=== PATIENT | male | born 1990 | race Caucasian/White ===

== ENCOUNTER → 2020-01-29 20:32 | Outpatient (REF) | payer MEDICARE, MEDICAID, SELFPAY | LOC: HO.SL 20:32 | PROVIDERS: Visit Provider Psychiatry & Neurology Neurology | DX: G47.33 Obstructive sleep apnea (adult) (pediatric) (principal) | CPT/HCPCS: 95811 ==

== ENCOUNTER → 2020-02-19 15:36 | Outpatient (BNVA) | payer MEDICARE, MEDICAID, SELFPAY | PROVIDERS: PCP Nurse Practitioner Family; Referring Provider Nurse Practitioner Family; Visit Provider Urology | DX: Z76.89 Persons encountering health services in other specified circumstances (principal) | CPT/HCPCS: 99212 ==

== ENCOUNTER 2020-03-25 17:49 | Outpatient (REF) | payer MEDICARE, MEDICAID, SELFPAY ==
--- NOTE | 2020-03-25 18:15 | MR_ITS ---
EXAMINATION: MRI OF THE BRAIN WITHOUT CONTRAST CLINICAL INFORMATION: Spasticity, parkinsonism, progressive supranuclear palsy. COMPARISON: There are no prior studies available for comparison at time of dictation.. TECHNIQUE: MRI of the brain was obtained using routine sequences without contrast. FINDINGS: No diffusion abnormalities are identified to suggest an acute or subacute infarct. No mass effect or midline shift is seen. There is mild commensurate prominence the ventricles and sulci. There are extensive linear areas of increased T2 and FLAIR signal in the bilateral centra semiovale. These areas have central low FLAIR signal hyperintense T2 signal. No extra-axial fluid collections are seen. The brainstem and cerebellum are normal. No pathologic magnetic susceptibility artifact is identified on the gradient refocused acquisition. The craniovertebral junction and marrow signal appear normal. 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 The major intracranial flow-voids at the level of the [place] are preserved. The dural venous sinus flow-voids are maintained. The mastoid air cells are well-aerated. There is a retention cyst in the inferior right maxillary sinus. MR/MR head/brain wo con IMPRESSION: 1. There are no acute bleeds or infarcts. No masses are demonstrated. 2. There are extensive areas of increased T2 and FLAIR signal parallel to the bodies of the lateral ventricles bilaterally and into the bilateral centra semiovale, which are nonspecific. They may be consistent with sequelae of a metabolic disorder, leukoencephalopathy which is age-indeterminate, sequelae of ischemia or other process. Correlate with patient history for possible or metabolic cause.
== END 2020-03-25 17:50 | disposition home or self-care (01) ==
LOC: HO.MRI 17:49
PROVIDERS: Visit Provider Psychiatry & Neurology Neurology
DX: Z13.89 Encounter for screening for other disorder (principal)
CPT/HCPCS: 70551; 99212

== ENCOUNTER 2020-03-26 19:07 | Inpatient (IN) | payer MEDICARE, MEDICAID, SELFPAY ==
[2020-03-26 20:53] VITALS: BP 109/67; PULSE 154; RESP 24; TEMP 37; BMI 23.6
--- NOTE | 2020-03-26 21:10 | PC.NURSE ---
PCT AND RN TRIED TO STRAIGHT CATH PATIENT IN TRIAGE. UNSUCCESSFUL, CATHETER COULD BE FELT COILING. NO BLEEDING OR TRAUMA.
--- NOTE | 2020-03-26 22:08 | ED.MALEGU ---
HPI - Male Genitourinary General Chief complaint: Urogenital-Male Stated complaint: difficulty urinating Time Seen by Provider: 03/26/20 22:08 Source: patient and family Mode of arrival: ambulatory Limitations: no limitations and other History of Present Illness HPI Narrative: Patient history of TBI increased anxiety with neurogenic bladder catheterized sometimes unable to catheterize for last 8 hours no urination, patient very anxious bladder scan done in the ER showed no urine in the bladder patient never had any problem similar to like this in the past patient denied any fever no chills no discomfort when urinate no back pain no nausea no vomiting no use of any anticholinergic medication Onset (ago): hour(s) (8) Related Data Home Medications Medication Instructions Recorded Confirmed acetaminophen 500 mg tablet 500 mg PO Q6H PRN 02/19/20 02/26/20 citalopram 40 mg tablet 40 mg PO DAILY 02/19/20 02/26/20 clonazepam 0.5 mg tablet 0.5 mg PO BID PRN 02/19/20 02/26/20 ibuprofen 800 mg tablet 800 mg PO Q8H PRN 02/19/20 02/26/20 lamotrigine 150 mg tablet 150 mg PO DAILY 02/19/20 02/26/20 lamotrigine 25 mg tablet mg PO Q OTHER DAY PRN 02/19/20 02/26/20 sildenafil 100 mg tablet 100 mg PO DAILY PRN 02/19/20 02/26/20 ziprasidone HCl 40 mg capsule 40 mg PO BID 02/19/20 02/26/20 ziprasidone HCl 60 mg capsule 60 mg PO BID 02/19/20 02/26/20 Previous Rx's Medication Instructions Recorded lisinopril 10 mg tablet 10 mg PO DAILY #30 tab 12/31/19 lactulose 10 gram/15 mL oral 15 ml PO DAILY #450 cap 01/24/20 solution omeprazole 20 mg capsule,delayed 40 mg PO DAILY #60 cap 02/24/20 release baclofen 20 mg tablet 20 mg PO DAILY 30 Days #30 tab 03/06/20 ascorbic acid (vitamin C) 1,000 mg 1 g PO DAILY 90 Days #90 tab 03/25/20 tablet mirabegron 50 mg tablet,extended 50 mg PO DAILY 90 Days #90 tab 03/25/20 release 24 hr amlodipine 2.5 mg tablet 2.5 mg PO DAILY #30 tab 03/26/20 Allergies Allergy/AdvReac Type Severity Reaction Status Date / Time No Known Allergies Allergy Verified 03/26/20 20:52 [No Known Allergies*] Review of Systems Review of Systems: Constitutional : No Weight loss, No Fever, No Chills ENT/Mouth : No sore throat, No Rhinorrhea Eyes: No Eye Pain, No Swelling Cardiovascular : No Chest Pain, no palpitations Respiratory : No Cough, No Sputum, no shortness of breath Gastrointestinal : no Nausea, No Vomiting, No Diarrhea, No abdominal Pain, no black stools Genitourinary : No Dysuria, No Urinary Frequency Musculoskeletal : No joint pain, No Myalgias, No Joint Swelling Skin : No Skin Lesions, No rash Neuro : No Weakness, No Numbness, No Dizziness, No Headache Psych : No Anxiety/Panic, No Depression Heme/Lymph: No Bruising, No Lymphadenopathy Endocrine : No Polyuria, No Polydipsia All other systems reviewed and are negative [facility] Past Medical History Medical History Spasticity Social History Social History Advance Directives: No Advance Directives Information Provided: Yes Physical Exam Vital Signs: Vital Signs: Last Vital Signs Temp 98.6 F 03/26/20 20:53 Pulse 154 H 03/26/20 20:53 Resp 24 H 03/26/20 20:53 BP 109/67 03/26/20 20:53 Body Mass Index 23.6 Appearance: Alert. Oriented X3. No acute distress very anxious. Moving around restless Eyes: Pupils equal, round and reactive to light. ENT: Pharynx normal. Neck: Normal inspection. Neck supple. CVS: Tachycardia Pulses normal. Respiratory: No respiratory distress. Breath sounds normal. Abdomen: Soft and nontender. Bowel sounds are present, no mass palpable, no CVA tenderness, no bladder fullness Skin: Skin warm and dry. Normal skin color. Normal skin turgor. Extremities: No lower extremity edema. Neuro: Oriented X 3. No motor deficit. No sensory deficit. Course Course Course Narrative: Straight cath was tried using pediatric feeding tube no urine came out bladder scan was also showing 0 urine patient has anxiety and bladder spasm will give him p.o. fluids recheck him after some time Reevaluation(s) Reevaluation #1: Patient has a leukocytosis etiology not very clear urine sample is not available no bandemia waiting for the lactic acid level blood cultures ordered will give a dose of Rocephin likely UTI versus leukemoid reaction. Will get the CT scan to rule out any bladder outlet obstruction Time: 00:42 MDM - Male Genitourinary MDM Narrative Medical decision making narrative: Patient with neurogenic bladder with anuria for last 8 hours bladder scan is empty CT scan also did not show much urine in the bladder patient received 1 L of IV fluid and drank 20 oz of water in the ER. Very anxious no fever etiology is not very clear will give him empirically Rocephin for possible UTI awaiting for the urine sample patient is by labs septic with elevated lactic acid level elevated WBC count and tachycardia. Likely source of infection is urine. Will admit patient for IV hydration IV antibiotics. Patient received more than 30 cc/kg of IV fluid I suspected severe sepsis at 01:45 once I have the chemistry and lactic acid back which showed ARON with lactic acidosis. Focused exam for sepsis was done at 01:55. Will admit patient to hospitalist service Differential Diagnosis Differential diagnosis: Likely urinary tract infection, urethritis, prostatitis and acute retention of urine Medical Records Attestation: I reviewed the patient's medical records. Lab Data Attestation: I reviewed the patient's lab results. Result diagrams: 03/26/20 23:29 03/27/20 01:06 Labs: Lab Results 03/26/20 03/26/20 03/27/20 Range/Units 23:29 23:29 01:06 WBC 44.3 H* (4.8-10.8) X10*3/uL RBC 5.81 H (4.60-5.80) X10*6/uL Hgb 15.9 (14.0-18.0) g/dl Hct 47.1 (42-52) % MCV 81.1 (80-98) fL MCH 27.4 (27.0-33.0) pg MCHC 33.8 (31.0-36.0) g/dl RDW 13.7 (11.0-16.0) % Plt Count 476 H (160-400) X10*3/uL MPV 10.0 (9.4-12.4) fL Immature Gran % (Auto) 1.8 H (0.0-0.4) % Neut % (Auto) 84.7 H (45-73) % Lymph % (Auto) 4.1 L (20-40) % Christian % (Auto) 9.1 (2-11) % Eos % (Auto) 0.0 (0-4) % Baso % (Auto) 0.3 (0-2) % Lymph # (Auto) 1.8 (1.2-4.9) X10*3/uL Christian # (Auto) 4.0 H (0.1-1.2) X10*3/uL Eos # (Auto) 0.0 (0.0-0.4) X10*3/uL Baso # (Auto) 0.1 (0.0-0.2) X10*3/uL Abs Immat Gran (auto) 0.79 H (0.00-0.03) X10*3/uL Absolute Neuts (auto) 37.6 H (2.0-8.3) X10*3/uL Absolute Nucleated RBC 0.000 (0.0-0.012) X10*3/uL Nucleated RBC % (auto) 0.0 (0.0-0.2) /100WBC Smear Tech's Comments VERIFIED Sodium Cancelled Potassium Cancelled Chloride Cancelled Carbon Dioxide Cancelled Anion Gap Cancelled BUN Cancelled Creatinine Cancelled Estim Creat Clear Calc Cancelled Estimated GFR Cancelled Random Glucose Cancelled Lactic Acid 5.2 H* (0.5-2.0) mmol/L Calcium Cancelled 03/27/20 Range/Units 01:06 WBC (4.8-10.8) X10*3/uL RBC (4.60-5.80) X10*6/uL Hgb (14.0-18.0) g/dl Hct (42-52) % MCV (80-98) fL MCH (27.0-33.0) pg MCHC (31.0-36.0) g/dl RDW (11.0-16.0) % Plt Count (160-400) X10*3/uL MPV (9.4-12.4) fL Immature Gran % (Auto) (0.0-0.4) % Neut % (Auto) (45-73) % Lymph % (Auto) (20-40) % Christian % (Auto) (2-11) % Eos % (Auto) (0-4) % Baso % (Auto) (0-2) % Lymph # (Auto) (1.2-4.9) X10*3/uL Christian # (Auto) (0.1-1.2) X10*3/uL Eos # (Auto) (0.0-0.4) X10*3/uL Baso # (Auto) (0.0-0.2) X10*3/uL Abs Immat Gran (auto) (0.00-0.03) X10*3/uL Absolute Neuts (auto) (2.0-8.3) X10*3/uL Absolute Nucleated RBC (0.0-0.012) X10*3/uL Nucleated RBC % (auto) (0.0-0.2) /100WBC Smear Tech's Comments Sodium 136 Potassium 5.0 Chloride 92 L Carbon Dioxide 20 L Anion Gap 29 H BUN 30 H Creatinine 2.29 H Estim Creat Clear Calc 48.2 Estimated GFR 33 Random Glucose 104 Lactic Acid (0.5-2.0) mmol/L Calcium 9.[address] scan - pelvis: Attestation: I personally reviewed and interpreted this imaging study as follows: Radiologist's impression: CT/CT abdomen pelvis wo con IMPRESSION: No acute finding in the abdomen or pelvis. Left upper pole renal cyst with otherwise normal appearance of the kidneys. Decompressed bladder. Left adrenal adenoma. Critical Care Time Critical Care Time Critical Care Time: Yes Total Critical Care Time: 40 Attestation: Patient care and management Discharge Plan Discharge Clinical Impression: Acute retention of urine Urinary tract infection Qualifiers: Urinary tract infection type: acute cystitis Hematuria presence: without hematuria Qualified Code(s): N30.00 - Acute cystitis without hematuria Sepsis Qualifiers: Sepsis type: sepsis due to unspecified organism Sepsis acute organ dysfunction status: with acute organ dysfunction Severe sepsis acute organ dysfunction type: acute renal failure Acute renal failure type: unspecified Severe sepsis shock status: without septic shock Qualified Code(s): A41.9 - Sepsis, unspecified organism Patient Disposition: Admitted As Inpatient
--- NOTE | 2020-03-26 22:26 | PC.NURSE ---
PT TO ROOM WITH C/O UNABLE TO URINATE . PT ARRIVES ALERT AND VERY ANXIOUS. PT IS DIAPHORETIC AND CONSTANTLY PUSHING ON LOWER ABD AREA. PT DRINKING WATER. PT SELF CATHS AT HOME. PT ARRIVES WITH GIRLFRIEND AT BEDSIDE WITH PT. BLADDER SCAN NEG. AWARE AND IN ROOM FOR EVAL.
[2020-03-26] MEDS: LORazepam 2 MG/ML VIAL IM (22:37)
--- NOTE | 2020-03-26 22:39 | PC.NURSE ---
PT MEDICATED FOR ANXIETY.
--- NOTE | 2020-03-26 23:19 | PC.NURSE ---
Bladder scan 40 ML. Pt visibly uncomfortable, unable to sit still, diaphoretic. MD aware.
--- NOTE | 2020-03-26 23:21 | PC.NURSE ---
MD at bedside, plan for IV, labs and CT of abdomen.
--- NOTE | 2020-03-26 23:30 | PC.NURSE ---
IV established, labs drawn. Plan for Ativan and CT. Continue to monitor.
[2020-03-26 23:35] LABS: Basophils Absolute Auto 0.1 X10*3/uL (0.0-0.2); Basophils Percent Auto 0.3 % (0-2); Hematocrit 47.1 % (42-52); Hemoglobin 15.9 g/dl (14.0-18.0); Imm Gran Abs Auto 0.79 X10*3/uL (0.00-0.03); Imm Gran Pct Auto 1.8 % (0.0-0.4); Lymphocytes Absolute Auto 1.8 X10*3/uL (1.2-4.9); Lymphocytes Percent Auto 4.1 % (20-40); MANUAL DIFF FLAG SCAN; Mean Corpuscular HGB Conc 33.8 g/dl (31.0-36.0); Mean Corpuscular Hemoglobin 27.4 pg (27.0-33.0); Mean Corpuscular Volume 81.1 fL (80-98); Monocytes Percent Auto 9.1 % (2-11); Neutrophils Absolute Auto 37.6 X10*3/uL (2.0-8.3); Neutrophils Percent Auto 84.7 % (45-73); Platelet Count 476 X10*3/uL (160-400); Red Blood Count 5.81 X10*6/uL (4.60-5.80); Red Cell Distribution Width 13.7 % (11.0-16.0); SCAN SMEAR FLAG 1
[2020-03-26] MEDS: LORazepam 2 MG/ML VIAL 1 MG IVPUSH (23:35)
[2020-03-26] MEDS: Phenazopyridine HCL 200 MG TABLET PO (23:36)
[2020-03-26] MEDS: 0.9 % Sodium Chloride 1,000 ML 999 ML IVCONT (23:37)
[2020-03-26 23:43] LABS: White Blood Count 44.3 X10*3/uL (4.8-10.8)
[2020-03-26 23:54] LABS: SLIDE REVIEW VERIFIED
[2020-03-27] VITALS (12 sets, daily range): BP systolic 102–134; BP diastolic 56–80; PULSE 68–101; RESP 16–26; TEMP 36.3–37; O2SAT 95–98
--- NOTE | 2020-03-27 00:01 | CT_ITS ---
EXAMINATION: CT ABDOMEN AND PELVIS WITHOUT CONTRAST CLINICAL INFORMATION: Lateral obstruction COMPARISON: Radiograph 10/17/2019 TECHNIQUE: Multidetector volumetric imaging was performed from the superior aspect of the liver through the pubic symphysis. Sagittal and coronal reformatted images were obtained on the technologist's workstation. Multiple acquisitions performed due to patient motion, not following commands. This CT examination was performed using dose optimization techniques as appropriate, variously including the following: *Automated exposure control *Adjustment of mA and/or kV according to patient size (this includes techniques or standardized protocols for targeted exams where dose is matched to indication/reason for exam; i.e. extremities or head) *Use of iterative reconstruction technique DLP: 969 mGy-cm FINDINGS: LUNG BASES: The visualized lung bases are unremarkable. LIVER, GALLBLADDER, AND BILIARY TREE: The liver is normal in size, shape, and attenuation. No focal hepatic lesion or biliary ductal dilatation is present. Stone noted in the gallbladder lumen measuring PANCREAS: Unremarkable. SPLEEN: Unremarkable. ADRENAL GLANDS: The right adrenal gland is unremarkable. 2.3 cm left adrenal gland nodule which is consistent with a lipid rich adenoma. KIDNEYS AND URETERS: The kidneys are normal in size, shape, and attenuation. No hydronephrosis, hydroureter, or calculi seen. No perinephric stranding. Left upper pole 1.7 cm cyst noted. BLADDER: Decompressed with no gross abnormality. GASTROINTESTINAL TRACT: The stomach is unremarkable. Small bowel normal in caliber. No bowel obstruction. No colonic wall thickening or inflammatory change. Partially visualized normal appendix. No free air. No free fluid. ABDOMINAL WALL: Small fat-containing left inguinal hernia. LYMPH NODES: Normal. VASCULAR: Unremarkable. PELVIC VISCERA: The prostate and seminal vesicles are unremarkable. OSSEOUS STRUCTURES: No acute or suspicious osseous abnormality. CT/CT abdomen pelvis wo con IMPRESSION: No acute finding in the abdomen or pelvis. Left upper pole renal cyst with otherwise normal appearance of the kidneys. Decompressed bladder. Left adrenal adenoma.
--- NOTE | 2020-03-27 00:12 | PC.NURSE ---
PT GIVEN 2ND DOSE OF ATIVAN WITHOUT RELIEF. PT IS CONSTANTLY PUSHING ON LOWER ABD AREA CONSTANTLY, PT STATES I THINK I CAN PUSH URINE OUT . +DIAPHORETIC. NS INFUSING WITHOUT DIFFICULTY. PT ALSO DRINKING WATER PO. PT AWAITING FOR CT.
[2020-03-27] MEDS: ondansetron HCL 4 MG/2 ML VIAL IVPUSH (00:20)
[2020-03-27] MEDS: Morphine Sulfate 4 MG/ML CARTRIDGE IVPUSH (00:21)
[2020-03-27] MEDS: Haloperidol Lactate 5 MG/ML VIAL 2 MG IM (01:07)
[2020-03-27] MEDS: 0.9 % Sodium Chloride 1,000 ML 999 ML IVCONT ×2 (01:21→02:40)
[2020-03-27] MEDS: cefTRIAXone sodium 1 GM in 0.9 % Sodium Chloride 50 ML IV ×2 (01:26→07:52)
[2020-03-27 01:43] LABS: Lactic Acid 5.2 mmol/L (0.5-2.0)
[2020-03-27 01:44] LABS: Anion Gap 29 (12-20); Blood Urea Nitrogen 30 mg/dL (9-16); Calcium 9.7 mg/dL (8.4-10.2); Carbon Dioxide 20 mmol/L (22-29); Chloride 92 mmol/L (96-108); Creatinine Clr Calc Pharmacy 48.2; Estimated Glomerular Filt Rate 33; Glucose Random 104 mg/dL (60-115); Sodium 136 mmol/L (135-145)
--- NOTE | 2020-03-27 02:00 | PC.NURSE ---
POPE 16F INSERTED W/O DIFFICULTY, MICAH COLORED URINE OBTAINED IN POPE BAG. SAMPLE SENT TO LAB. PT REMAINS CONSTANTLY PUSHING ON BLADDER D/T FEELING LIKE I HAVE TO URINATE PT TOLD SEVERAL TIMES TO STOP TOUCHING THAT AREA.
[2020-03-27] MEDS: ALPRAZolam 0.5 MG TABLET 2 MG PO (02:07)
[2020-03-27 03:21] LABS: Reflex Lactate? Lactic Acid Added
[2020-03-27 03:45] LABS: Glucose Urine UA NEG (NEG); Leukocyte Esterase Urine NEG (NEG); Nitrite Urine POS (NEG); PH 5.5 (5.0-8.0); Specific Gravity - Urine 1.015 (1.005-1.025); Urine Blood 3+ (NEG); Urine Ketones NEG (NEG); Urine Protein 2+ MG/DL (NEG-TRACE)
[2020-03-27 03:46] LABS: Appearance Urine HAZY; Color Urine ORANGE
[2020-03-27 03:53] LABS: Amorphous Sediment Urine 2+ /LPF; Bacteria Urine 1+ /LPF; Mucus Urine 2+ /LPF; Squamous Epithelial Cell Urine 2+ /LPF
[2020-03-27 03:56] LABS: COVID-19 Test Negative (Negative)
[2020-03-27 04:14] LABS: Amphetamine Screen Urine POSITIVE (Not Detect); Barbiturates, Urine Not Detected (Not Detect); Benzodiazepines Screen Urine Not Detected (Not Detect); Cannabinoid Screen Urine POSITIVE (Not Detect); Cocaine Screen Urine Not Detected (Not Detect); Opiate Screen Urine POSITIVE (Not Detect); Phencyclidine Screen Urine Not Detected (Not Detect)
[2020-03-27 04:20] LABS: ~Lactic Acid-LAB USE ONLY 1.9 mmol/L (0.5-2.0)
--- NOTE | 2020-03-27 04:29 | PC.NURSE ---
HOSPITALIST IN ROOM FOR EVAL.
--- NOTE | 2020-03-27 05:30 | P.HPHOSP_ITS ---
History of Present Illness Date of Service: 03/27/20 Chief Complaint: Urinary retention This is a 29-year-old with past medical history of TBI, hypertension, spasticity, ANNMARIE, overactive bladder who presents to the hospital complaining of urinary retention. Patient reports the symptoms started the day prior to adm ission, has no fever or chills, has suprapubic pain, no dysuria, but has urgency. He self catheterizes sometimes and reports no nausea vomiting, no diarrhea but has constipation, he has no lower extremity edema. On arrival to the ED patient has a temp of 97.7?, heart rate of 154, respiratory rate of 24, blood pressure 109/67, satting 98% on room air. Labs are significant for WBC count of 44, hemoglobin of 15.9, sodium of 136, potassium 5.0, BUN of 30, creatinine of 2.29, baseline around 0.79, lactic acid of 5.2 , UA positive for nitrites, as well as urine WBC Abdominal CT shows no acute finding in the abdomen or pelvis, left upper pole renal cyst with otherwise normal appearance of the kidneys Past medical history: Hypertension, spasticity, ANNMARIE, overactive bladder, history of TBI Past surgical history: Denies Family history: Denies Social history: Comes from home, lives with his girlfriend, smokes 1 pack per day, denies any alcohol or illicit drug use Review of Systems Review of Systems: Yes all other systems are reviewed and are negative [facility] Medical History (Updated 03/27/20 @ 05:51 by Tello Maldonado MD) Obstructive sleep apnea Overactive bladder Spasticity Social History Advance Directives: No Advance Directives Information Provided: Yes Meds Allergies Allergy/AdvReac Type Severity Reaction Status Date / Time No Known Allergies Allergy Verified 03/26/20 20:52 [No Known Allergies*] Home Medications Medication Instructions Recorded Confirmed Type citalopram 40 mg tablet 40 mg PO DAILY 02/19/20 03/27/20 History clonazepam 0.5 mg tablet 0.5 mg PO BID PRN 02/19/20 03/27/20 History lamotrigine 150 mg tablet 150 mg PO DAILY 02/19/20 03/27/20 History sildenafil 100 mg tablet 100 mg PO DAILY PRN 02/19/20 03/27/20 History ziprasidone HCl 40 mg capsule 40 mg PO BID 02/19/20 03/27/20 History ziprasidone HCl 60 mg capsule 60 mg PO BID 02/19/20 03/27/20 History Physical Exam Vital Signs and Narrative: Vital Signs: Last Vital Signs Temp 98.6 F 03/26/20 20:53 Pulse 96 03/27/20 04:00 Resp 16 03/27/20 04:00 BP 102/65 03/27/20 02:00 Pulse Ox 97 03/27/20 04:00 Body Mass Index 23.6 Const: Other: Diaphoretic, anxious, appears in distress General: cooperative Eyes: General: appearance normal, both eyes and all related structures Resp: Effort & Inspection: normal respiratory effort and able to speak in complete sentences Cardio: Rate: regular rate Rhythm: regular rhythm GI: Palpation (GI): Soft to palpation Auscultation: normal bowel sounds Skin: General skin exam: no rashes or lesions noted Neuro: Cognition (Neuro): normal cognition Extrem: General: Yes normal to inspection and Yes no pedal edema Results Labs CBC and Chem 7: 03/26/20 23:29 03/27/20 01:06 Labs: Laboratory Results - last 24 hr 03/26/20 03/26/20 03/27/20 23:29 23:29 01:06 MCV 81.1 MCH 27.4 MCHC 33.8 RDW 13.7 Plt Count 476 H MPV 10.0 Immature Gran % (Auto) 1.8 H Neut % (Auto) 84.7 H Lymph % (Auto) 4.1 L [place] % (Auto) 9.1 Eos % (Auto) 0.0 Baso % (Auto) 0.3 Lymph # (Auto) 1.8 [place]rell # (Auto) 4.0 H Eos # (Auto) 0.0 Baso # (Auto) 0.1 Abs Immat Gran (auto) 0.79 H Absolute Neuts (auto) 37.6 H Absolute Nucleated RBC 0.000 Nucleated RBC % (auto) 0.0 Smear Tech's Comments VERIFIED Anion Gap Cancelled Estim Creat Clear Calc Cancelled Estimated GFR Cancelled Random Glucose Cancelled Lactic Acid 5.2 H* Lactic Acid Fup @ 2Hr Calcium Cancelled Urine Color Urine Appearance Urine pH Ur Specific [place] Urine Protein Urine Glucose (UA) Urine Ketones Urine Blood Urine Nitrite Ur Leukocyte Esterase Urine RBC Urine WBC Ur Squamous Epith Cells Amorphous Sediment Urine Bacteria Granular Casts Urine Mucus Urine Opiates Screen Ur Barbiturates Screen Ur Phencyclidine Scrn Ur Amphetamines Screen U Benzodiazepines Scrn Urine Cocaine Screen U Marijuana (THC) Screen COVID-19 (GRADY) COVID-19 Responsa Com 03/27/20 03/27/20 03/27/20 01:06 03:33 03:33 MCV MCH MCHC RDW Plt Count MPV Immature Gran % (Auto) Neut % (Auto) Lymph % (Auto) [place] % (Auto) Eos % (Auto) Baso % (Auto) Lymph # (Auto) [place] # (Auto) Eos # (Auto) Baso # (Auto) Abs Immat Gran (auto) Absolute Neuts (auto) Absolute Nucleated RBC Nucleated RBC % (auto) Smear Tech's Comments Anion Gap 29 H Estim Creat Clear Calc 48.2 Estimated GFR 33 Random Glucose 104 Lactic Acid Lactic Acid Fup @ 2Hr Calcium 9.7 Urine Color ORANGE Urine Appearance HAZY Urine pH 5.5 Ur Specific [place] 1.015 Urine Protein 2+ H Urine Glucose (UA) NEG Urine Ketones NEG Urine Blood 3+ H Urine Nitrite POS H Ur Leukocyte Esterase NEG Urine RBC 1-4 Urine WBC 5-9 H Ur Squamous Epith Cells 2+ Amorphous Sediment 2+ Urine Bacteria 1+ Granular Casts 10-14 Urine Mucus 2+ Urine Opiates Screen POSITIVE H Ur Barbiturates Screen Not Detected Ur Phencyclidine Scrn Not Detected Ur Amphetamines Screen POSITIVE H U Benzodiazepines Scrn Not Detected Urine Cocaine Screen Not Detected U Marijuana (THC) Screen POSITIVE H COVID-19 (GRADY) COVID-19 Responsa Com 03/27/20 03/27/20 03:34 03:34 MCV MCH MCHC RDW Plt Count MPV Immature Gran % (Auto) Neut % (Auto) Lymph % (Auto) [place] % (Auto) Eos % (Auto) Baso % (Auto) Lymph # (Auto) [place] # (Auto) Eos # (Auto) Baso # (Auto) Abs Immat Gran (auto) Absolute Neuts (auto) Absolute Nucleated RBC Nucleated RBC % (auto) Smear Tech's Comments Anion Gap Estim Creat Clear Calc Estimated GFR Random Glucose Lactic Acid Lactic Acid Fup @ 2Hr 1.9 Calcium Urine Color Urine Appearance Urine pH Ur Specific [place] Urine Protein Urine Glucose (UA) Urine Ketones Urine Blood Urine Nitrite Ur Leukocyte Esterase Urine RBC Urine WBC Ur Squamous Epith Cells Amorphous Sediment Urine Bacteria Granular Casts Urine Mucus Urine Opiates Screen Ur Barbiturates Screen Ur Phencyclidine Scrn Ur Amphetamines Screen U Benzodiazepines Scrn Urine Cocaine Screen U Marijuana (THC) Screen COVID-19 (GRADY) Negative COVID-19 Clin Com See Note Imaging Radiologist's Impressions: Impressions Abdomen/Pelvis CT 03/27/20 00:01 IMPRESSION: No acute finding in the abdomen or pelvis. Left upper pole renal cyst with otherwise normal appearance of the kidneys. Decompressed bladder. Left adrenal adenoma. Assessment and Plan (1) Urinary tract infection: Qualifiers: Hematuria presence: without hematuria Urinary tract infection type: acute cystitis Qualified Code(s): N30.00 - Acute cystitis without hematuria Status: Acute (2) Sepsis: Qualifiers: Acute renal failure type: unspecified Sepsis acute organ dysfunction status: with acute organ dysfunction Sepsis type: sepsis due to unspecified organism Severe sepsis acute organ dysfunction type: acute renal failure Severe sepsis shock status: without septic shock Qualified Code(s): A41.9 - Sepsis, unspecified organism; R65.20 - Severe sepsis without septic shock; N17.9 - Acute kidney failure, unspecified Status: Acute (3) Neurogenic urinary bladder disorder: Status: Acute (4) Lactic acidosis: Status: Acute (5) Leukocytosis: Status: Acute (6) ARON (acute kidney injury): Status: Acute This is a 29-year-old who presents to the hospital with urinary retention found to be in sepsis secondary to UTI # sepsis - most likely secondary to UTI - negative abdominal CT - has leukocytosis, tachycardia, tachypnea, Plan: - insert him on ceftriaxone - follow cultures - IV fluids # UTI - no evidence of pyelonephritis - most likely due to his history of self catheterization - ceftriaxone as above - follow cultures # ARON - secondary to sepsis as well as UTI - start IV fluids - follow BMP # leukocytosis - secondary to above - follow CBC # lactic acidosis - secondary to infection/sepsis - improved with IV fluids DVT prophylaxis: Heparin subQ
--- NOTE | 2020-03-27 07:27 | PC.NURSE ---
report taken form Inessa DUKES. pt sitting on end of bed upon assessment. pt constantly touching area of mahan insertion. instructed patient to try not to touch area often. pt stated ok . continues to touch area. breakfast provided. pt offers no complaints. waiting for bed assignment.
[2020-03-27] MEDS: 0.9 % Sodium Chloride 1,000 ML 100 ML IVCONT ×2 (07:51→17:00)
[2020-03-27] MEDS: Heparin Sodium,Porcine 5,000 UNIT/ML VIAL 5000 UNIT SUBCUT ×2 (07:53→19:18)
[2020-03-27] MEDS: 0.9 % Sodium Chloride Flush 3 ML SYRINGE IVFLUSH (07:59)
[2020-03-27] MEDS: polyethylene glycoL 3350 17 GM POWD.PACK PO (11:57)
[2020-03-27 12:14] LABS: Basophils Percent Auto 0.1 % (0-2); Eosinophils Percent Auto 0.1 % (0-4); Hematocrit 36.8 % (42-52); Hemoglobin 13.1 g/dl (14.0-18.0); Imm Gran Abs Auto 0.25 X10*3/uL (0.00-0.03); Imm Gran Pct Auto 0.9 % (0.0-0.4); Lymphocytes Absolute Auto 2.5 X10*3/uL (1.2-4.9); Lymphocytes Percent Auto 9.1 % (20-40); MANUAL DIFF FLAG SCAN; Mean Corpuscular HGB Conc 35.6 g/dl (31.0-36.0); Mean Corpuscular Hemoglobin 28.5 pg (27.0-33.0); Monocytes Absolute Auto 1.9 X10*3/uL (0.1-1.2); Monocytes Percent Auto 7.1 % (2-11); Neutrophils Absolute Auto 22.7 X10*3/uL (2.0-8.3); Neutrophils Percent Auto 82.7 % (45-73); Platelet Count 286 X10*3/uL (160-400); Red Cell Distribution Width 13.8 % (11.0-16.0); SCAN SMEAR FLAG 1; White Blood Count 27.5 X10*3/uL (4.8-10.8)
[2020-03-27 12:38] LABS: SLIDE REVIEW VERIFIED
[2020-03-27 12:48] LABS: Anion Gap 18 (12-20); Blood Urea Nitrogen 32 mg/dL (9-16); Carbon Dioxide 21 mmol/L (22-29); Chloride 98 mmol/L (96-108); Creatinine Clr Calc Pharmacy 87.7; Estimated Glomerular Filt Rate > 60; Glucose Random 87 mg/dL (60-115); Potassium 4.6 mmol/l (3.3-5.1); Sodium 132 mmol/L (135-145)
[2020-03-27 13:07] LABS: Calcium 8.2 mg/dL (8.4-10.2)
--- NOTE | 2020-03-27 13:36 | MHC.CM.PN ---
Met with patient in regards to d/c planning. Patient lives with his girlfiend and father, ambulates independently and had no services prior to coming to the hospital. Patient denies the need for services at d/c. PCP verified as Edmond Murillo. Patient's sister has a copy of his HCP. He will attempt to obtain a copy. IMM explained and signed. Patient's family will transport him home when medically stable. Continue to monitor for d/c needs.
[2020-03-27] MEDS: lamoTRIgine 25 MG TABLET 150 MG PO (14:24)
[2020-03-27] MEDS: clonazePAM 0.5 MG TABLET PO ×2 (15:26→22:19)
[2020-03-27] MEDS: Acetaminophen 325 MG TABLET 650 MG PO (19:17)
[2020-03-27] MEDS: Ziprasidone 40 MG CAPSULE PO (20:58)
[2020-03-27] MEDS: Baclofen 20 MG TABLET PO (22:19)
[2020-03-27] MEDS: Nicotine Polacrilex 2 MG GUM BUCCAL (22:19)
[2020-03-28] VITALS (7 sets, daily range): BP systolic 121–147; BP diastolic 53–83; PULSE 58–98; RESP 16–18; TEMP 36.4–36.9; O2SAT 96–98
[2020-03-28] MEDS: 0.9 % Sodium Chloride 1,000 ML 100 ML IVCONT ×3 (04:07→22:06)
[2020-03-28] MEDS: Acetaminophen 325 MG TABLET 650 MG PO ×3 (04:10→19:22)
[2020-03-28] MEDS: Omeprazole 20 MG CAPSULE.DR 40 MG PO (05:27)
[2020-03-28 05:29] LABS: MANUAL DIFF FLAG NO
[2020-03-28 05:31] LABS: Basophils Percent Auto 0.1 % (0-2); Eosinophils Percent Auto 0.2 % (0-4); Hematocrit 38.7 % (42-52); Imm Gran Abs Auto 0.07 X10*3/uL (0.00-0.03); Imm Gran Pct Auto 0.4 % (0.0-0.4); Lymphocytes Absolute Auto 2.2 X10*3/uL (1.2-4.9); Lymphocytes Percent Auto 13.3 % (20-40); Mean Corpuscular HGB Conc 33.6 g/dl (31.0-36.0); Mean Corpuscular Hemoglobin 27.6 pg (27.0-33.0); Mean Corpuscular Volume 82.2 fL (80-98); Mean Platelet Volume 10.5 fL (9.4-12.4); Monocytes Percent Auto 5.9 % (2-11); Neutrophils Percent Auto 80.1 % (45-73); Platelet Count 232 X10*3/uL (160-400); Red Blood Count 4.71 X10*6/uL (4.60-5.80); Red Cell Distribution Width 13.9 % (11.0-16.0); White Blood Count 16.2 X10*3/uL (4.8-10.8)
[2020-03-28 07:54] LABS: Anion Gap 16 (12-20); Blood Urea Nitrogen 19 mg/dL (9-16); Calcium 8.8 mg/dL (8.4-10.2); Carbon Dioxide 25 mmol/L (22-29); Chloride 104 mmol/L (96-108); Creatinine Clr Calc Pharmacy 139.8; Estimated Glomerular Filt Rate > 60; Glucose Random 98 mg/dL (60-115); Potassium 4.7 mmol/l (3.3-5.1); Sodium 140 mmol/L (135-145)
[2020-03-28] MEDS: cefTRIAXone sodium 1 GM in 0.9 % Sodium Chloride 50 ML IV (08:49)
[2020-03-28] MEDS: lamoTRIgine 25 MG TABLET 150 MG PO (08:50)
[2020-03-28] MEDS: Escitalopram Oxalate 20 MG TABLET PO (08:50)
[2020-03-28] MEDS: Mirabegron 50 MG TAB.ER.24H PO (08:50)
[2020-03-28] MEDS: Ascorbic Acid 500 MG TABLET 1000 MG PO (08:52)
[2020-03-28] MEDS: Ziprasidone 40 MG CAPSULE PO ×2 (08:53→21:13)
[2020-03-28] MEDS: Baclofen 20 MG TABLET PO ×3 (08:53→21:15)
[2020-03-28] MEDS: Heparin Sodium,Porcine 5,000 UNIT/ML VIAL 5000 UNIT SUBCUT ×2 (08:53→19:23)
[2020-03-28] MEDS: Nicotine Polacrilex 2 MG GUM BUCCAL ×5 (08:53→21:26)
[2020-03-28] MEDS: Lactulose 20 GM/30 ML SOLUTION 10 GM PO (08:53)
[2020-03-28] MEDS: 0.9 % Sodium Chloride Flush 3 ML SYRINGE IVFLUSH ×2 (08:54→16:14)
[2020-03-28] MEDS: Carbidopa/Levodopa 25/250 TABLET 1 TAB PO ×3 (09:08→21:14)
[2020-03-28] MEDS: clonazePAM 0.5 MG TABLET PO ×3 (09:08→21:14)
--- NOTE | 2020-03-28 09:18 | P.CDIC_ITS ---
CDI Concurrent Query Service Date: 03/28/20 Documentation Clarification: Please clarify if you are treating a proba ble/suspected/likely or confirmed: Clarity and consistency of documentation within the medical record: Sepsis due to UTI Severe sepsis due to UTI with acute organ failure (kidney) Please specify if known or other Provider Response: Sepsis PLEASE DO NOT DELETE/MODIFY EXISTING CONTENT Additional information is needed in order to code to the highest accuracy and appropriate Severity of Illness (SOI). Please clarify the information noted below in your progress notes and discharge summary. Risk Factors/Clinical Indicators/Treatments H&P: Assessment/plan: Sepsis, unspecified, severe sepsis w/o shock, w organ failure, ARON # Sepsis Sepsis most likely secondary to UTI # ARON most likely due to Sepsis LA 5.2 wbc 44.3 rr 22 hr 154 Ceftriaxone CDS: Funmilayo Holland CCS, CDIS Contact Number: [phone] Please Review the information above and exercise your independent professional judgment in responding to the query. If you concur, pleas document in the PROGRESS NOTES and DISCHARGE SUMMARY. If you do not agree with the query, please document in the query above. THIS QUERY IS PART OF THE PERMANENT MEDICAL RECORD
--- NOTE | 2020-03-28 11:25 | MHC.CM.PN ---
Per ROUNDS discussion, Patient continues on IV Ceftriaxone and cultures are pending.Home, no services is the goal for dc and cm will continue to follow for dc planning and possible need to adjust the dc plan.
[2020-03-28] MEDS: oxyCODONE HCl Immed Release 5 MG TABLET PO ×2 (14:56→21:14)
--- NOTE | 2020-03-28 15:54 | HO.PM.IMPN ---
Subjective Subjective Date of Service: 03/28/20 Interval History: patient seen and examined at bedside, patient reported generalized pain Review of Systems Constitutional : No Weight loss, No Fever, No Chills ENT/Mouth : No sore throat, No Rhinorrhea Eyes: No Eye Pain, No Swelling Cardiovascular : No Chest Pain, no palpitations Respiratory : No Cough, No Sputum, no shortness of breath Gastrointestinal : no Nausea, No Vomiting, No Diarrhea, No abdominal Pain, no black stools Genitourinary : No Dysuria, No Urinary Frequency Musculoskeletal : No joint pain, No Myalgias, No Joint Swelling Skin : No Skin Lesions, No rash Neuro : No Weakness, No Numbness, No Dizziness, No Headache Psych : No Anxiety/Panic, No Depression Heme/Lymph: No Bruising, No Lymphadenopathy Endocrine : No Polyuria, No Polydipsia All other systems reviewed and are negative Cardiovascular Cardiovascular: Denies chest pain and Reports dyspnea Respiratory Respiratory: Reports dyspnea Gastrointestinal Gastrointestinal: Denies abdominal pain Physical Exam Vital Signs: Vital Signs: Last Vital Signs Temp 98.4 F 03/28/20 15:23 Pulse 98 03/28/20 15:23 Resp 18 03/28/20 15:23 BP 121/53 L 03/28/20 15:23 Pulse Ox 96 03/28/20 15:23 Body Mass Index 23.6 Const: General: cooperative Eyes: General: appearance normal, both eyes and all related structures Resp: Effort & Inspection: normal respiratory effort and able to speak in complete sentences Cardio: Rate: regular rate Rhythm: regular rhythm GI: Palpation (GI): Soft to palpation Auscultation: normal bowel sounds Skin: General skin exam: no rashes or lesions noted Neuro: Cognition (Neuro): normal cognition Extrem: General: Yes normal to inspection and Yes no pedal edema Objective Data Current Medications Generic Name Dose Route Start Last Admin Trade Name Freq PRN Reason Stop Dose Admin Acetaminophen 650 mg 03/27/20 07:38 03/28/20 08:50 Acetaminophen 325 Mg Tablet PO 650 mg Q6H PRN Administration Pain, Mild (Pain Scale 1-3) Ascorbic Acid 1,000 mg 03/28/20 09:00 03/28/20 08:52 Ascorbic Acid 500 Mg Tablet PO 1,000 mg DAILY ALEX Administration Baclofen 20 mg 03/28/20 09:00 03/28/20 08:54 Baclofen 20 Mg Tablet PO Not Given DAILY ALEX Baclofen 20 mg 03/27/20 22:00 03/28/20 14:24 Baclofen 20 Mg Tablet PO 20 mg TID ALEX Administration Carbidopa/Levodopa 1 tab 03/27/20 22:00 03/28/20 14:24 Carbidopa/Levodopa 25/250 Tablet PO 1 tab TID ALEX Administration Clonazepam 0.5 mg 03/28/20 14:31 03/28/20 14:56 Clonazepam 0.5 Mg Tablet PO 0.5 mg TID PRN Administration Anxiety Docusate Sodium 100 mg 03/27/20 07:38 Docusate Sodium 100 Mg Capsule PO DAILY PRN Constipation Escitalopram Oxalate 20 mg 03/28/20 09:00 03/28/20 08:50 Escitalopram Oxalate 20 Mg Tablet PO 20 mg DAILY ALEX Administration Heparin Sodium (Porcine) 5,000 unit 03/27/20 07:38 03/28/20 08:53 Heparin Sodium,Porcine 5,000 Unit/Ml Vial SUBCUT 5,000 unit Q12H ALEX Administration Sodium Chloride 1,000 mls @ 100 mls/hr 03/27/20 07:38 03/28/20 13:47 Ns IVCONT 100 mls/hr .Q10H ALEX Administration Ceftriaxone Sodium 1 gm/ 50 mls @ 100 mls/hr 03/27/20 07:38 03/28/20 11:28 Sodium Chloride IV Infused Q24H ALEX Infusion Lactulose 10 gm 03/28/20 09:00 03/28/20 08:53 Lactulose 20 Gm/30 Ml Solution PO 10 gm DAILY ALEX Administration Lamotrigine 150 mg 03/27/20 14:00 03/28/20 08:50 Lamotrigine 25 Mg Tablet PO 150 mg DAILY ALEX Administration Mirabegron 50 mg 03/28/20 09:00 03/28/20 08:50 Mirabegron 50 Mg Tab.Er.24h PO 50 mg DAILY ALEX Administration Nicotine Polacrilex 2 mg 03/27/20 21:58 03/28/20 13:29 Nicotine Polacrilex 2 Mg Gum BUCCAL 2 mg Q2H PRN Administration Nicotine Cravings Omeprazole 40 mg 03/28/20 06:30 03/28/20 05:27 Omeprazole 20 Mg Capsule.Dr PO 40 mg DAILY@0630 ALEX Administration Ondansetron HCl 4 mg 03/27/20 07:38 Ondansetron Hcl 4 Mg/2 Ml Vial IVPUSH Q8H PRN Nausea and Vomiting Oxycodone HCl 5 mg 03/28/20 14:33 03/28/20 14:56 Oxycodone Hcl Immed Release 5 Mg Tablet PO 5 mg Q6H PRN Administration Pain, Moderate (Pain Scale 4-6 Polyethylene Glycol 17 gm 03/27/20 09:00 03/28/20 08:55 Polyethylene Glycol 3350 17 Gm Powd.Pack PO Not Given DAILY ALEX Sodium Chloride 3 ml 03/27/20 08:00 03/28/20 08:54 0.9 % Sodium Chloride Flush 3 Ml Syringe IVFLUSH 3 ml QSHIFT ALEX Administration Ziprasidone 40 mg 03/27/20 21:00 03/28/20 08:53 Ziprasidone 40 Mg Capsule PO 40 mg BID ALEX Administration Labs CBC & Chem 7: 03/28/20 05:09 03/28/20 07:15 Microbiology Microbiology Results: Microbiology 03/27/20 00:00 Urine clean catch - Clean Catch Midstream Urine Culture - Final No growth. 03/27/20 01:06 Blood - Venous Blood Culture - Preliminary No growth after 24 hours. 03/27/20 01:07 Blood - Venous Blood Culture - Preliminary No growth after 24 hours. Assessment and Plan (1) Urinary tract infection: Status: Acute (2) Sepsis: Status: Acute (3) Neurogenic urinary bladder disorder: Status: Acute (4) Lactic acidosis: Status: Acute (5) Leukocytosis: Status: Acute (6) ARON (acute kidney injury): Status: Acute Assessment and Plan: This is a 29-year-old who presents to the hospital with urinary retention found to be in sepsis secondary to UTI Sepsis most likely secondary to UTI negative abdominal CT continue ceftriaxone follow cultures IV fluids UTI No evidence of pyelonephritis continue ceftriaxone as above follow cultures ARON resolving Creatinine trending down continue IV fluids follow BMP Leukocytosis trending down secondary to above follow CBC l DVT prophylaxis: Heparin subQ
[2020-03-29 04:00] VITALS: BP 140/97; PULSE 63; RESP 18; TEMP 36.8; O2SAT 100
[2020-03-29] MEDS: clonazePAM 0.5 MG TABLET PO ×2 (04:40→12:06)
[2020-03-29] MEDS: Omeprazole 20 MG CAPSULE.DR 40 MG PO (06:06)
[2020-03-29] MEDS: oxyCODONE HCl Immed Release 5 MG TABLET PO (06:58)
[2020-03-29] MEDS: cefTRIAXone sodium 1 GM in 0.9 % Sodium Chloride 50 ML IV (07:46)
[2020-03-29] MEDS: polyethylene glycoL 3350 17 GM POWD.PACK PO (07:48)
[2020-03-29] MEDS: Baclofen 20 MG TABLET PO (07:49)
[2020-03-29] MEDS: Lactulose 20 GM/30 ML SOLUTION 10 GM PO (07:50)
[2020-03-29] MEDS: Mirabegron 50 MG TAB.ER.24H PO (07:50)
[2020-03-29] MEDS: Escitalopram Oxalate 20 MG TABLET PO (07:50)
[2020-03-29] MEDS: Ziprasidone 40 MG CAPSULE PO (07:50)
[2020-03-29] MEDS: Ascorbic Acid 500 MG TABLET 1000 MG PO (07:50)
[2020-03-29] MEDS: lamoTRIgine 25 MG TABLET 150 MG PO (07:50)
[2020-03-29] MEDS: Carbidopa/Levodopa 25/250 TABLET 1 TAB PO (07:50)
[2020-03-29] MEDS: Heparin Sodium,Porcine 5,000 UNIT/ML VIAL 5000 UNIT SUBCUT (07:51)
[2020-03-29] MEDS: 0.9 % Sodium Chloride 1,000 ML 100 ML IVCONT (07:57)
[2020-03-29 08:00] VITALS: BP 156/91; PULSE 70; RESP 20; TEMP 35.7; O2SAT 98
[2020-03-29 08:53] LABS: MANUAL DIFF FLAG NO
[2020-03-29 08:57] LABS: Basophils Percent Auto 0.1 % (0-2); Eosinophils Percent Auto 0.2 % (0-4); Hematocrit 38.3 % (42-52); Hemoglobin 12.6 g/dl (14.0-18.0); Imm Gran Abs Auto 0.08 X10*3/uL (0.00-0.03); Imm Gran Pct Auto 0.6 % (0.0-0.4); Lymphocytes Absolute Auto 2.2 X10*3/uL (1.2-4.9); Lymphocytes Percent Auto 17.1 % (20-40); Mean Corpuscular HGB Conc 32.9 g/dl (31.0-36.0); Mean Corpuscular Hemoglobin 27.4 pg (27.0-33.0); Mean Corpuscular Volume 83.3 fL (80-98); Mean Platelet Volume 9.9 fL (9.4-12.4); Monocytes Absolute Auto 0.7 X10*3/uL (0.1-1.2); Monocytes Percent Auto 5.7 % (2-11); Neutrophils Absolute Auto 9.6 X10*3/uL (2.0-8.3); Neutrophils Percent Auto 76.3 % (45-73); Platelet Count 250 X10*3/uL (160-400); Red Cell Distribution Width 13.9 % (11.0-16.0); White Blood Count 12.6 X10*3/uL (4.8-10.8)
[2020-03-29] MEDS: ondansetron HCL 4 MG/2 ML VIAL IVPUSH (09:18)
[2020-03-29 09:40] LABS: Anion Gap 16 (12-20); Blood Urea Nitrogen 10 mg/dL (9-16); Calcium 8.7 mg/dL (8.4-10.2); Carbon Dioxide 22 mmol/L (22-29); Chloride 107 mmol/L (96-108); Creatinine Clr Calc Pharmacy 147.3; Estimated Glomerular Filt Rate > 60; Glucose Random 149 mg/dL (60-115); Potassium 3.6 mmol/l (3.3-5.1); Sodium 141 mmol/L (135-145)
[2020-03-29] MEDS: Nicotine Polacrilex 2 MG GUM BUCCAL (09:47)
--- NOTE | 2020-03-29 11:26 | PM.DS ---
DS: Providers Provider Date of Service: 04/05/20 Date of admission: 03/27/20 04:35 Primary care physician: Unknown Physician DS: Diagnosis Discharge Diagnosis (1) Urinary tract infection: Status: Resolved (2) Sepsis: Status: Resolved (3) Neurogenic urinary bladder disorder: Status: Acute (4) Lactic acidosis: Status: Resolved (5) Leukocytosis: Status: Resolved (6) ARON (acute kidney injury): Status: Resolved DS: Medications Discharge Medications Home Medications: Home Medications Medication Instructions Recorded Confirmed citalopram 40 mg tablet 40 mg PO DAILY 02/19/20 03/27/20 clonazepam 0.5 mg tablet 0.5 mg PO TID PRN 02/19/20 03/27/20 lamotrigine 150 mg tablet 150 mg PO DAILY 02/19/20 03/27/20 sildenafil 100 mg tablet 100 mg PO DAILY PRN 02/19/20 03/27/20 ziprasidone HCl 40 mg capsule 40 mg PO BID 02/19/20 03/27/20 Myrbetriq 50 mg PO DAILY 03/27/20 03/27/20 carbidopa-levodopa 1 tab PO TID 03/27/20 03/27/20 Previous Rx's Medication Instructions Recorded lisinopril 10 mg tablet 10 mg PO DAILY #30 tab 12/31/19 lactulose 10 gram/15 mL oral 15 ml PO DAILY #450 cap 01/24/20 solution omeprazole 20 mg capsule,delayed 40 mg PO DAILY #60 cap 02/24/20 release amlodipine 2.5 mg tablet 2.5 mg PO DAILY #30 tab 03/26/20 baclofen 20 mg tablet 20 mg PO DAILY #30 tab 03/28/20 cefuroxime axetil 500 mg PO BID 7 Days #14 tab 03/29/20 DS: Summary Hospital Course Hospital Course: HPI 29-year-old with past medical history of TBI, hypertension, spasticity, ANNMARIE, overactive bladder who presents to the hospital complaining of urinary retention. Patient reports the symptoms started the day prior to admission, has no fever or chills, has suprapubic pain, no dysuria, but has urgency. He self catheterizes sometimes and reports no nausea vomiting, no diarrhea but has constipation, he has no lower extremity edema. On arrival to the ED patient has a temp of 97.7?, heart rate of 154, respiratory rate of 24, blood pressure 109/67, satting 98% on room air. Labs are significant for WBC count of 44, hemoglobin of 15.9, sodium of 136, potassium 5.0, BUN of 30, creatinine of 2.29, baseline around 0.79, lactic acid of 5.2 , UA positive for nitrites, as well as urine WBC Abdominal CT shows no acute finding in the abdomen or pelvis, left upper pole renal cyst with otherwise normal appearance of the kidneys. Hospital course 29-year-old male with history of TBI , admitted with acute kidney injury and possible sepsis secondary to UTI, mahan catheter was placed, patient was started on IV antibiotic, blood cultures remain negative, Aron I was resolved , creatinine was back to normal, sepsis resolved, patient was stable discharged home on p.o. antibiotic and recommended to patient frequent catheterization at home, Time Spent with Patient Time attestation: Total time spent providing and/or coordinating discharge services: Discharge coordination time: Greater than 30 minutes Physical Exam Vital Signs: Vital Signs: Last Vital Signs Temp 96.2 F L 03/29/20 08:00 Pulse 70 03/29/20 08:00 Resp 20 03/29/20 08:00 BP 156/91 H 03/29/20 08:00 Pulse Ox 98 03/29/20 08:00 Body Mass Index 23.6 DS: Data Data Completed and Pending Labs on day of discharge: Laboratory Tests 03/26/20 03/26/20 03/27/20 23:29 23:29 01:06 WBC 44.3 H* RBC 5.81 H Hgb 15.9 Hct 47.1 MCV 81.1 MCH 27.4 MCHC 33.8 RDW 13.7 Plt Count 476 H MPV 10.0 Immature Gran % (Auto) 1.8 H Neut % (Auto) 84.7 H Lymph % (Auto) 4.1 L [place] % (Auto) 9.1 Eos % (Auto) 0.0 Baso % (Auto) 0.3 Lymph # (Auto) 1.8 [place] # (Auto) 4.0 H Eos # (Auto) 0.0 Baso # (Auto) 0.1 Abs Immat Gran (auto) 0.79 H Absolute Neuts (auto) 37.6 H Absolute Nucleated RBC 0.000 Nucleated RBC % (auto) 0.0 Smear Tech's Comments VERIFIED Smear Path Review SEE NOTE Sodium Cancelled Potassium Cancelled Chloride Cancelled Carbon Dioxide Cancelled Anion Gap Cancelled BUN Cancelled Creatinine Cancelled Estim Creat Clear Calc Cancelled Estimated GFR Cancelled Random Glucose Cancelled Lactic Acid 5.2 H* Lactic Acid Fup @ 2Hr Calcium Cancelled Urine Color Urine Appearance Urine pH Ur Specific [place] Urine Protein Urine Glucose (UA) Urine Ketones Urine Blood Urine Nitrite Ur Leukocyte Esterase Urine RBC Urine WBC Ur Squamous Epith Cells Amorphous Sediment Urine Bacteria Granular Casts Urine Mucus Urine Opiates Screen Ur Barbiturates Screen Ur Phencyclidine Scrn Ur Amphetamines Screen U Benzodiazepines Scrn Urine Cocaine Screen U Marijuana (THC) Screen COVID-19 (GRADY) COVID-Diplopia 03/27/20 03/27/20 03/27/20 01:06 03:33 03:33 WBC RBC Hgb Hct MCV MCH MCHC RDW Plt Count MPV Immature Gran % (Auto) Neut % (Auto) Lymph % (Auto) [place] % (Auto) Eos % (Auto) Baso % (Auto) Lymph # (Auto) [place] # (Auto) Eos # (Auto) Baso # (Auto) Abs Immat Gran (auto) Absolute Neuts (auto) Absolute Nucleated RBC Nucleated RBC % (auto) Smear Tech's Comments Smear Path Review Sodium 136 Potassium 5.0 Chloride 92 L Carbon Dioxide 20 L Anion Gap 29 H BUN 30 H Creatinine 2.29 H Estim Creat Clear Calc 48.2 Estimated GFR 33 Random Glucose 104 Lactic Acid Lactic Acid Fup @ 2Hr Calcium 9.7 Urine Color ORANGE Urine Appearance HAZY Urine pH 5.5 Ur Specific [place] 1.015 Urine Protein 2+ H Urine Glucose (UA) NEG Urine Ketones NEG Urine Blood 3+ H Urine Nitrite POS H Ur Leukocyte Esterase NEG Urine RBC 1-4 Urine WBC 5-9 H Ur Squamous Epith Cells 2+ Amorphous Sediment 2+ Urine Bacteria 1+ Granular Casts 10-14 Urine Mucus 2+ Urine Opiates Screen POSITIVE H Ur Barbiturates Screen Not Detected Ur Phencyclidine Scrn Not Detected Ur Amphetamines Screen POSITIVE H U Benzodiazepines Scrn Not Detected Urine Cocaine Screen Not Detected U Marijuana (THC) Screen POSITIVE H COVID-19 (GRADY) COVID-19 Virtual [employer] 03/27/20 03/27/20 03/27/20 03:34 03:34 11:59 WBC 27.5 H RBC 4.60 D Hgb 13.1 L Hct 36.8 L D MCV 80.0 MCH 28.5 MCHC 35.6 RDW 13.8 Plt Count 286 D MPV 10.0 Immature Gran % (Auto) 0.9 H Neut % (Auto) 82.7 H Lymph % (Auto) 9.1 L [place] % (Auto) 7.1 Eos % (Auto) 0.1 Baso % (Auto) 0.1 Lymph # (Auto) 2.5 [place] # (Auto) 1.9 H Eos # (Auto) 0.0 Baso # (Auto) 0.0 Abs Immat Gran (auto) 0.25 H Absolute Neuts (auto) 22.7 H Absolute Nucleated RBC 0.000 Nucleated RBC % (auto) 0.0 Smear Tech's Comments VERIFIED Smear Path Review Sodium Potassium Chloride Carbon Dioxide Anion Gap BUN Creatinine Estim Creat Clear Calc Estimated GFR Random Glucose Lactic Acid Lactic Acid Fup @ 2Hr 1.9 Calcium Urine Color Urine Appearance Urine pH Ur Specific [place] Urine Protein Urine Glucose (UA) Urine Ketones Urine Blood Urine Nitrite Ur Leukocyte Esterase Urine RBC Urine WBC Ur Squamous Epith Cells Amorphous Sediment Urine Bacteria Granular Casts Urine Mucus Urine Opiates Screen Ur Barbiturates Screen Ur Phencyclidine Scrn Ur Amphetamines Screen U Benzodiazepines Scrn Urine Cocaine Screen U Marijuana (THC) Screen COVID-19 (GRADY) Negative COVID-19 Clin Com See Note 03/27/20 03/28/20 03/28/20 11:59 05:09 05:09 WBC 16.2 H RBC 4.71 Hgb 13.0 L Hct 38.7 L MCV 82.2 MCH 27.6 MCHC 33.6 RDW 13.9 Plt Count 232 MPV 10.5 Immature Gran % (Auto) 0.4 Neut % (Auto) 80.1 H Lymph % (Auto) 13.3 L [place] % (Auto) 5.9 Eos % (Auto) 0.2 Baso % (Auto) 0.1 Lymph # (Auto) 2.2 [place] # (Auto) 1.0 Eos # (Auto) 0.0 Baso # (Auto) 0.0 Abs Immat Gran (auto) 0.07 H Absolute Neuts (auto) 13.0 H Absolute Nucleated RBC 0.000 Nucleated RBC % (auto) 0.0 Smear Tech's Comments Smear Path Review Sodium 132 L Cancelled Potassium 4.6 Cancelled Chloride 98 Cancelled Carbon Dioxide 21 L Cancelled Anion Gap 18 Cancelled BUN 32 H Cancelled Creatinine 1.26 Cancelled Estim Creat Clear Calc 87.7 Cancelled Estimated GFR > 60 Cancelled Random Glucose 87 Cancelled Lactic Acid Lactic Acid Fup @ 2Hr Calcium 8.2 L D Cancelled Urine Color Urine Appearance Urine pH Ur Specific [place] Urine Protein Urine Glucose (UA) Urine Ketones Urine Blood Urine Nitrite Ur Leukocyte Esterase Urine RBC Urine WBC Ur Squamous Epith Cells Amorphous Sediment Urine Bacteria Granular Casts Urine Mucus Urine Opiates Screen Ur Barbiturates Screen Ur Phencyclidine Scrn Ur Amphetamines Screen U Benzodiazepines Scrn Urine Cocaine Screen U Marijuana (THC) Screen COVID-19 (GRADY) COVID-19 [employer] Com 03/28/20 03/29/20 03/29/20 07:15 08:48 08:48 WBC 12.6 H RBC 4.60 Hgb 12.6 L Hct 38.3 L MCV 83.3 MCH 27.4 MCHC 32.9 RDW 13.9 Plt Count 250 MPV 9.9 Immature Gran % (Auto) 0.6 H Neut % (Auto) 76.3 H Lymph % (Auto) 17.1 L [place] % (Auto) 5.7 Eos % (Auto) 0.2 Baso % (Auto) 0.1 Lymph # (Auto) 2.2 [place] # (Auto) 0.7 Eos # (Auto) 0.0 Baso # (Auto) 0.0 Abs Immat Gran (auto) 0.08 H Absolute Neuts (auto) 9.6 H Absolute Nucleated RBC 0.000 Nucleated RBC % (auto) 0.0 Smear Tech's Comments Smear Path Review Sodium 140 141 Potassium 4.7 3.6 D Chloride 104 107 Carbon Dioxide 25 22 Anion Gap 16 16 BUN 19 H 10 Creatinine 0.79 0.75 Estim Creat Clear Calc 139.8 147.3 Estimated GFR > 60 > 60 Random Glucose 98 149 H D Lactic Acid Lactic Acid Fup @ 2Hr Calcium 8.8 D 8.7 Urine Color Urine Appearance Urine pH Ur Specific [place] Urine Protein Urine Glucose (UA) Urine Ketones Urine Blood Urine Nitrite Ur Leukocyte Esterase Urine RBC Urine WBC Ur Squamous Epith Cells Amorphous Sediment Urine Bacteria Granular Casts Urine Mucus Urine Opiates Screen Ur Barbiturates Screen Ur Phencyclidine Scrn Ur Amphetamines Screen U Benzodiazepines Scrn Urine Cocaine Screen U Marijuana (THC) Screen COVID-19 (GRADY) COVID-19 Clin Com Preliminary micro results at discharge 03/27/20 01:06 Blood Culture - Preliminary Blood - Venous No growth after 48 hours. 03/27/20 01:07 Blood Culture - Preliminary Blood - Venous No growth after 48 hours. Discharge Plan Discharge Anticipated Discharge Date/Time: 03/29/20 11:11 Patient Disposition: Home, Self-Care Referrals: Physician,Unknown [Primary Care Provider] - Discharge Medications: New cefuroxime axetil 500 mg tablet 500 mg PO BID 7 Days Qty: 14 RF: 0 Continued lisinopril 10 mg tablet 10 mg PO DAILY Qty: 30 RF: 3 lactulose 10 gram/15 mL solution 15 ml PO DAILY Qty: 450 RF: 2 omeprazole 20 mg capsule,delayed release(DR/EC) 40 mg PO DAILY Qty: 60 RF: 4 amlodipine 2.5 mg tablet 2.5 mg PO DAILY Qty: 30 RF: 2 baclofen 20 mg tablet 20 mg PO DAILY Qty: 30 RF: 0 carbidopa-levodopa 25-250 mg tablet 1 tab PO TID RF: 0 Myrbetriq 50 mg tablet extended release 24 hr 50 mg PO DAILY RF: 0 clonazepam 0.5 mg tablet 0.5 mg PO TID PRN (Reason: Anxiety) RF: 0 lamotrigine 150 mg tablet 150 mg PO DAILY RF: 0 citalopram 40 mg tablet 40 mg PO DAILY RF: 0 ziprasidone HCl 40 mg capsule 40 mg PO BID RF: 0 sildenafil 100 mg tablet 100 mg PO DAILY PRN (Reason: Erectile Dysfunction) RF: 0 Discharge Orders: Discharge Order (Routine); Ordered 03/29/20 Ordered By: To Garcia Diet: advance to usual diet Activity on Discharge: As tolerated Discharge Date/Time: 03/29/20 13:38 Visit Report Forms: Patient Portal Discharge page Care Plan Goals: see above Health Concerns: urinary retention Plan of Treatment: see above
--- NOTE | 2020-03-29 11:53 | MHC.CM.PN ---
PT TO DC HOME TODAY WITH NO SERVICES
== END 2020-03-29 13:38 | disposition home or self-care (01) | DRG 872 ==
LOC: HO.ED 03-27 01:55 → HO.IMC 03-27 18:53
PROVIDERS: Student in an Organized Health Care Education/Training Program; Admitting Provider Internal Medicine; Emergency Provider Internal Medicine; PCP Nurse Practitioner Family; Visit Provider Internal Medicine
DX: A41.9 Sepsis, unspecified organism (principal); N17.9 Acute kidney failure, unspecified; N39.0 Urinary tract infection, site not specified; E87.2 Acidosis; D72.829 Elevated white blood cell count, unspecified; Z87.820 Personal history of traumatic brain injury; N31.9 Neuromuscular dysfunction of bladder, unspecified; Z20.828 Contact with and (suspected) exposure to other viral communicable diseases; F17.210 Nicotine dependence, cigarettes, uncomplicated; Z71.6 Tobacco abuse counseling; Z79.899 Other long term (current) drug therapy
CPT/HCPCS: 36415; 70551; 74176; 80048; 80307; 81001; 83605; 85025; 85060; 87040; 87086; 87635; 96361; 96365; 96372; 96375; 99212; 99285; 99291; J0696; J2060; J2270; J2405

== ENCOUNTER 2020-04-06 20:56 | Emergency (ER) | payer MEDICARE, MEDICAID, SELFPAY ==
[2020-04-06 22:45] VITALS: BP 116/67; PULSE 91; RESP 16; TEMP 36.7; O2SAT 99; BMI 23.6
[2020-04-06 23:16] LABS: Glucose Urine UA NEG (NEG); Leukocyte Esterase Urine 1+ (NEG); Nitrite Urine NEG (NEG); PH 5.5 (5.0-8.0); Urine Blood 3+ (NEG); Urine Ketones NEG (NEG); Urine Protein NEG (NEG-TRACE)
[2020-04-06 23:19] LABS: Appearance Urine HAZY; Color Urine YELLOW
--- NOTE | 2020-04-06 23:23 | PC.NURSE ---
PT USED THE [facility]IN[facility]
[2020-04-06 23:30] LABS: Bacteria Urine TRACE /LPF; RBC Urine 30-49 /HPF (0)
[2020-04-06 23:31] LABS: Hyaline Casts Urine 0-2 /LPF; WBC Clumps Urine NOTED
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
--- NOTE | 2020-04-07 00:09 | PC.NURSE ---
PT BLADDER SCANNED 98CC IN BLADDER AFTER VOIDED ON OWN.
--- NOTE | 2020-04-07 00:46 | PC.NURSE ---
PT VOID 300 ML IN URINAL.
== END 2020-04-07 00:51 | disposition home or self-care (01) ==
PROVIDERS: Emergency Provider Student in an Organized Health Care Education/Training Program; PCP Nurse Practitioner Family
DX: N31.9 Neuromuscular dysfunction of bladder, unspecified (principal); R33.9 Retention of urine, unspecified; F17.200 Nicotine dependence, unspecified, uncomplicated; Z71.6 Tobacco abuse counseling; Z79.899 Other long term (current) drug therapy
CPT/HCPCS: 81001; 87086; 99283; 99284

== ENCOUNTER 2020-04-07 12:16 | Emergency (ER) | payer MEDICARE, MEDICAID, SELFPAY ==
[2020-04-07 12:31] VITALS: BP 138/77; PULSE 119; RESP 22; TEMP 36.5; O2SAT 97; BMI 23.0
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
[2020-04-07] MEDS: LORazepam 1 MG TABLET PO (13:19)
[2020-04-07] MEDS: Tamsulosin HCL 0.4 MG CAPSULE 0.8 MG PO (13:19)
[2020-04-07 13:59] LABS: Glucose Urine UA NEG (NEG); Leukocyte Esterase Urine NEG (NEG); Nitrite Urine NEG (NEG); PH 5.5 (5.0-8.0); Specific Gravity - Urine >= 1.030 (1.005-1.025); Urine Blood NEG (NEG); Urine Ketones 5 MG/DL (NEG); Urine Protein NEG (NEG-TRACE)
[2020-04-07 14:01] LABS: Appearance Urine CLEAR; Color Urine YELLOW
--- NOTE | 2020-04-07 14:13 | PC.NURSE ---
Pt up many, many times for nurses station asking for cath, bladder scanned x2 for max of 17ml. Explained why we will not provide cath until there is more urine, given water and encouraged po intake. Pt appears to be under the influence, enlarged pupils, increased sweating. Pt instructed to return back to stretcher, drink water, and will re-assess with bladder scanner.
[2020-04-07 14:35] LABS: Amphetamine Screen Urine Not Detected (Not Detect); Barbiturates, Urine Not Detected (Not Detect); Benzodiazepines Screen Urine POSITIVE (Not Detect); Cannabinoid Screen Urine POSITIVE (Not Detect); Cocaine Screen Urine Not Detected (Not Detect); Opiate Screen Urine POSITIVE (Not Detect); Phencyclidine Screen Urine Not Detected (Not Detect)
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
== END 2020-04-07 15:20 | disposition home or self-care (01) ==
PROVIDERS: Nurse Practitioner Family; Emergency Provider Emergency Medicine; PCP Nurse Practitioner Family
DX: N31.9 Neuromuscular dysfunction of bladder, unspecified (principal); N32.81 Overactive bladder; N32.89 Other specified disorders of bladder; Z79.899 Other long term (current) drug therapy
CPT/HCPCS: 80307; 81003; 99284

== ENCOUNTER → 2020-04-24 10:02 | Outpatient (BNVA) | payer MEDICARE, MEDICAID, OTHER, SELFPAY | PROVIDERS: Visit Provider Urology | DX: N31.9 Neuromuscular dysfunction of bladder, unspecified (principal); N39.0 Urinary tract infection, site not specified; G25.2 Other specified forms of tremor | CPT/HCPCS: 81002; 99212 ==

== ENCOUNTER → 2020-04-29 10:32 | Outpatient (BNVA) | payer MEDICARE, MEDICAID, OTHER, SELFPAY | PROVIDERS: PCP Nurse Practitioner Family; Visit Provider Psychiatry & Neurology Neurology | DX: Z13.89 Encounter for screening for other disorder (principal) | CPT/HCPCS: Q3014 ==

== ENCOUNTER 2020-05-19 06:14 | Day surgery (SDC) | payer MEDICARE, MEDICAID, SELFPAY ==
[2020-05-13 14:36] VITALS: BMI 23.7
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
[2020-05-19] VITALS (7 sets, daily range): BP systolic 89–117; BP diastolic 48–85; PULSE 57–76; RESP 14–20; TEMP 36.3–36.5; O2SAT 93–100
[2020-05-19] MEDS: Lactated Ringers 1,000 ML 50 ML IV (06:48)
--- NOTE | 2020-05-19 07:06 | PC.NURSE ---
pt lung sounds ins/exp wheezing noted.sats 91-93. resp are reg and none labored. denies any discomfort. informed anesthesia. Dr Herbert gave pt 2 puffs of albuterol inhaler. lungs now have slight wheezing noted sats 95-96 % currently.
--- NOTE | 2020-05-19 07:11 | MHC.SHP ---
Pre-Procedural Eval Section A The patient is an INPATIENT: No Changes since office visit: No Cold of Flu in the past 2 weeks, No New Medical Problems, No Changes in Medication and No Patient answered all questions The History & Physical has been completed within 30 days and I have reviewed it.: Yes Section B Chief Complaint: dysfunction of bladder Allergies: Allergies Allergy/AdvReac Type Severity Reaction Status Date / Time No Known Allergies Allergy Verified 05/19/20 06:19 [No Known Allergies*] Plan Diagnosis/Plan: Unchanged I have reviewed the history and physical and performed a pertinent physical examination on my patient. No changes have occurred unless specified. Cystoscopy, Botox injection
[2020-05-19] MEDS: levoFLOXacin 500 MG TABLET PO (07:21)
--- NOTE | 2020-05-19 07:54 | PM.OP ---
Brief Operative Note Date of Service: 05/19/20 Pre-op diagnosis: Hypertonic neurogenic bladder Post-op diagnosis: same Procedure: cystoscopy with Botox injection Surgeon: Rivera Mckeon MD Anesthesia: GLMA Estimated blood loss (mL): 0 Pathology: none sent Condition: stable Disposition: same day
--- NOTE | 2020-05-19 07:55 | P.OP_ITS ---
Operative Note Operative Note Date of Service: 05/19/20 Narrative: PreOperative Diagnosis: hypertonic neurogenic bladder Post Operative Diagnosis: hypertonic neurogenic bladder Procedure: cystoscopy with Botox injection Surgeon: Dr Rivera Mckeon Anesthesia: LMA Indications for procedure: ongoing neurogenic bladder with persistent urgency frequency. This is also in the setting of traumatic brain injury. Nonresponsive to overactive bladder medications. Failed multiple oral medications. Plan for trial of Botox. Risks and benefits been discussed Procedure: After informed consent was verified the patient was brought to the operating room and placed in a supine position. anesthesia was administered per protocol. patient was placed in modified Dorsal lithotomy position and prepped and draped in a sterile fashion. Safety pause time-out was performed. Antibiotics being given. Twenty-two [place] cystoscope inserted per urethra. No abnormality noted of anterior posterior urethra. Bladder was entered. No abnormality noted of bladder. Both ureteric orifices in normal position. . Doing Botox was injected a on posterior bladder wall. A standard 20 injection side 4 row by 5 injection locations with 0.5 cc at each location. This was for a total of 100 mg Botox in 10 cc injectable normal saline. He tolerated the procedure well was extubated in the operating room transferred in stable condition recovery area. Pathology: Drains:
[2020-05-19] MEDS: Phenazopyridine HCL 100 MG TABLET PO (08:36)
[2020-05-19] MEDS: Acetaminophen 325 MG TABLET 650 MG PO (08:36)
== END 2020-05-19 09:21 | disposition home or self-care (01) ==
PROVIDERS: PCP Nurse Practitioner Family; Visit Provider Urology
PROC: 0TJB8ZZ Inspection of Bladder, Via Natural or Artificial Opening Endoscopic (ICD-10-PCS; CPT 52000; principal; 2020-05-19 07:30)
DX: N31.8 Other neuromuscular dysfunction of bladder (principal); N40.1 Benign prostatic hyperplasia with lower urinary tract symptoms; R39.15 Urgency of urination; N32.81 Overactive bladder; G23.1 Progressive supranuclear ophthalmoplegia [Steele-Richardson-Olszewski]; G47.33 Obstructive sleep apnea (adult) (pediatric); G93.1 Anoxic brain damage, not elsewhere classified; G20 Parkinson's disease; F42.9 Obsessive-compulsive disorder, unspecified; Z99.89 Dependence on other enabling machines and devices; F17.210 Nicotine dependence, cigarettes, uncomplicated; F19.10 Other psychoactive substance abuse, uncomplicated
CPT/HCPCS: 52287; J1100; J2250; J2405; J3010

== ENCOUNTER → 2020-06-24 14:49 | Outpatient (BNVA) | payer MEDICARE, MEDICAID, SELFPAY | PROVIDERS: PCP Nurse Practitioner Family; Visit Provider Urology | DX: N52.9 Male erectile dysfunction, unspecified (principal); N31.9 Neuromuscular dysfunction of bladder, unspecified | CPT/HCPCS: 99212 ==

== ENCOUNTER → 2020-07-01 10:30 | Outpatient (BNVA) | payer MEDICARE, MEDICAID, SELFPAY | PROVIDERS: PCP Nurse Practitioner Family; Visit Provider Psychiatry & Neurology Neurology | DX: Z13.89 Encounter for screening for other disorder (principal) | CPT/HCPCS: Q3014 ==

== ENCOUNTER 2020-07-10 13:00 | Outpatient (RCR) | payer MEDICARE, MEDICAID, SELFPAY ==
--- NOTE | 2020-03-25 13:49 | MHC.PT.EP ---
[facility] [place] Office [place] [facility] [place] Office [address] [phone] F: [phone] F: [phone] F: [phone] F: [phone] Physical Therapy Plan of Care Date of Evaluation: 03/25/20 Date of Surgery: Diagnosis: spasticity, TBI Assessment: Pt has increased spasticity in his bilateral gastrocs with 4-6 beats of clonus noted bilaterally with resisted ankle DF. Increased tone noted in right leg. Pt takes oral baclofen and reports doing regular stretching for his legs. However upon demonstration it seems his stretches at home are quick with short hold times. He will benefit from education on proper stretches, functional movements, and possibly obtaining an AFO. Frequency and Duration: The patient will be seen 2x/week x 4 weeks Short Term Goals: Pt to show proper return demonstration of HEP to improve compliance and carryover. Intermediate Goals: 1. pt to be able to do all functional movements such as squatting, bending, and reaching overhead with good balance and motor control.. 2. 1. Pt to be able to walk with a heel to toe reciprocal gait pattern with adequate toe clearance. Treatment Plan: Modalities to reduce pain, spasms and effusion. Manual therapy to restore motion and function. Therapeutic exercise to improve strength and flexibility. Neuromuscular re-education for posture and balance. Therapeutic activities to return to functional activities of daily living. Electronically signed by: Esther Marsh PT DPT Please sign and return to therapist. Thank you for your referral.
== END 2020-08-22 09:00 | disposition home or self-care (01) ==
LOC: HO.PT 13:00
PROVIDERS: PCP Nurse Practitioner Family; Visit Provider Internal Medicine
DX: R25.2 Cramp and spasm (principal)
CPT/HCPCS: 97110; 97112; 97116; 97140; 97163; 97530

== ENCOUNTER → 2020-09-25 14:27 | Outpatient (BNVA) | payer MEDICARE, MEDICAID, SELFPAY | PROVIDERS: PCP Nurse Practitioner Family; Visit Provider Urology | DX: N52.9 Male erectile dysfunction, unspecified (principal); N31.9 Neuromuscular dysfunction of bladder, unspecified; N40.0 Benign prostatic hyperplasia without lower urinary tract symptoms; G47.33 Obstructive sleep apnea (adult) (pediatric); G20 Parkinson's disease | CPT/HCPCS: 99212 ==

== ENCOUNTER 2020-12-15 13:53 | Outpatient (REF) | payer MEDICARE, MEDICAID, SELFPAY ==
[2020-12-15 16:01] LABS: Appearance Urine CLEAR; Color Urine YELLOW; Glucose Urine UA NEG (NEG); Leukocyte Esterase Urine NEG (NEG); Nitrite Urine NEG (NEG); Specific Gravity - Urine >= 1.030 (1.005-1.025); Urine Blood NEG (NEG); Urine Ketones NEG (NEG); Urine Protein NEG (NEG-TRACE)
[2020-12-15 16:28] LABS: Alanine Aminotransferase < 6 U/L (0-40); Albumin Level 4.5 g/dL (3.5-5.0); Alkaline Phosphatase 92 U/L (39-117); Anion Gap 16 (12-20); Aspartate Amino Transferase 6 U/L (5-37); Bilirubin Total 0.4 mg/dL (0.0-1.0); Blood Urea Nitrogen 11 mg/dL (9-16); Calcium 9.6 mg/dL (8.4-10.2); Carbon Dioxide 29 mmol/L (22-29); Chloride 102 mmol/L (96-108); Cholesterol 146 mg/dL; Estimated Glomerular Filt Rate > 60; Glucose Fasting 93 mg/dL (60-99); HDL Cholesterol 40 mg/dL; LDL Cholesterol Calculated 87 mg/dl; Potassium 4.6 mmol/L (3.3-5.1); Sodium 142 mmol/L (135-145); Total Protein 7.2 g/dL (6.5-8.0); Triglycerides 96 mg/dL
[2020-12-15 16:47] LABS: TSH reflex Free T4 0.81 uIU/mL (0.32-4.0)
[2020-12-19 02:37] LABS: Testosterone, Total 147 ng/dL (250-1100)
== END 2020-12-15 13:54 | disposition home or self-care (01) ==
LOC: HO.LAB 13:53
PROVIDERS: PCP Nurse Practitioner Family; Visit Provider Urology
DX: N52.9 Male erectile dysfunction, unspecified (principal); F41.9 Anxiety disorder, unspecified
CPT/HCPCS: 36415; 80053; 80061; 81003; 84403; 84443

== ENCOUNTER → 2020-12-30 12:57 | Outpatient (REF) | payer MEDICARE, MEDICAID, SELFPAY | LOC: HO.SL 12:57 | PROVIDERS: PCP Nurse Practitioner Family; Visit Provider Psychiatry & Neurology Neurology | DX: G47.33 Obstructive sleep apnea (adult) (pediatric) (principal) | CPT/HCPCS: 99211 ==

== ENCOUNTER → 2021-01-06 09:49 | Outpatient (BNVA) | payer MEDICARE, MEDICAID, SELFPAY | PROVIDERS: PCP Nurse Practitioner Family; Referring Provider Nurse Practitioner Family; Visit Provider Psychiatry & Neurology Neurology | CPT/HCPCS: Q3014 ==

== ENCOUNTER → 2021-03-11 14:53 | Outpatient (BNVA) | payer MEDICARE, MEDICAID, SELFPAY | PROVIDERS: PCP Nurse Practitioner Family; Visit Provider Urology | DX: E29.1 Testicular hypofunction (principal); N52.9 Male erectile dysfunction, unspecified; N31.9 Neuromuscular dysfunction of bladder, unspecified | CPT/HCPCS: 99212 ==

== ENCOUNTER 2021-03-23 11:20 | Outpatient (REF) | payer MEDICARE, MEDICAID, SELFPAY ==
[2021-03-24 05:26] LABS: Sex Hormone Binding Globulin 34 nmol/L (10-50)
[2021-03-24 06:16] LABS: Follicle Stimulating Hormone 4.1 mIU/mL (1.6-8.0); Lutenizing Hormone 0.6 mIU/mL (1.5-9.3)
[2021-03-27 15:06] LABS: Testosterone, Free 18.5 pg/mL (35.0-155.0); Testosterone, Total 150 ng/dL (250-1100)
== END 2021-03-23 11:21 | disposition home or self-care (01) ==
LOC: HO.LAB 11:20
PROVIDERS: Visit Provider Urology
DX: E29.1 Testicular hypofunction (principal)
CPT/HCPCS: 36415; 83001; 83002; 84270; 84402; 84403

== ENCOUNTER → 2021-04-07 14:29 | Outpatient (BNVA) | payer MEDICARE, MEDICAID, SELFPAY | PROVIDERS: PCP Nurse Practitioner Family; Referring Provider Nurse Practitioner Family; Visit Provider Psychiatry & Neurology Neurology | DX: G47.33 Obstructive sleep apnea (adult) (pediatric) (principal); G47.31 Primary central sleep apnea | CPT/HCPCS: 99212 ==

== ENCOUNTER → 2021-04-22 12:39 | Outpatient (BNVA) | payer MEDICARE, MEDICAID, SELFPAY | PROVIDERS: PCP Nurse Practitioner Family; Visit Provider Urology | DX: Z13.89 Encounter for screening for other disorder (principal) | CPT/HCPCS: Q3014 ==

== ENCOUNTER → 2021-05-19 11:54 | Outpatient (BNVA) | payer MEDICARE, MEDICAID, SELFPAY | PROVIDERS: PCP Nurse Practitioner Family; Visit Provider Urology | DX: Z71.89 Other specified counseling (principal) | CPT/HCPCS: 99211 ==

== ENCOUNTER 2021-07-01 12:36 | Outpatient (REF) | payer MEDICARE, MEDICAID, SELFPAY ==
[2021-07-02 05:56] LABS: Lutenizing Hormone 0.2 mIU/mL (1.5-9.3)
[2021-07-06 17:31] LABS: Testosterone, Free 97.3 pg/mL (35.0-155.0); Testosterone, Total 695 ng/dL (250-1100)
== END 2021-07-01 12:37 | disposition home or self-care (01) ==
LOC: HO.10HDL 12:36
PROVIDERS: Visit Provider Urology
DX: E29.1 Testicular hypofunction (principal)
CPT/HCPCS: 36415; 83002; 84402; 84403

== ENCOUNTER → 2021-07-14 14:05 | Outpatient (BNVA) | payer MEDICARE, MEDICAID, SELFPAY | PROVIDERS: PCP Nurse Practitioner Family; Visit Provider Psychiatry & Neurology Neurology | DX: Z13.89 Encounter for screening for other disorder (principal) ==

== ENCOUNTER → 2021-07-15 13:20 | Outpatient (BNVA) | payer MEDICARE, MEDICAID, SELFPAY | PROVIDERS: PCP Nurse Practitioner Family; Visit Provider Urology | DX: E23.0 Hypopituitarism (principal); N52.9 Male erectile dysfunction, unspecified; N31.9 Neuromuscular dysfunction of bladder, unspecified; Z79.899 Other long term (current) drug therapy | CPT/HCPCS: 99212 ==

== ENCOUNTER → 2021-08-04 12:05 | Outpatient (BNVA) | payer MEDICARE, MEDICAID, SELFPAY | PROVIDERS: PCP Nurse Practitioner Family; Visit Provider Urology | DX: Z13.89 Encounter for screening for other disorder (principal) ==

== ENCOUNTER 2021-10-07 11:27 | Outpatient (REF) | payer MEDICARE, MEDICAID, SELFPAY ==
[2021-10-07 12:41] LABS: Hematocrit 35.9 % (42.0-52.0); Hemoglobin 11.9 g/dl (14.0-18.0); Mean Corpuscular HGB Conc 33.1 g/dl (31.0-36.0); Mean Corpuscular Hemoglobin 26.9 pg (27.0-33.0); Mean Platelet Volume 9.2 fL (9.4-12.4); Platelet Count 357 X10*3/uL (160-400); Red Blood Count 4.43 X10*6/uL (4.60-5.80); Red Cell Distribution Width 13.9 % (11.0-16.0); White Blood Count 9.5 X10*3/uL (4.8-10.8)
[2021-10-07 13:22] LABS: Erythrocyte Sedimentation Rate 37 MM/HR (0-15)
[2021-10-07 13:35] LABS: Alanine Aminotransferase 7 U/L (0-40); Albumin Level 4.3 g/dL (3.5-5.0); Alkaline Phosphatase 81 U/L (39-117); Anion Gap 15 (12-20); Aspartate Amino Transferase 13 U/L (5-37); Bilirubin Direct 0.2 mg/dL (0.0-0.5); Bilirubin Total 0.4 mg/dL (0.0-1.0); Blood Urea Nitrogen 10 mg/dL (9-16); Carbon Dioxide 28 mmol/L (22-29); Chloride 100 mmol/L (96-108); Estimated Glomerular Filt Rate > 60; Glucose Random 118 mg/dL (60-115); Potassium 3.9 mmol/L (3.3-5.1); Sodium 139 mmol/L (135-145); Vitamin D 25-OH Total 31.9 ng/mL (>30)
[2021-10-07 13:46] LABS: Rheumatoid Factor < 15.0 IU/mL (<15.0); Uric Acid 5.3 mg/dL (3.4-7.0)
[2021-10-07 14:43] LABS: Amphetamine Screen Urine POSITIVE (Not Detect); Barbiturates, Urine Not Detected (Not Detect); Benzodiazepines Screen Urine Not Detected (Not Detect); Cannabinoid Screen Urine Not Detected (Not Detect); Cocaine Screen Urine Not Detected (Not Detect); Fentanyl, urine POSITIVE (Not Detect); Opiate Screen Urine Not Detected (Not Detect); Phencyclidine Screen Urine Not Detected (Not Detect)
[2021-10-09 21:47] LABS: Lyme Abs Screen <0.90 index
[2021-10-12 15:02] LABS: Anti Nuclear Antibody Screen NEGATIVE (NEGATIVE)
== END 2021-10-07 11:28 | disposition home or self-care (01) ==
LOC: HO.LAB 11:27
PROVIDERS: PCP Physician Assistant; Visit Provider Psychiatry & Neurology Neurology
DX: M79.7 Fibromyalgia (principal); R26.9 Unspecified abnormalities of gait and mobility
CPT/HCPCS: 80048; 80076; 80307; 82306; 82550; 83735; 84550; 85027; 85652; 86038; 86039; 86431; 86617; 86618

== ENCOUNTER 2021-11-03 13:14 | Outpatient (REF) | payer MEDICARE, MEDICAID, SELFPAY ==
--- NOTE | ~2021-11-03 | XR_ITS ---
EXAMINATION: XR LUMBOSACRAL SPINE CLINICAL INFORMATION: Back pain after contusion COMPARISON: None TECHNIQUE: Three views of the lumbosacral spine. FINDINGS: There is no fracture or destructive process or alignment abnormality. Vertebral body heights are preserved. There are 6 lumbar type vertebral bodies. The SI joints appear symmetric. XR/XR lumbar spine 2-3V IMPRESSION: Unremarkable
== END 2021-11-03 13:15 | disposition home or self-care (01) ==
LOC: HO.HMGCX 13:14
PROVIDERS: Visit Provider Internal Medicine
DX: S20.229A Contusion of unspecified back wall of thorax, initial encounter (principal)
CPT/HCPCS: 72100

== ENCOUNTER → 2021-11-05 09:39 | Outpatient (BNVA) | payer MEDICARE, MEDICAID, SELFPAY | PROVIDERS: PCP Physician Assistant; Visit Provider Urology | DX: E29.1 Testicular hypofunction (principal); N52.9 Male erectile dysfunction, unspecified; N31.9 Neuromuscular dysfunction of bladder, unspecified | CPT/HCPCS: Q3014 ==

== ENCOUNTER → 2021-12-14 10:58 | Day surgery (SDC) | payer MEDICARE, MEDICAID, SELFPAY ==
[2021-12-09 11:09] VITALS: BMI 26.4
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
[2021-12-14 11:57] LABS: Amphetamine Screen Urine POSITIVE (Not Detect); Barbiturates, Urine Not Detected (Not Detect); Benzodiazepines Screen Urine Not Detected (Not Detect); Cannabinoid Screen Urine POSITIVE (Not Detect); Cocaine Screen Urine Not Detected (Not Detect); Fentanyl, urine POSITIVE (Not Detect); Opiate Screen Urine POSITIVE (Not Detect); Phencyclidine Screen Urine Not Detected (Not Detect)
--- NOTE | 2021-12-14 12:11 | PC.NURSE ---
Procedure cancelled per anesthesia d/t positive utox fentanyl. Patient informed of cancellation by Dr Mckeon.
== END ==
PROVIDERS: Nurse Practitioner; PCP Internal Medicine; Visit Provider Urology
DX: N32.81 Overactive bladder (principal); Z53.8 Procedure and treatment not carried out for other reasons; G20 Parkinson's disease; Z87.820 Personal history of traumatic brain injury
CPT/HCPCS: 80307

== ENCOUNTER → 2022-01-15 13:35 | Outpatient (BNVA) | payer MEDICARE, MEDICAID, SELFPAY | PROVIDERS: PCP Nurse Practitioner Family; Visit Provider Urology | DX: N31.9 Neuromuscular dysfunction of bladder, unspecified (principal); N39.0 Urinary tract infection, site not specified; N52.9 Male erectile dysfunction, unspecified; E23.0 Hypopituitarism | CPT/HCPCS: Q3014 ==

== ENCOUNTER 2022-01-16 20:30 | Inpatient (IN) | payer MEDICARE, MEDICAID, SELFPAY ==
[2022-01-16 20:45] VITALS: BP 116/81; PULSE 83; RESP 17; TEMP 37.2; O2SAT 98; BMI 20.9
--- NOTE | 2022-01-16 20:55 | ED.PSYCH ---
HPI - Psych General Chief Complaint: Psychiatric Symptoms Stated Complaint: crisis eval Time Seen by Provider: 01/16/22 20:54 Source: patient and old records reviewed Limitations: no limitations History of Present Illness HPI Narrative: 31 yo male with hx of anoxic brain injury, mood disorder, overactive bladder, GERD, HTN, chronic pain, foot drop, anxiety, HTN, UTIs presents with insomnia and manic behaviors - he is already a bed search from community per N. This event triggers around his girlfriend breaking up with him. MD complaint: anxiety and other (manic, not sleeping) Onset (ago): week(s) (3) Duration: getting worse History of same: Yes Relieving factors: none Exacerbating factors: other Context: significant life stressor Associated psychiatric symptoms: depression and racing thoughts Associated symptoms: insomnia Treatments prior to arrival: none Related Data Home Medications Medication Instructions Recorded Confirmed carbidopa 25 mg-levodopa 250 mg 0.5 tab PO TID 03/27/20 01/16/22 tablet dextroamphetamine-amphetamine ER 1 cap PO QAM 04/24/20 01/16/22 20 mg 24hr capsule,extend release ziprasidone HCl 40 mg capsule 80 mg PO BID 04/07/21 01/16/22 clonazepam 1 mg tablet 1 mg PO TID PRN Sleep 07/15/21 01/16/22 lisinopril 10 mg tablet 20 mg PO DAILY 07/15/21 01/16/22 doxepin 10 mg capsule 10 mg PO BEDTIME 11/05/21 01/16/22 tizanidine 4 mg tablet 4 mg PO TID 11/05/21 01/16/22 Previous Rx's Medication Instructions Recorded methenamine hippurate 1 gram tablet 1 g PO DAILY 90 days #90 tabs 01/05/21 chorionic gonadotropin, human See Rx Instructions IM .COMPLEX 60 07/16/21 10,000 unit intramuscular solution days #2 ea omeprazole 20 mg capsule,delayed 40 mg PO DAILY #180 caps 07/29/21 release amlodipine 2.5 mg tablet 2.5 mg PO DAILY #90 tabs 12/23/21 gabapentin 300 mg capsule 300 mg PO TID 30 days #90 caps 12/25/21 Allergies Allergy/AdvReac Type Severity Reaction Status Date / Time No Known Allergies Allergy Verified 11/05/21 09:40 [No Known Allergies*] Review of Systems Review of Systems: Constitutional : No Fever, No Chills ENT/Mouth : No Ear Pain, No Nasal Congestion, No sore throat Eyes: No Eye Pain, No Swelling, No Redness Cardiovascular : No Chest Pain, No SOB Respiratory : No Cough, No Sputum, No Dyspnea Gastrointestinal : No Nausea, No Vomiting, No Diarrhea, No Hematochezia, No Melena Genitourinary : No Dysuria, No Urinary Frequency, No Hematuria Musculoskeletal : No Myalgias Skin : No Skin Lesions, No rash Neuro : No Weakness, No Numbness, No Paresthesias, No Dizziness, No Headache Psych : positive Anxiety, positive Depression, no SI/HI, pos insomnia Heme/Lymph: No Lymphadenopathy Endocrine : No Polyuria, No Polydipsia All other systems reviewed and are negative [facility] Past Medical History Attestation statement: The following information was validated with the patient. Medical History Anoxia of brain Anxiety Ataxia Bipolar 1 disorder BPH (benign prostatic hyperplasia) Hx of traumatic brain injury OAB (overactive bladder) Obstructive sleep apnea OCD (obsessive compulsive disorder) Overactive bladder Parkinsonism PSP (progressive supranuclear palsy) Self-catheterizes urinary bladder Spasticity Surgical History History of esophagogastroduodenoscopy (EGD) Hx of cystoscopy Family History Family History Father Cancer Mother No problems noted. Social History Social History Housing: House Alcohol intake: never Patient Tobacco Use Status: Current everyday Tobacco user Cigarettes Per Day: 10 Years Smoked: 7 e-Cigarette/Vaping Use: Currently Using Second Hand Smoke Exposure: Yes Advance Directives: No service: No Current occupational status: disabled Physical Exam Vital Signs: Vital Signs: Last Vital Signs Temp 98.9 F 01/16/22 20:45 Pulse 83 01/16/22 20:45 Resp 17 01/16/22 20:45 BP 116/81 01/16/22 20:45 Pulse Ox 98 01/16/22 20:45 O2 Del Method 01/16/22 20:45 BMI result Body Mass Index 20.9 Appearance: Alert. Oriented X3. No acute distress. Eyes: Pupils equal, round and reactive to light. 4mm ENT: Pharynx normal. Neck: Normal inspection. Neck supple. CVS: Normal heart rate and rhythm. Pulses normal. Respiratory: No respiratory distress. Breath sounds normal. Abdomen: Soft and nontender. Skin: Skin warm and dry. Normal skin color. Normal skin turgor. Extremities: No lower extremity edema. No calf ttp L foot great toe old contusion to nail thickened no signs of infection - susepct it is going to fall off Neuro: Oriented X 3. No motor deficit. No sensory deficit. CN2-12 intact Course Course Course Narrative: Physician observation started at 947pm Patient placed in physician observation because the patient needed more time for BHN to assess the need for psych admission. At the time observation was started the patient's vitals were stable, patient is alert and oriented but slightly anxious, Neuro: nonfocal, CV RRR, Lungs clear MDM - Psych MDM Narrative Medical decision making narrative: 31 yo male with hx of anoxic brain injury, mood disorder, overactive bladder, GERD, HTN, chronic pain, foot drop, anxiety, HTN, UTIs presents with insomnia and concern for manic behaviors already a bed search - at this time will obtain labs and start back on medications. He denies overuse of his medications that would cause insomnia. Dispo per crisis input and placement. Lab Data Result diagrams: 01/16/22 21:35 01/16/22 21:35 Labs: Lab Results 01/16/22 01/16/22 01/16/22 Range/Units 21:14 21:14 21:14 WBC (4.8-10.8) X10*3/uL RBC (4.60-5.80) X10*6/uL Hgb (14.0-18.0) g/dl Hct (42.0-52.0) % MCV (80.0-98.0) fL MCH (27.0-33.0) pg MCHC (31.0-36.0) g/dl RDW (11.0-16.0) % Plt Count (160-400) X10*3/uL MPV (9.4-12.4) fL Immature Gran % (Auto) (0.0-0.4) % Neut % (Auto) (45-73) % Lymph % (Auto) (20-40) % [place] % (Auto) (2-11) % Eos % (Auto) (0-4) % Baso % (Auto) (0-2) % Lymph # (Auto) (1.2-4.9) X10*3/uL [place] # (Auto) (0.1-1.2) X10*3/uL Eos # (Auto) (0.0-0.4) X10*3/uL Baso # (Auto) (0.0-0.2) X10*3/uL Abs Immat Gran (auto) (0.00-0.03) X10*3/uL Absolute Neuts (auto) (2.0-8.3) x10*3/uL Absolute Nucleated RBC (0.0-0.012) X10*3/uL Nucleated RBC % (auto) (0.0-0.2) /100WBC Urine Color Yellow Urine Appearance Clear Urine pH 6.0 (5.0-9.0) Ur Specific [place] <= 1.005 (1.005-1.025) Urine Protein Negative (Neg-Trace) mg/dL Urine Glucose (UA) Negative (Negative) mg/dL Urine Ketones Negative (Negative) mg/dL Urine Blood Negative (Negative) Urine Nitrite Negative (Negative) Ur Leukocyte Esterase Negative (Negative) Urine Opiates Screen Not Detected (Not Detect) Urine Fentanyl Screen POSITIVE H (Not Detect) Ur Barbiturates Screen Not Detected (Not Detect) Ur Phencyclidine Scrn Not Detected (Not Detect) Ur Amphetamines Screen Not Detected (Not Detect) U Benzodiazepines Scrn Not Detected (Not Detect) Urine Cocaine Screen Not Detected (Not Detect) U Marijuana (THC) Screen POSITIVE H (Not Detect) COVID-19 (GRADY) Negative (Negative) COVID-19 Clin Com See Note 01/16/22 Range/Units 21:35 WBC 12.1 H (4.8-10.8) X10*3/uL RBC 5.48 D (4.60-5.80) X10*6/uL Hgb 15.0 D (14.0-18.0) g/dl Hct 44.9 D (42.0-52.0) % MCV 81.9 (80.0-98.0) fL MCH 27.4 (27.0-33.0) pg MCHC 33.4 (31.0-36.0) g/dl RDW 13.5 (11.0-16.0) % Plt Count 322 (160-400) X10*3/uL MPV 9.6 (9.4-12.4) fL Immature Gran % (Auto) 0.5 H (0.0-0.4) % Neut % (Auto) 62.2 (45-73) % Lymph % (Auto) 28.5 (20-40) % [place] % (Auto) 6.2 (2-11) % Eos % (Auto) 2.2 (0-4) % Baso % (Auto) 0.4 (0-2) % Lymph # (Auto) 3.5 (1.2-4.9) X10*3/uL [place] # (Auto) 0.8 (0.1-1.2) X10*3/uL Eos # (Auto) 0.3 (0.0-0.4) X10*3/uL Baso # (Auto) 0.1 (0.0-0.2) X10*3/uL Abs Immat Gran (auto) 0.06 H (0.00-0.03) X10*3/uL Absolute Neuts (auto) 7.5 (2.0-8.3) x10*3/uL Absolute Nucleated RBC 0.000 (0.0-0.012) X10*3/uL Nucleated RBC % (auto) 0.0 (0.0-0.2) /100WBC Urine Color Urine Appearance Urine pH (5.0-9.0) Ur Specific [place] (1.005-1.025) Urine Protein (Neg-Trace) mg/dL Urine Glucose (UA) (Negative) mg/dL Urine Ketones (Negative) mg/dL Urine Blood (Negative) Urine Nitrite (Negative) Ur Leukocyte Esterase (Negative) Urine Opiates Screen (Not Detect) Urine Fentanyl Screen (Not Detect) Ur Barbiturates Screen (Not Detect) Ur Phencyclidine Scrn (Not Detect) Ur Amphetamines Screen (Not Detect) U Benzodiazepines Scrn (Not Detect) Urine Cocaine Screen (Not Detect) U Marijuana (THC) Screen (Not Detect) COVID-19 ([facility]AD[facility]) (Negative) COVID-19 Clin Com Discharge Plan Discharge Clinical Impression: Mood disorder Insomnia Qualifiers: Insomnia type: adjustment Qualified Code(s): F51.02 - Adjustment insomnia Patient Disposition: Still a Patient Prescriptions: No Action methenamine hippurate 1 gram tablet 1 g PO DAILY 90 Days Qty: 90 3RF chorionic gonadotropin, human 10,000 unit recon soln See Rx Instructions IM .COMPLEX 60 Days Qty: 2 2RF Rx Instructions: - 0.5cc IM 2 x a week; dilute in 5 ml NS - injection should be 1000 units per injection omeprazole 20 mg capsule,delayed release(DR/EC) 40 mg PO DAILY Qty: 180 1RF amlodipine 2.5 mg tablet 2.5 mg PO DAILY Qty: 90 0RF gabapentin 300 mg capsule 300 mg PO TID 30 Days Qty: 90 1RF carbidopa-levodopa 25-250 mg tablet 0.5 tab PO TID ziprasidone HCl 40 mg capsule 80 mg PO BID Rx Instructions: 40 am and 60 pm dextroamphetamine-amphetamine 20 mg capsule,extended release 24hr 1 cap PO QAM clonazepam 1 mg tablet 1 mg PO TID PRN (Reason: Sleep) lisinopril 10 mg tablet 20 mg PO DAILY tizanidine 4 mg tablet 4 mg PO TID doxepin 10 mg capsule 10 mg PO BEDTIME
[2022-01-16 21:21] LABS: Appearance Urine Clear; Color Urine Yellow; Glucose Urine UA Negative (Negative); Leukocyte Esterase Urine Negative (Negative); Nitrite Urine Negative (Negative); Specific Gravity - Urine <= 1.005 (1.005-1.025); Urine Blood Negative (Negative); Urine Ketones Negative (Negative); Urine Protein Negative (Neg-Trace)
[2022-01-16 21:35] LABS: Amphetamine Screen Urine Not Detected (Not Detect); Barbiturates, Urine Not Detected (Not Detect); Benzodiazepines Screen Urine Not Detected (Not Detect); Cannabinoid Screen Urine POSITIVE (Not Detect); Cocaine Screen Urine Not Detected (Not Detect); Fentanyl, urine POSITIVE (Not Detect); Opiate Screen Urine Not Detected (Not Detect); Phencyclidine Screen Urine Not Detected (Not Detect)
--- OUTSIDE RECORDS SUMMARY | 2022-01-16 21:35 | XMS_ITS | Continuity of Care Document ---
:1990 Author Organization [facility] Address [address] [place] [address]- Care Team Providers Name Role Phone Not on Staff, PCP Primary Care Physician Unavailable Encounter [facility] Date(s): 12/29/21 - 12/30/[address] [address]- Encounter Diagnosis Behavior concern (Final) - 12/29/21 Discharge Disposition: A-D/C Home Attending Physician: Shanthi Brooke MD Admitting Physician: Shanthi Brooke MD Referring Physician: Not on Staff, Referring MD Allergies, Adverse Reactions, Alerts No Known Allergies Immunizations Given and Recorded Vaccine Date Status Refusal Reason pneumococcal 23-valent vaccine 07/16/16 Given pneumococcal 23-valent vaccine 01/28/13 Given tetanus/diphtheria/pertussis, acel(Tdap) 06/13/14 Given influenza virus vaccine, inactivated 01/28/13 Given Medications amLODIPine 2.5 mg oral tablet 1 tablet = 2.5 mg, By Mouth, Daily, Maintenance, 12/29/21 19:39:00 EDT, Tablet, Partial fill upon patient request if the prescription is for a schedule II opioid drug. Start Date: 12/29/21 Status: Orderedamphetamine-dextroamphetamine 20 mg oral capsule, extended release 1 capsule = 20 mg, By Mouth, Daily in AM, 0 Refills, Maintenance, 12/29/21 19:47:00 EDT, CR Capsule,Partial fill upon patient request if the prescription is for a schedule II opioid drug. Start Date: 12/29/21 Status: Orderedbaclofen 10 mg oral tablet 20 mg, Tablet, By Mouth, 12/30/21 15:00:00 EDT Start Date: 12/30/21 Stop Date: 12/30/21 Status: Completedbaclofen 20 mg oral tablet 20 mg, 1, tablet, By Mouth, 3 times a day, Maintenance, 12/29/21 19:41:00 EDT, Partial fill upon patient request if the prescription is for a schedule II opioid drug. Start Date: 12/29/21 Status: Orderedcarbidopa-levodopa 25 mg-250 mg oral tablet 1 tablet, By Mouth, 3 times a day, Maintenance, 12/29/21 19:42:00 EDT, Tablet, Partial fill upon patient request if the prescription is for a schedule II opioid drug. Start Date: 12/29/21 Status: Orderedchorionic gonadotropin (HCG) 21753 u injectable powder for injection = 10,000 units, Intramuscular, Once, Maintenance, 12/29/21 19:57:00 EDT, Powder, Partial fill upon patient request if the prescription is for a schedule II opioid drug. Start Date: 12/29/21 Status: OrderedclonazePAM 1 mg oral tablet 1 tablet = 1 mg, By Mouth, 3 times a day, Maintenance, 12/29/21 19:48:00 EDT, Tablet, Partial fill upon patient request if the prescription is for a schedule II opioid drug. Start Date: 12/29/21 Status: Orderedcyclobenzaprine 5 mg oral tablet 1 tablet = 5 mg, By Mouth, Daily at bedtime, PRN as needed Start Date: 12/29/21 Status: Ordereddoxepin 10 mg oral capsule 1 capsule = 10 mg, By Mouth, Daily at bedtime, PRN as needed, Maintenance, 12/29/21 19:44:00 EDT, Partial fill upon patient request if the prescription is for a schedule II opioid drug. Start Date: 12/29/21 Status: Orderedgabapentin 300 mg oral capsule 300 mg, 1, capsule, By Mouth, Daily Start Date: 12/29/21 Status: Orderedlactulose 10 gm/15 ml oral syrup 15 mL = 10 Gm, By Mouth, Daily, Maintenance, 12/29/21 19:45:00 EDT, Syrup, Partial fill upon patientrequest if the prescription is for a schedule II opioid drug. Start Date: 12/29/21 Status: Orderedlamotrigine 200 mg oral tablet 1 tablet = 200 mg, By Mouth, Daily, 0 Refills, Maintenance, 12/29/21 19:52:00 EDT, Partial fill uponpatient request if the prescription is for a schedule II opioid drug. Start Date: 12/29/21 Status: Orderedlisinopril 20 mg oral tablet 20 mg, 1, tablet, By Mouth, Daily, Maintenance, 12/29/21 19:43:00 EDT, Partial fill upon patient request if the prescription is for a schedule II opioid drug. Start Date: 12/29/21 Status: Orderedmethenamine hippurate 1 gm oral tablet 1 tablet = 1 Gm, By Mouth, Daily Start Date: 12/29/21 Status: OrderedMyrbetriq 50 mg oral tablet, extended release 1 tablet = 50 mg, By Mouth, Daily, do not crush or chew, Maintenance, 12/29/21 19:44:00 EDT, ER Tablet, Partial fill upon patient request if the prescription is for a schedule II opioid drug. Start Date: 12/29/21 Status: Orderedomeprazole 20 mg oral enteric coated capsule 1 capsule = 20 mg, By Mouth, 2 times a day, before a meal, Maintenance, 12/29/21 19:40:00 EDT, EC Capsule, Partial fill upon patient request if the prescription is for a schedule II opioid drug. Start Date: 12/29/21 Status: Orderedsildenafil 100 mg oral tablet 1 tablet = 100 mg, By Mouth, Daily, NEEDED FOR ERECTILE DYSFUNCTION Start Date: 12/29/21 Status: OrderedtiZANidine 4 mg oral tablet 4 mg, 1, tablet, By Mouth, Every 8 hours, Maintenance, 12/29/21 19:46:00 EDT, Partial fill upon patient request if the prescription is for a schedule II opioid drug. Start Date: 12/29/21 Status: Orderedziprasidone 40 mg oral capsule 1 capsule = 40 mg, By Mouth, Daily in AM Start Date: 12/29/21 Status: Orderedziprasidone 80 mg oral capsule 1 capsule = 80 mg, By Mouth, Daily at bedtime, Maintenance, 12/29/21 19:49:00 EDT, Partial fill uponpatient request if the prescription is for a schedule II opioid drug. Start Date: 12/29/21 Status: Ordered Vital Signs Most recent to oldest 1 2 3 [Reference Range]: Height 180 cm 180 cm 180 cm (12/30/21 8:34 PM) (12/30/21 5:35 AM) (12/29/21 12:01 PM) Weight 69.9 kg 69.9 kg 69.9 kg (12/30/21 8:34 PM) (12/30/21 8:33 AM) (12/30/21 5:35 AM) Oxygen Saturation [94-100 99 % 100 % 99 % %] (12/30/21 8:34 PM) (12/30/21 5:53 PM) (12/30/21 12:48 PM) Pulse Rate [55-90 bpm] 67 bpm 64 bpm 70 bpm (12/30/21 8:34 PM) (12/30/21 5:53 PM) (12/30/21 12:48 PM) Body Mass Index 21.57 kg/m2 21.57 kg/m2 [18.5-24.99 kg/m2] (12/30/21 5:35 AM) (12/29/21 11:53 AM) Blood Pressure 126/71 mm Hg 139/77 mm Hg 123/69 mm Hg [90-138/55-84 mm Hg] (12/30/21 8:34 PM) *H* ( 2 12:48 PM) (12/30/21 5:53 PM) Respiratory Rate [16-30 18 br/min 20 br/min 20 br/mi n br/min] (12/30/21 8:34 PM) (12/30/21 5:53 PM) (12/30/21 3:06 PM) Temperature [96.8-100.4 97.8 DegF 97.7 DegF 98.1 Deg F DegF] (12/30/21 8:34 PM) (12/30/21 5:53 PM) (12/30/21 12:48 PM) Mode of Delivery (Oxygen) Room air Room air Room a ir (12/30/21 8:34 PM) (12/30/21 5:53 PM) (12/30/21 12:48 PM) Blood pressure sites Arm, right Arm, right Arm, left (12/30/21 8:34 PM) (12/29/21 7:49 PM) (12/29/21 4:13 PM) Temperature Route Oral Oral Oral (12/30/21 8:34 PM) (12/30/21 5:53 PM) (12/30/21 12:48 PM) Dry Weight 69.9 kg 69.9 kg 69.9 kg (12/30/21 8:34 PM) (12/30/21 5:35 AM) (12/29/21 12:01 PM) Weight Obtained Via Standing scale (12/29/21 11:53 AM) Dry Weight Obtained Via Standing scale (12/29/21 11:53 AM) Social History Social History Type Response Smoking Status Current every day smoker; Ty pe: Cigarettes entered on: 07/27/16 Sex Patient Care team information PersonnelName: Not on Staff, PCP
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
[2022-01-16 21:38] LABS: COVID-19 Test Negative (Negative); IDNOW Serial# 55D5AD1C
[2022-01-16 21:43] LABS: MANUAL DIFF FLAG NO
[2022-01-16 21:45] LABS: Basophils Absolute Auto 0.1 X10*3/uL (0.0-0.2); Basophils Percent Auto 0.4 % (0-2); Eosinophils Absolute Auto 0.3 X10*3/uL (0.0-0.4); Eosinophils Percent Auto 2.2 % (0-4); Hematocrit 44.9 % (42.0-52.0); Imm Gran Abs Auto 0.06 X10*3/uL (0.00-0.03); Imm Gran Pct Auto 0.5 % (0.0-0.4); Lymphocytes Absolute Auto 3.5 X10*3/uL (1.2-4.9); Lymphocytes Percent Auto 28.5 % (20-40); Mean Corpuscular HGB Conc 33.4 g/dl (31.0-36.0); Mean Corpuscular Hemoglobin 27.4 pg (27.0-33.0); Mean Corpuscular Volume 81.9 fL (80.0-98.0); Mean Platelet Volume 9.6 fL (9.4-12.4); Monocytes Absolute Auto 0.8 X10*3/uL (0.1-1.2); Monocytes Percent Auto 6.2 % (2-11); Neutrophils Absolute Auto 7.5 x10*3/uL (2.0-8.3); Neutrophils Percent Auto 62.2 % (45-73); Platelet Count 322 X10*3/uL (160-400); Red Blood Count 5.48 X10*6/uL (4.60-5.80); Red Cell Distribution Width 13.5 % (11.0-16.0); White Blood Count 12.1 X10*3/uL (4.8-10.8)
[2022-01-16] MEDS: Gabapentin 300 MG CAPSULE PO (21:58)
[2022-01-16] MEDS: clonazePAM 1 MG TABLET PO (21:58)
[2022-01-16] MEDS: Nicotine 21 MG PATCH.TD24 TRANSDERMA (21:58)
[2022-01-16] MEDS: TiZANidine HCL 4 MG TABLET PO (21:58)
[2022-01-16 22:04] LABS: Ethanol 20 mg/dL
[2022-01-16 22:08] LABS: Alanine Aminotransferase 8 U/L (0-40); Albumin Level 4.8 g/dL (3.5-5.0); Alkaline Phosphatase 81 U/L (39-117); Anion Gap 18 (12-20); Aspartate Amino Transferase 16 U/L (5-37); Bilirubin Direct 0.2 mg/dL (0.0-0.5); Bilirubin Total 0.6 mg/dL (0.0-1.0); Blood Urea Nitrogen 9 mg/dL (9-16); Calcium 9.7 mg/dL (8.4-10.2); Carbon Dioxide 25 mmol/L (22-29); Chloride 104 mmol/L (96-108); Creatinine Clr Calc Pharmacy 142.4; Estimated Glomerular Filt Rate > 60; Glucose Random 83 mg/dL (60-115); Magnesium 2.1 mg/dL (1.6-2.6); Potassium 3.9 mmol/L (3.3-5.1); Sodium 143 mmol/L (135-145); Total Protein 7.4 g/dL (6.5-8.0)
[2022-01-16] MEDS: Doxepin HCl 10 MG CAPSULE PO (22:37)
[2022-01-16] MEDS: Carbidopa/Levodopa 25/250 TABLET 0.5 TAB PO (22:38)
[2022-01-16] MEDS: Ziprasidone 80 MG CAPSULE PO (22:38)
[2022-01-16 23:14] VITALS: BP 112/64; PULSE 78; RESP 17; TEMP 37.1; O2SAT 96
--- NOTE | 2022-01-17 06:45 | PC.NURSE ---
Patient slept through the night, no distress observed/reported, behavior non concerning, medication compliant, disposition per [facility] is voluntary inpatient bed search, VSS, will continue to monitor.
[2022-01-17] MEDS: Omeprazole 40 MG CAPSULE.DR PO (06:48)
[2022-01-17] MEDS: Nicotine Polacrilex 2 MG GUM BUCCAL ×5 (06:48→20:58)
--- NOTE | 2022-01-17 07:22 | PC.NURSE ---
patient appears to remain asleep at present respirations are even and unlabored patient appears in no distress.
[2022-01-17 08:57] VITALS: BP 117/62; PULSE 68; RESP 15; TEMP 36.9; O2SAT 97
[2022-01-17] MEDS: Ziprasidone 80 MG CAPSULE PO ×3 (08:58→19:48)
[2022-01-17] MEDS: Dextroamphetamine/Amphetamine XR 10 MG CAP.ER.24H 20 MG PO (08:58)
[2022-01-17] MEDS: Carbidopa/Levodopa 25/250 TABLET 0.5 TAB PO ×3 (08:58→19:43)
[2022-01-17] MEDS: Gabapentin 300 MG CAPSULE PO ×3 (08:58→19:48)
[2022-01-17] MEDS: TiZANidine HCL 4 MG TABLET PO ×3 (08:59→19:58)
[2022-01-17] MEDS: amLODIPine Besylate 2.5 MG TABLET PO (08:59)
[2022-01-17] MEDS: lisinopriL 20 MG TABLET PO (08:59)
[2022-01-17] MEDS: clonazePAM 1 MG TABLET PO ×2 (09:10→14:32)
--- NOTE | 2022-01-17 10:53 | PC.NURSE ---
patient has specific inquiries and seems apprehensive about meds as well. asked about baclofen, thinking he would dies without it. t/w informed him still on MUSCLE RELAXER,
[2022-01-17 16:24] VITALS: BP 110/76; PULSE 96; RESP 16; TEMP 36.4; O2SAT 99
[2022-01-17] MEDS: Mirabegron 50 MG TAB.ER.24H PO (17:39)
--- NOTE | 2022-01-17 17:41 | PC.NURSE ---
MED REC COMPLETED FOR PT, MOTHER PROVIDED BOTTLES OF QUVIVIRQ AND METHENAMINE FROM HOME. MEDS DELIVERED TO PHARMACY FOR DISPENSING.
[2022-01-17] MEDS: Acetaminophen 325 MG TABLET 650 MG PO (18:26)
[2022-01-17] MEDS: Doxepin HCl 10 MG CAPSULE PO (19:43)
[2022-01-18 05:12] VITALS: BP 110/61; PULSE 62; RESP 16; TEMP 36.6; O2SAT 98
[2022-01-18] MEDS: clonazePAM 1 MG TABLET PO ×3 (05:17→20:04)
[2022-01-18] MEDS: Omeprazole 40 MG CAPSULE.DR PO (05:18)
--- NOTE | 2022-01-18 05:19 | PC.NURSE ---
Patient slept through the night, no distress observed/reported, behavior non concerning, medication compliant, klonopin 1 mg administered at 0517 for anxiety, pending effect, disposition per [facility] is voluntary inpatient bed search, no update on bed search, VSS, will continue to monitor.
[2022-01-18] MEDS: Nicotine Polacrilex 2 MG GUM BUCCAL ×5 (07:09→16:37)
[2022-01-18] MEDS: TiZANidine HCL 4 MG TABLET PO ×3 (08:36→20:03)
[2022-01-18] MEDS: amLODIPine Besylate 2.5 MG TABLET PO (08:36)
[2022-01-18] MEDS: Gabapentin 300 MG CAPSULE PO ×3 (08:36→20:04)
[2022-01-18] MEDS: lisinopriL 20 MG TABLET PO (08:37)
[2022-01-18] MEDS: Carbidopa/Levodopa 25/250 TABLET 0.5 TAB PO ×3 (08:54→20:02)
[2022-01-18] MEDS: Dextroamphetamine/Amphetamine XR 10 MG CAP.ER.24H 20 MG PO (08:54)
[2022-01-18] MEDS: Mirabegron 50 MG TAB.ER.24H PO (08:54)
[2022-01-18] MEDS: Lactulose 20 GM/30 ML SOLUTION 10 GM PO (10:12)
--- NOTE | 2022-01-18 11:45 | PC.NURSE ---
patient medicated per order
--- NOTE | 2022-01-18 12:16 | PC.NURSE ---
pt states that he is unable to urinate and self-caths at home, this nurse contacted the provider who stated he can self cath as it is listed in his history, this nurse has sent a tech to grab self cath kits for the patient to self cath.
--- NOTE | 2022-01-18 12:27 | ECG_ITS ---
Test Reason : MED CLEARANCE Blood Pressure : / mmHG Vent. Rate : 089 BPM Atrial Rate : 089 BPM P-R Int : 126 ms QRS Dur : 082 ms QT Int : 334 ms P-R-T Axes : 071 028 051 degrees QTc Int : 406 ms Normal sinus rhythm Right atrial enlargement Borderline ECG When compared with ECG of 06-AUG-2013 14:10, Heart rate has increased Referred By: Kimberlee Cummins Electronically Signed By:DANY YATES MD
--- NOTE | 2022-01-18 12:30 | PC.NURSE ---
pt self cath for large amt of urine per pt.
[2022-01-18] MEDS: Acetaminophen 325 MG TABLET 650 MG PO (12:41)
[2022-01-18 13:16] VITALS: BP 122/65; PULSE 92; RESP 16; TEMP 37.3; O2SAT 98
--- NOTE | 2022-01-18 13:45 | PC.NURSE ---
bhn at bedside, pt aware of plan of care.
--- NOTE | 2022-01-18 15:18 | PC.NURSE ---
assumed care of pt at 1500, medicated pt per provider order, pt reporting 8/10 leg pain - chronic, pt reports that he was supposed to go to pain management this week.
--- NOTE | 2022-01-18 15:46 | PC.NURSE ---
Pt seen this day for individual OT tx. Pt presents with notable anxiety with manic type speech however agreeable and pleasant wile talking to this chief writer. He is receptive to sensory item as well as journal with focus on fostering heathy coping strategies and stress reduction.
[2022-01-18 17:09] VITALS: BP 122/75; PULSE 102; RESP 16; TEMP 36.5; O2SAT 99; BMI 20.9
[2022-01-18 18:00] VITALS: BP 118/68; PULSE 78; RESP 16; TEMP 36.6; O2SAT 98
[2022-01-18] MEDS: Doxepin HCl 10 MG CAPSULE PO (20:04)
[2022-01-18] MEDS: HaloperidoL 5 MG TABLET PO (20:04)
[2022-01-18] MEDS: Ziprasidone 80 MG CAPSULE PO (20:04)
[2022-01-18] MEDS: Nicotine Polacrilex Lozenge 2 MG LOZENGE BUCCAL (21:20)
--- NOTE | 2022-01-18 23:17 | PC.ADMIT ---
Pt is a 31 year old male admitted on CV for increased anxiety and increased radha. Pt is alert and oriented X4, Covid negative, Tox positive for THC and fentanyl. Pt reports he wants medication evaluation to stabilize his sleep, Pt reports increased insomnia which has been going on for 18days. Speech is regular with normal tone, rate and rhythm. Pt C/O that non of his medications work. Pt reports vomiting after meal making it difficult for him to keep food down. Pt reports loosing about 20lb within weeks for sleep deprivation dietary issues. Pt denies SI/HI at this time, reports increased radha and requested Haldol to help him sleep. Pt presents as dishevelled with flat affect. Pt is able to seek help. Admission orders obtained.
[2022-01-19] MEDS: Omeprazole 40 MG CAPSULE.DR PO (06:13)
[2022-01-19 08:00] VITALS: BP 124/66; PULSE 70; RESP 18; TEMP 36.6; O2SAT 98
[2022-01-19] MEDS: lisinopriL 20 MG TABLET PO (08:41)
[2022-01-19] MEDS: Ziprasidone 80 MG CAPSULE PO ×2 (08:41→20:14)
[2022-01-19] MEDS: TiZANidine HCL 4 MG TABLET PO ×3 (08:42→20:16)
[2022-01-19] MEDS: Nicotine Polacrilex Lozenge 2 MG LOZENGE BUCCAL ×5 (08:42→17:07)
[2022-01-19] MEDS: Carbidopa/Levodopa 25/250 TABLET 0.5 TAB PO ×3 (08:43→20:14)
[2022-01-19] MEDS: amLODIPine Besylate 2.5 MG TABLET PO (08:45)
[2022-01-19] MEDS: Gabapentin 300 MG CAPSULE PO ×3 (08:45→20:16)
[2022-01-19] MEDS: Mirabegron 50 MG TAB.ER.24H PO (08:46)
[2022-01-19] MEDS: clonazePAM 1 MG TABLET PO ×2 (09:05→17:07)
[2022-01-19] MEDS: Lactulose 20 GM/30 ML SOLUTION 10 GM PO (09:18)
[2022-01-19 09:32] LABS: Estimated Average Glucose 105 mg/dL; Hemoglobin A1c % 5.3 %
[2022-01-19 09:36] LABS: Cholesterol 134 mg/dL; HDL Cholesterol 42 mg/dL; LDL Cholesterol Calculated 79 mg/dl; Triglycerides 66 mg/dL
[2022-01-19 09:58] LABS: Free T4 (Free Thyroxine) 0.97 ng/dL (0.71-1.85); Thyroid Stimulating Hormone 1.87 uIU/mL (0.32-4.0)
[2022-01-19 10:40] LABS: Folate 6.5 ng/mL (> or = 4.0); Vitamin B12 291 pg/mL (200-900)
[2022-01-19] MEDS: Dextroamphetamine/Amphetamine XR 10 MG CAP.ER.24H 20 MG PO (12:31)
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
[2022-01-19 18:00] VITALS: BP 127/69; PULSE 101; RESP 16; TEMP 36.6; O2SAT 100
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
[2022-01-19] MEDS: Nicotine Polacrilex Lozenge 4 MG LOZENGE BUCCAL ×2 (18:47→20:14)
--- NOTE | 2022-01-19 18:59 | PC.NURSE ---
Pt submitted a Three-Day Notice on TuesdayJanuary 19 up on TuesdayJanuary 22.
[2022-01-19] MEDS: Divalproex Sodium ER 250 MG TAB.ER.24H PO (20:17)
[2022-01-19] MEDS: HaloperidoL 5 MG TABLET PO (20:17)
[2022-01-19] MEDS: chlorproMAZINE HCl 25 MG TABLET 50 MG PO (20:18)
[2022-01-19] MEDS: Magnesium Hydrox/Alum Hydrox 30 ML ORAL.SUSP PO (20:47)
[2022-01-20] MEDS: Omeprazole 40 MG CAPSULE.DR PO (05:34)
[2022-01-20] MEDS: Carbidopa/Levodopa 25/250 TABLET 0.5 TAB PO ×3 (08:46→20:34)
[2022-01-20] MEDS: Ziprasidone 80 MG CAPSULE PO ×2 (08:46→20:33)
[2022-01-20] MEDS: TiZANidine HCL 4 MG TABLET PO ×3 (08:47→20:39)
[2022-01-20] MEDS: Mirabegron 50 MG TAB.ER.24H PO (08:47)
[2022-01-20] MEDS: lisinopriL 20 MG TABLET PO (08:47)
[2022-01-20] MEDS: Lactulose 20 GM/30 ML SOLUTION 10 GM PO (08:48)
[2022-01-20] MEDS: amLODIPine Besylate 2.5 MG TABLET PO (08:48)
[2022-01-20] MEDS: Dextroamphetamine/Amphetamine XR 10 MG CAP.ER.24H 20 MG PO (08:48)
[2022-01-20] MEDS: Gabapentin 300 MG CAPSULE PO ×3 (08:48→20:39)
[2022-01-20] MEDS: clonazePAM 1 MG TABLET PO ×2 (08:49→12:15)
[2022-01-20] MEDS: Nicotine Polacrilex Lozenge 4 MG LOZENGE BUCCAL ×4 (09:10→21:33)
[2022-01-20 09:45] VITALS: BP 134/68; PULSE 69; RESP 15; TEMP 36.1; O2SAT 99
--- NOTE | 2022-01-20 11:16 | HO.PSYCHPN ---
Subjective Subjective Date of Service: 01/20/22 Reason For Visit: radha, insomnia, anoxic brain injury hx Subjective Notes: Conditional Voluntary Healthcare Proxy: No Guardianship: No Medical Problems Affecting Mental Status: No Interim History: Reports he slept for four hours on 250 mg Depakote, and Doxepin hold. Asks to increase dose. Will trial 500 mg tonight. Discussed risks with hx of bleeding with pt. He reports he is pleased with results ?insomnia related to hypomania-not feeling overmedicated, relaxed really . Can I leave? Discussion Medication Compliance: Yes Side effects from medications: No Attending Groups: Intermittent Review of Systems Acute medical concerns: No Ordered Chorionic gonadotropin from [place]. Medical Review of Systems: unchanged Mental Status Exam Mental Status Exam Patient Appearance: Appropriate Patient Orientation: Person, Place, Time and Situation Level of Consciousness: Alert Patient Behavior: Appropriate, Talkative, Cooperative and Good Eye Contact Mood Description: Anxious and Apprehensive Affect Description: Flat and Apprehensive Patient Cognition Impaired: No Ability to Follow Directions: Good Speech Pattern: Spontaneous Speech Memory Description: Episodic Impaired Hallucinations: None Thought Process: Intact and Goal Oriented Thought Content: positive for Intact and positive for Goal Oriented Depressive Symptoms: Increased Anxiety Judgement: Fair Diagnostics Vital Signs (24Hr): Vital Signs - 24 hr 01/19/22 18:00 01/20/22 09:45 Temperature 97.8 F 97.0 F Pulse Rate 101 H 69 Respiratory Rate 16 15 Blood Pressure 127/69 134/68 Pulse Oximetry 100 99 Oxygen Delivery Method Room Air Room Air BMI result Body Mass Index 20.9 Labs Results: 01/16/22 21:35 01/16/22 21:35 Labs: Laboratory Results - last 48 hr 01/19/22 01/19/22 01/19/22 08:12 08:12 08:12 Estimat Average Glucose 105 Hemoglobin A1c % 5.3 Magnesium 2.0 Triglycerides 66 Cholesterol 134 LDL Cholesterol, Calc 79 HDL Cholesterol 42 Vitamin B12 291 Folate 6.5 TSH 1.87 Free T4 0.97 Medications Medications Current Medications Acetaminophen (Acetaminophen 325 Mg Tablet) 650 mg PO Q6H PRN PRN Reason: Headache/Pain Mild Scale (1-3) Al Hydroxide/Mg Hydroxide (Magnesium Hydrox/Alum Hydrox 30 Ml Oral.Susp) 30 ml PO Q6H PRN PRN Reason: Heartburn/Nausea Last Admin: 01/19/22 20:47 Dose: 30 ml Amlodipine Besylate (Amlodipine Besylate 2.5 Mg Tablet) 2.5 mg PO DAILY [facility]; Protocol Last Admin: 01/20/22 08:48 Dose: 2.5 mg Amphetamine/Dextroamphetamine (Dextroamphetamine/Amphetamine Xr 10 Mg Cap.Er.24h) 20 mg PO DAILY [facility] Last Admin: 01/18/22 08:54 Dose: 20 mg Amphetamine/Dextroamphetamine (Dextroamphetamine/Amphetamine Xr 10 Mg Cap.Er.24h) 20 mg PO DAILY [facility] Last Admin: 01/20/22 08:48 Dose: 20 mg Carbidopa/Levodopa (Carbidopa/Levodopa 25/250 Tablet) 0.5 tab PO TID [facility] Last Admin: 01/20/22 08:46 Dose: 0.5 tab Clonazepam (Clonazepam 1 Mg Tablet) 1 mg PO TID PRN PRN Reason: Sleep Last Admin: 01/20/22 08:49 Dose: 1 mg Divalproex Sodium (Divalproex Sodium Er 250 Mg Tab.Er.24h) 250 mg PO BEDTIME [facility] Last Admin: 01/19/22 20:17 Dose: 250 mg Gabapentin (Gabapentin 300 Mg Capsule) 300 mg PO TID [facility] Last Admin: 01/20/22 08:48 Dose: 300 mg Haloperidol (Haloperidol 5 Mg Tablet) 5 mg PO BEDTIME PRN PRN Reason: Insomnia Last Admin: 01/19/22 20:17 Dose: 5 mg Hydroxyzine HCl (Hydroxyzine Hcl 25 Mg Tablet) 25 mg PO Q6H PRN PRN Reason: Anxiety Lactulose (Lactulose 20 Gm/30 Ml Solution) 10 gm PO DAILY [facility] Last Admin: 01/20/22 08:48 Dose: 10 gm Lisinopril (Lisinopril 20 Mg Tablet) 20 mg PO DAILY [facility]; Protocol Last Admin: 01/20/22 08:47 Dose: 20 mg Magnesium Hydroxide (Milk Of Magnesia 30 Ml Oral.Susp) 30 ml PO DAILY PRN PRN Reason: Constipation Mirabegron (Mirabegron 50 Mg Tab.Er.24h) 50 mg PO DAILY [facility] Last Admin: 01/20/22 08:47 Dose: 50 mg Nicotine Polacrilex (Nicotine Polacrilex Lozenge 4 Mg Lozenge) 4 mg BUCCAL Q2H PRN PRN Reason: Nicotine Cravings Last Admin: 01/20/22 09:10 Dose: 4 mg Patient Own Med ( Methenamine Hippurate 1 Gram Tablet) 1 gm PO DAILY [facility] Last Admin: 01/20/22 09:10 Dose: 1 gm Patient Own Med ( Daridorexant [ Quviviq] 25 Mg Tablet) 1 tab PO BEDTIME PRN PRN Reason: Sleep Last Admin: 01/19/22 22:30 Dose: 1 tab Omeprazole (Omeprazole 40 Mg Capsule.Dr) 40 mg PO DAILY@0630 [facility] Last Admin: 01/20/22 05:34 Dose: 40 mg Tizanidine HCl (Tizanidine Hcl 4 Mg Tablet) 4 mg PO TID [facility] Last Admin: 01/20/22 08:47 Dose: 4 mg Trazodone HCl (Trazodone Hcl 50 Mg Tablet) 50 mg PO BEDTIME PRN PRN Reason: Insomnia Ziprasidone (Ziprasidone 80 Mg Capsule) 80 mg PO BID [facility] Last Admin: 01/20/22 08:46 Dose: 80 mg Allergies Allergies Allergy/AdvReac Type Severity Reaction Status Date / Time No Known Allergies Allergy Verified 11/05/21 09:40 [No Known Allergies*] Assessment & Plan Assessment & Plan (1) Insomnia: Qualifiers: Insomnia type: adjustment Qualified Code(s): F51.02 - Adjustment insomnia Status: Acute Code(s): G47.00 - Insomnia, unspecified (2) Mood disorder: Status: Acute Code(s): F39 - Unspecified mood [affective] disorder (3) PTSD (post-traumatic stress disorder): Status: Acute Code(s): F43.10 - Post-traumatic stress disorder, unspecified (4) Polysubstance use disorder: Status: Acute Code(s): F19.90 - Other psychoactive substance use, unspecified, uncomplicated Plan 31 yo male, hx of PTSD, mood disorder, TBI, polysubstance use and recent severe insomnia with failed trials. Reports racing thoughts, sx of hypomania. Plan: DC Doxepin Depakote ER 250 mg HS Chlorpromazine 50 mg HS 01/20/22 Chlorpromazine not needed 01/19. DC Increase Depakote to 500 mg ER HS I spent minutes with the patient and/or on the patient floor today, greater than?50% of which was spent counseling/coordinating care. Patient educated on: medication risk/benefits and medical condition Informed Consent: understands and further education needed Reason for contiued inpatient stay Substantial Risk for: rapid decompensation
--- NOTE | 2022-01-20 13:41 | HO.ADDICT_ITS ---
History of Present Illness Date of Service: 01/20/2022 Chief Complaint: radha, insomnia, anoxic brain injury hx Reason for Consult: patient interested in MOUD HPI Narrative: Patient is a 31 year old male currently admitted to unit for insomnia and reported radha. History of TBI and neurogenic bladder. Consult requested as patient requesting to start medications for opioid use disorder. Patient seen with RSRN on M5. Patient reports he has been in recovery from opioids (and any other substances) for 5 years. He reports that he wants to get on a irene to make sure he doesn't overdose in the event that he does resume opioid use at some point He states that he has been on MOUD in the past, both methadone (over 100mg) and Buprenorphine, 8mg QD--it has been several years. Discussed UDS results (+fentanyl) patient confident this is a false positive. Does not appear to be experiencing any withdrawal sx, calm and engaged--quite knowledgeable regarding medical dx., medications, upcoming procedures, etc. Reviewed Naltrexone/vivitrol as an option for relapse prevention and patient open and agreeable to this. Discussed concerns/risk with taking naltrexone and opioids. Patient verbalized understanding. Past Psychiatric History: IP: [facility] [place] [facility] OP: MIESHA Salazar-ama, Mark Amor prescriber Trials: Several Review of Systems Constitutional: Reports as per HPI and Reports no additional constitutional complaints Diagnostics Vital Signs (24Hr): Vital Signs - 24 hr 01/19/22 18:00 01/20/22 09:45 Temperature 97.8 F 97.0 F Pulse Rate 101 H 69 Respiratory Rate 16 15 Blood Pressure 127/69 134/68 Pulse Oximetry 100 99 Oxygen Delivery Method Room Air Room Air BMI result Body Mass Index 20.9 Labs Results: 01/16/22 21:35 01/16/22 21:35 Labs: Laboratory Results - last 48 hr 01/19/22 01/19/22 01/19/22 08:12 08:12 08:12 Estimat Average Glucose 105 Hemoglobin A1c % 5.3 Magnesium 2.0 Triglycerides 66 Cholesterol 134 LDL Cholesterol, Calc 79 HDL Cholesterol 42 Vitamin B12 291 Folate 6.5 TSH 1.87 Free T4 0.97 Mental Status Exam Mental Status Exam Patient Appearance: Appropriate Patient Orientation: Person, Place, Time and Situation Level of Consciousness: Awake and Appropriate Patient Behavior: Appropriate Mood Description: Calm Affect Description: Calm Patient Cognition Impaired: No Speech Pattern: Clear Thought Process: Goal Oriented Judgement: Fair Medications Medications Current Medications Acetaminophen (Acetaminophen 325 Mg Tablet) 650 mg PO Q6H PRN PRN Reason: Headache/Pain Mild Scale (1-3) Al Hydroxide/Mg Hydroxide (Magnesium Hydrox/Alum Hydrox 30 Ml Oral.Susp) 30 ml PO Q6H PRN PRN Reason: Heartburn/Nausea Last Admin: 01/19/22 20:47 Dose: 30 ml Amlodipine Besylate (Amlodipine Besylate 2.5 Mg Tablet) 2.5 mg PO DAILY [facility]; Protocol Last Admin: 01/20/22 08:48 Dose: 2.5 mg Amphetamine/Dextroamphetamine (Dextroamphetamine/Amphetamine Xr 10 Mg Cap.Er.24h) 20 mg PO DAILY [facility] Last Admin: 01/18/22 08:54 Dose: 20 mg Amphetamine/Dextroamphetamine (Dextroamphetamine/Amphetamine Xr 10 Mg Cap.Er.24h) 20 mg PO DAILY [facility] Last Admin: 01/20/22 08:48 Dose: 20 mg Carbidopa/Levodopa (Carbidopa/Levodopa 25/250 Tablet) 0.5 tab PO TID [facility] Last Admin: 01/20/22 08:46 Dose: 0.5 tab Clonazepam (Clonazepam 1 Mg Tablet) 1 mg PO TID PRN PRN Reason: Sleep Last Admin: 01/20/22 12:15 Dose: 1 mg Divalproex Sodium (Divalproex Sodium Er 500 Mg Tab.Er.24h) 500 mg PO BEDTIME [facility] Gabapentin (Gabapentin 300 Mg Capsule) 300 mg PO TID [facility] Last Admin: 01/20/22 08:48 Dose: 300 mg Haloperidol (Haloperidol 5 Mg Tablet) 5 mg PO BEDTIME PRN PRN Reason: Insomnia Last Admin: 01/19/22 20:17 Dose: 5 mg Hydroxyzine HCl (Hydroxyzine Hcl 25 Mg Tablet) 25 mg PO Q6H PRN PRN Reason: Anxiety Lactulose (Lactulose 20 Gm/30 Ml Solution) 10 gm PO DAILY [facility] Last Admin: 01/20/22 08:48 Dose: 10 gm Lisinopril (Lisinopril 20 Mg Tablet) 20 mg PO DAILY [facility]; Protocol Last Admin: 01/20/22 08:47 Dose: 20 mg Magnesium Hydroxide (Milk Of Magnesia 30 Ml Oral.Susp) 30 ml PO DAILY PRN PRN Reason: Constipation Mirabegron (Mirabegron 50 Mg Tab.Er.24h) 50 mg PO DAILY [facility] Last Admin: 01/20/22 08:47 Dose: 50 mg Nicotine Polacrilex (Nicotine Polacrilex Lozenge 4 Mg Lozenge) 4 mg BUCCAL Q2H PRN PRN Reason: Nicotine Cravings Last Admin: 01/20/22 11:56 Dose: 4 mg Patient Own Med ( Methenamine Hippurate 1 Gram Tablet) 1 gm PO DAILY [facility] Last Admin: 01/20/22 09:10 Dose: 1 gm Patient Own Med ( Daridorexant [ Quviviq] 25 Mg Tablet) 1 tab PO BEDTIME PRN PRN Reason: Sleep Last Admin: 01/19/22 22:30 Dose: 1 tab Omeprazole (Omeprazole 40 Mg Capsule.Dr) 40 mg PO DAILY@0630 [facility] Last Admin: 01/20/22 05:34 Dose: 40 mg Tizanidine HCl (Tizanidine Hcl 4 Mg Tablet) 4 mg PO TID [facility] Last Admin: 01/20/22 08:47 Dose: 4 mg Trazodone HCl (Trazodone Hcl 50 Mg Tablet) 50 mg PO BEDTIME PRN PRN Reason: Insomnia Ziprasidone (Ziprasidone 80 Mg Capsule) 80 mg PO BID [facility] Last Admin: 01/20/22 08:46 Dose: 80 mg Allergies Allergies Allergy/AdvReac Type Severity Reaction Status Date / Time No Known Allergies Allergy Verified 11/05/21 09:40 [No Known Allergies*] Assessment & Plan Assessment & Plan (1) Insomnia: Qualifiers: Insomnia type: adjustment Qualified Code(s): F51.02 - Adjustment insomnia Status: Acute Code(s): G47.00 - Insomnia, unspecified Assessment and Plan: * Per patient self report --opioid use disorder in sustained remission * UDS ordered again with plan to send for confirmation of fentantyl (previous specimen no longer available in the lab) * can consider a naltrexone challenge, where patient takes 25mg PO naltrexone and monitor for any withdrawal sx. If none then can continue with 50mg QD and plan to receive Vivitrol outpatient * Vivitrol may be a suitable plan for patient as well since his housing is currently unstable and he is living between [place] and [place]. * will follow up with pt in AM and if open to naltrexone challenge can administer while inpatient. I spent __45____ minutes with the patient and/or on the patient floor today, greater than?50% of which was spent counseling/coordinating care. [facility] Past Medical History Medical History (Updated 01/19/22 @ 19:07 by Macarena Suarez APRN) Anoxia of brain Anxiety Ataxia Bipolar 1 disorder BPH (benign prostatic hyperplasia) Hx of traumatic brain injury OAB (overactive bladder) Obstructive sleep apnea OCD (obsessive compulsive disorder) Overactive bladder Parkinsonism Polysubstance use disorder PSP (progressive supranuclear palsy) PTSD (post-traumatic stress disorder) Self-catheterizes urinary bladder Spasticity Family History Family History Father Cancer Mother No problems noted. Surgical History Surgical History History of esophagogastroduodenoscopy (EGD) Hx of cystoscopy Social History Social History Household Members: None Housing: House Do you presently have visiting nurse or other home services: No Alcohol intake: never Patient Tobacco Use Status: Current everyday Tobacco user Tobacco use type: Cigarette Cigarette Packs Per Day: 1 Cigarettes Per Day: 20.0 Years Smoked: 15 Smoked in Last 30 Days: Yes e-Cigarette/Vaping Use: Currently Using Frequency of e-Cigarette/Vaping Use: daily Patient Interested in Nicotine Replacement: Yes Patient Given Instructions on How to Stop Smoking: Yes Date Education Initiated: 01/18/22 Second Hand Smoke Exposure: No Use of substances other than those prescribed or required for medical reasons: Yes Substance Use Type: Marijuana Substance Use Frequency: Daily Last Used Substance: Days (ago) Currently Displaying Signs/Symptoms of Drug Intoxication Withdrawal: No Any prior treatment program specific to substance use: No Have you been hit, kicked, punched, or otherwise hurt by someone within the past year? If so, by whom?: No Do you feel safe in your current relationship?: No Current Relationship Is there a partner from a previous relationship who is making you feel unsafe now?: No Are you made to feel afraid or neglected: No Spiritual Healthcare Practices: N/A Religion Healthcare Practices: N/A Cultural Healthcare Practices: N/A Advance Directives: No Advance Directives Information Provided: No (declined) Do you have thoughts of harming others: None Do you have a plan to hurt others: No Plan Recently lost weight without trying: Yes How much weight loss: 24-33 pounds Eating poorly because of decreased appetite: Yes Nutrition screen score: 6 Nutrition Risks: No Nutritional Risk Poor oral hygiene: No service: No Current occupational status: disabled Sexual orientation: Don't Know
[2022-01-20 18:00] VITALS: BP 112/55; PULSE 114; RESP 18; TEMP 36.4; O2SAT 98
[2022-01-20 18:39] LABS: Amphetamine Screen Urine POSITIVE (Not Detect); Barbiturates, Urine Not Detected (Not Detect); Benzodiazepines Screen Urine Not Detected (Not Detect); Cannabinoid Screen Urine POSITIVE (Not Detect); Cocaine Screen Urine Not Detected (Not Detect); Fentanyl, urine POSITIVE (Not Detect); Opiate Screen Urine Not Detected (Not Detect); Phencyclidine Screen Urine Not Detected (Not Detect)
[2022-01-20] MEDS: Divalproex Sodium ER 500 MG TAB.ER.24H PO (20:34)
[2022-01-20] MEDS: traZODone HCL 50 MG TABLET PO (20:34)
[2022-01-21] MEDS: Omeprazole 40 MG CAPSULE.DR PO (06:12)
[2022-01-21 07:00] VITALS: BMI 21.4
--- NOTE | 2022-01-21 07:04 | HO.PSYCHPN ---
Subjective Subjective Date of Service: 01/21/22 Reason For Visit: radha, insomnia, anoxic brain injury hx Subjective Notes: 3 Day Healthcare Proxy: No Guardianship: No Medical Problems Affecting Mental Status: No Interim History: Pt reports poor sleep last evening. Discussed allowing team/Depakote more time to work with him as he slept 4 hours with Depakote and we may need some time for a consistent level to establish to assist with sleep. Pt will not remain in pt. Plans discharge tomorrow. He asks to try Chlorpromazine tonight. Agrees to stay with Depakote if we work with hair loss potential. Discussed Selenium replacement in MVI which we will order. Asks that Rx be sent to [facility] [address] [place] Call to father Cooper [phone] to discuss-no response when called, no VM available. Medication Compliance: Yes Side effects from medications: No Attending Groups: Intermittent Review of Systems Acute medical concerns: No Medical Review of Systems: unchanged Mental Status Exam Mental Status Exam Patient Appearance: Appropriate Patient Orientation: Person, Place, Time and Situation Level of Consciousness: Alert Patient Behavior: Appropriate, Talkative, Cooperative and Good Eye Contact Mood Description: Anxious and Apprehensive Affect Description: Flat and Apprehensive Patient Cognition Impaired: No Ability to Follow Directions: Good Speech Pattern: Spontaneous Speech Memory Description: Episodic Impaired Hallucinations: None Thought Process: Intact and Goal Oriented Thought Content: positive for Intact and positive for Goal Oriented Depressive Symptoms: Increased Anxiety Judgement: Fair Diagnostics Vital Signs (24Hr): Vital Signs - 24 hr 01/20/22 09:45 01/20/22 18:00 Temperature 97.0 F 97.6 F Pulse Rate 69 114 H Respiratory Rate 15 18 Blood Pressure 134/68 112/55 L Pulse Oximetry 99 98 Oxygen Delivery Method Room Air Room Air BMI result Body Mass Index 20.9 Labs Results: 01/16/22 21:35 01/16/22 21:35 Labs: Laboratory Results - last 48 hr 01/19/22 01/19/22 01/19/22 08:12 08:12 08:12 Estimat Average Glucose 105 Hemoglobin A1c % 5.3 Magnesium 2.0 Triglycerides 66 Cholesterol 134 LDL Cholesterol, Calc 79 HDL Cholesterol 42 Vitamin B12 291 Folate 6.5 TSH 1.87 Free T4 0.97 Urine Opiates Screen Urine Fentanyl Screen Ur Barbiturates Screen Ur Phencyclidine Scrn Ur Amphetamines Screen U Benzodiazepines Scrn Urine Cocaine Screen U Marijuana (THC) Screen 01/20/22 18:05 Estimat Average Glucose Hemoglobin A1c % Magnesium Triglycerides Cholesterol LDL Cholesterol, Calc HDL Cholesterol Vitamin B12 Folate TSH Free T4 Urine Opiates Screen Not Detected Urine Fentanyl Screen POSITIVE H Ur Barbiturates Screen Not Detected Ur Phencyclidine Scrn Not Detected Ur Amphetamines Screen POSITIVE H U Benzodiazepines Scrn Not Detected Urine Cocaine Screen Not Detected U Marijuana (THC) Screen POSITIVE H Medications Medications Current Medications Acetaminophen (Acetaminophen 325 Mg Tablet) 650 mg PO Q6H PRN PRN Reason: Headache/Pain Mild Scale (1-3) Al Hydroxide/Mg Hydroxide (Magnesium Hydrox/Alum Hydrox 30 Ml Oral.Susp) 30 ml PO Q6H PRN PRN Reason: Heartburn/Nausea Last Admin: 01/19/22 20:47 Dose: 30 ml Amlodipine Besylate (Amlodipine Besylate 2.5 Mg Tablet) 2.5 mg PO DAILY [facility]; Protocol Last Admin: 01/20/22 08:48 Dose: 2.5 mg Amphetamine/Dextroamphetamine (Dextroamphetamine/Amphetamine Xr 10 Mg Cap.Er.24h) 20 mg PO DAILY [facility] Last Admin: 01/18/22 08:54 Dose: 20 mg Amphetamine/Dextroamphetamine (Dextroamphetamine/Amphetamine Xr 10 Mg Cap.Er.24h) 20 mg PO DAILY [facility] Last Admin: 01/20/22 08:48 Dose: 20 mg Carbidopa/Levodopa (Carbidopa/Levodopa 25/250 Tablet) 0.5 tab PO TID [facility] Last Admin: 01/20/22 20:34 Dose: 0.5 tab Clonazepam (Clonazepam 1 Mg Tablet) 1 mg PO TID PRN PRN Reason: Sleep Last Admin: 01/20/22 12:15 Dose: 1 mg Divalproex Sodium (Divalproex Sodium Er 500 Mg Tab.Er.24h) 500 mg PO BEDTIME [facility] Last Admin: 01/20/22 20:34 Dose: 500 mg Gabapentin (Gabapentin 300 Mg Capsule) 300 mg PO TID [facility] Last Admin: 01/20/22 20:39 Dose: 300 mg Haloperidol (Haloperidol 5 Mg Tablet) 5 mg PO BEDTIME PRN PRN Reason: Insomnia Last Admin: 01/19/22 20:17 Dose: 5 mg Hydroxyzine HCl (Hydroxyzine Hcl 25 Mg Tablet) 25 mg PO Q6H PRN PRN Reason: Anxiety Lactulose (Lactulose 20 Gm/30 Ml Solution) 10 gm PO DAILY [facility] Last Admin: 01/20/22 08:48 Dose: 10 gm Lisinopril (Lisinopril 20 Mg Tablet) 20 mg PO DAILY [facility]; Protocol Last Admin: 01/20/22 08:47 Dose: 20 mg Magnesium Hydroxide (Milk Of Magnesia 30 Ml Oral.Susp) 30 ml PO DAILY PRN PRN Reason: Constipation Mirabegron (Mirabegron 50 Mg Tab.Er.24h) 50 mg PO DAILY [facility] Last Admin: 01/20/22 08:47 Dose: 50 mg Nicotine Polacrilex (Nicotine Polacrilex Lozenge 4 Mg Lozenge) 4 mg BUCCAL Q2H PRN PRN Reason: Nicotine Cravings Last Admin: 01/20/22 21:33 Dose: 4 mg Patient Own Med ( Methenamine Hippurate 1 Gram Tablet) 1 gm PO DAILY [facility] Last Admin: 01/20/22 09:10 Dose: 1 gm Patient Own Med ( Daridorexant [ Quviviq] 25 Mg Tablet) 1 tab PO BEDTIME PRN PRN Reason: Sleep Last Admin: 01/20/22 20:47 Dose: 1 tab Omeprazole (Omeprazole 40 Mg Capsule.Dr) 40 mg PO DAILY@0630 [facility] Last Admin: 01/21/22 06:12 Dose: 40 mg Tizanidine HCl (Tizanidine Hcl 4 Mg Tablet) 4 mg PO TID [facility] Last Admin: 01/20/22 20:39 Dose: 4 mg Trazodone HCl (Trazodone Hcl 50 Mg Tablet) 50 mg PO BEDTIME PRN PRN Reason: Insomnia Last Admin: 01/20/22 20:34 Dose: 50 mg Ziprasidone (Ziprasidone 80 Mg Capsule) 80 mg PO BID [facility] Last Admin: 01/20/22 20:33 Dose: 80 mg Allergies Allergies Allergy/AdvReac Type Severity Reaction Status Date / Time No Known Allergies Allergy Verified 11/05/21 09:40 [No Known Allergies*] Assessment & Plan Assessment & Plan (1) Insomnia: Qualifiers: Insomnia type: adjustment Qualified Code(s): F51.02 - Adjustment insomnia Status: Acute Code(s): G47.00 - Insomnia, unspecified (2) Mood disorder: Status: Acute Code(s): F39 - Unspecified mood [affective] disorder (3) PTSD (post-traumatic stress disorder): Status: Acute Code(s): F43.10 - Post-traumatic stress disorder, unspecified (4) Polysubstance use disorder: Status: Acute Code(s): F19.90 - Other psychoactive substance use, unspecified, uncomplicated Plan 31 yo male, hx of PTSD, mood disorder, TBI, polysubstance use and recent severe insomnia with failed trials. Reports racing thoughts, sx of hypomania. Plan: DC Doxepin Depakote ER 250 mg HS Chlorpromazine 50 mg HS 01/20/22 Chlorpromazine not needed 01/19. DC Increase Depakote to 500 mg ER HS 01/21/22 Reports poor sleep last night. Continue Depakote Chlorpromazine 50 mg HS trial Pt will not remain in patient to continue to work on sx. Plans discharge per TDN on 01/22. I spent minutes with the patient and/or on the patient floor today, greater than?50% of which was spent counseling/coordinating care. Patient educated on: medication risk/benefits and therapeutic strategies Informed Consent: further education needed Reason for contiued inpatient stay Substantial Risk for: rapid decompensation
[2022-01-21 08:03] VITALS: BP 119/68; PULSE 78; RESP 16; TEMP 36.6; O2SAT 97
[2022-01-21] MEDS: Gabapentin 300 MG CAPSULE PO ×3 (08:11→18:52)
[2022-01-21] MEDS: Carbidopa/Levodopa 25/250 TABLET 0.5 TAB PO ×3 (08:11→18:51)
[2022-01-21] MEDS: Nicotine Polacrilex Lozenge 4 MG LOZENGE BUCCAL ×4 (08:11→18:51)
[2022-01-21] MEDS: Ziprasidone 80 MG CAPSULE PO ×2 (08:12→18:52)
[2022-01-21] MEDS: Mirabegron 50 MG TAB.ER.24H PO (08:12)
[2022-01-21] MEDS: lisinopriL 20 MG TABLET PO (08:12)
[2022-01-21] MEDS: TiZANidine HCL 4 MG TABLET PO ×3 (08:12→18:52)
[2022-01-21] MEDS: amLODIPine Besylate 2.5 MG TABLET PO (08:12)
[2022-01-21] MEDS: Lactulose 20 GM/30 ML SOLUTION 10 GM PO (08:12)
[2022-01-21] MEDS: clonazePAM 1 MG TABLET PO ×3 (08:36→18:51)
[2022-01-21] MEDS: Dextroamphetamine/Amphetamine XR 10 MG CAP.ER.24H 20 MG PO (08:46)
--- NOTE | 2022-01-21 11:16 | MHC.RECOVRN ---
Met with pt to follow up regarding MOUD. Pt interested in naltrexone with the goal of obtaining Vivitrol injection. Discussed risks associated with naltrexone initation and fentanyl positive UDS. Pt reports positive UDS is related to medications, denies use. Pt requesting to have urine sent for confirmatory. Pt encouraged to notify staff if feeling unwell after taking naltrexone. Pt would like to continue care at the [facility]. Plan for pt to present to [facility] immediately after dc from M5 to complete intake. Pt denies questions or conerns at this time. Discussed with Elizabeth Marcum APRN.
[2022-01-21] MEDS: Naltrexone HCl 50 MG TABLET 25 MG PO (12:14)
[2022-01-21] MEDS: Acetaminophen 325 MG TABLET 650 MG PO (15:40)
--- NOTE | 2022-01-21 15:49 | PM.EVENT ---
Event Note Date of Service: 01/21/22 Event Note: Addiction follow up Patient seen by RSRN. Agreeable to naltrexone PO UDS again +fentanyl (sent out) Recieved one 25mg dose naltexone with no issues Plan: -50mg naltrexone PO -intake tmrw with [facility] to continue treatment and order vivitrol
[2022-01-21 17:50] VITALS: BP 117/62; PULSE 109
[2022-01-21] MEDS: Milk of Magnesia 30 ML ORAL.SUSP PO (18:15)
[2022-01-21] MEDS: chlorproMAZINE HCl 100 MG TABLET 50 MG PO (18:50)
[2022-01-21] MEDS: Divalproex Sodium ER 500 MG TAB.ER.24H PO (18:52)
[2022-01-21] MEDS: polyethylene glycoL 3350 17 GM POWD.PACK PO (20:28)
[2022-01-22] MEDS: hydrOXYzine HCL 25 MG TABLET PO (03:02)
[2022-01-22] MEDS: HaloperidoL 5 MG TABLET PO (03:02)
[2022-01-22] MEDS: traZODone HCL 50 MG TABLET PO (03:03)
[2022-01-22] MEDS: Nicotine Polacrilex Lozenge 4 MG LOZENGE BUCCAL ×2 (05:10→08:29)
[2022-01-22] MEDS: Omeprazole 40 MG CAPSULE.DR PO (05:10)
[2022-01-22 06:00] VITALS: BP 129/78; PULSE 86; RESP 18
[2022-01-22] MEDS: Multivitamin with Minerals Liq 15 ML LIQUID PO (08:27)
[2022-01-22] MEDS: Lactulose 20 GM/30 ML SOLUTION 10 GM PO (08:27)
[2022-01-22] MEDS: amLODIPine Besylate 2.5 MG TABLET PO (08:28)
[2022-01-22] MEDS: TiZANidine HCL 4 MG TABLET PO (08:28)
[2022-01-22] MEDS: Gabapentin 300 MG CAPSULE PO (08:28)
[2022-01-22] MEDS: Naltrexone HCl 50 MG TABLET PO (08:28)
[2022-01-22] MEDS: Dextroamphetamine/Amphetamine XR 10 MG CAP.ER.24H 20 MG PO (08:28)
[2022-01-22] MEDS: Ziprasidone 80 MG CAPSULE PO (08:28)
[2022-01-22] MEDS: Mirabegron 50 MG TAB.ER.24H PO (08:29)
[2022-01-22] MEDS: Carbidopa/Levodopa 25/250 TABLET 0.5 TAB PO (08:29)
[2022-01-22] MEDS: lisinopriL 20 MG TABLET PO (08:29)
--- NOTE | 2022-01-22 16:58 | PM.PSYDC ---
DS: Providers Provider Date of Service: 01/22/22 Date of admission: 01/18/22 16:42 Date of discharge: 01/22/22 [facility]mitting clinician: Macarena Suarez Attending physician on admission: Felipe Marshall Consults: 01/19/22 15:49 Addiction Medicine Routine Consulting Provider: Addiction Covering Reason for consultation: Star would like to discuss Methadone and Suboxone therapies Has provider been notified: No Attending physician on discharge: Felipe Marshall Discharging clinician: Macarena Suarez DS: Diagnosis Discharge Diagnosis (1) Insomnia: Status: Acute (2) Mood disorder: Status: Acute (3) PTSD (post-traumatic stress disorder): Status: Acute (4) Polysubstance use disorder: Status: Acute DS: Medications Discharge Medications Home Medications: Home Medications Medication Instructions Recorded Confirmed carbidopa 25 mg-levodopa 250 mg 0.5 tab PO TID 03/27/20 01/16/22 tablet dextroamphetamine-amphetamine ER 1 cap PO QAM 04/24/20 01/16/22 20 mg 24hr capsule,extend release ziprasidone HCl 40 mg capsule 80 mg PO BID 04/07/21 01/16/22 clonazepam 1 mg tablet 1 mg PO TID PRN Sleep 07/15/21 01/16/22 lisinopril 10 mg tablet 20 mg PO DAILY 07/15/21 01/16/22 tizanidine 4 mg tablet 4 mg PO TID 11/05/21 01/16/22 cyclobenzaprine 5 mg tablet 1 tab PO BEDTIME PRN Pain 01/17/22 01/17/22 daridorexant 25 mg tablet (Quviviq) 1 tab PO DAILY PRN Sleep 01/17/22 01/17/22 lactulose 10 gram/15 mL oral 15 ml PO DAILY 01/17/22 01/17/22 solution mirabegron 50 mg tablet,extended 1 tab PO DAILY 01/17/22 01/17/22 release 24 hr (Myrbetriq) Previous Rx's Medication Instructions Recorded methenamine hippurate 1 gram tablet 1 g PO DAILY 90 days #90 tabs 01/05/21 omeprazole 20 mg capsule,delayed 40 mg PO DAILY #180 caps 07/29/21 release amlodipine 2.5 mg tablet 2.5 mg PO DAILY #90 tabs 12/23/21 gabapentin 300 mg capsule 300 mg PO TID 30 days #90 caps 12/25/21 chorionic gonadotropin, human 5 unit IM 2XW 60 days #2 ea 01/20/22 10,000 unit intramuscular solution Chorionic Gonadotropin 0.5 ml IM TuTh@0900 ##0 01/22/22 divalproex 500 mg tablet,extended 500 mg PO BEDTIME #15 tabs 01/22/22 release 24 hr haloperidol 5 mg tablet 5 mg PO BEDTIME PRN Insomnia #15 01/22/22 tabs multivitamin with minerals 1 cap PO DAILY #30 caps 01/22/22 naltrexone 50 mg tablet 50 mg PO DAILY #30 tabs 01/22/22 naltrexone 50 mg tablet 50 mg PO DAILY #7 tabs 01/22/22 naltrexone microspheres 380 mg 380 mg IM Q4W #1 ea 01/22/22 intramuscular suspension,extended release (Vivitrol) nicotine (polacrilex) 4 mg buccal 4 mg buccal Q2H PRN Nicotine 01/22/22 lozenge Cravings #60 ea Mental Status Exam Mental Status Exam Patient Appearance: Appropriate Patient Orientation: Person, Place, Time and Situation Level of Consciousness: Alert Patient Behavior: Appropriate, Talkative, Cooperative and Good Eye Contact Mood Description: Anxious and Apprehensive Affect Description: Flat and Apprehensive Patient Cognition Impaired: No Ability to Follow Directions: Good Speech Pattern: Spontaneous Speech Memory Description: Episodic Impaired Hallucinations: None Thought Process: Intact and Goal Oriented Thought Content: positive for Intact and positive for Goal Oriented Depressive Symptoms: Increased Anxiety Judgement: Fair Data Data Completed and Pending Completed studies during hospitalization [Text1]: 01/16/22 01/16/22 01/16/22 21:14 21:14 21:14 WBC RBC Hgb Hct MCV MCH MCHC RDW Plt Count MPV Immature Gran % (Auto) Neut % (Auto) Lymph % (Auto) [place] % (Auto) Eos % (Auto) Baso % (Auto) Lymph # (Auto) [place] # (Auto) Eos # (Auto) Baso # (Auto) Abs Immat Gran (auto) Absolute Neuts (auto) Absolute Nucleated RBC Nucleated RBC % (auto) Sodium Potassium Chloride Carbon Dioxide Anion Gap BUN Creatinine Estim Creat Clear Calc Estimated GFR Random Glucose Estimat Average Glucose Hemoglobin A1c % Calcium Magnesium Total Bilirubin Direct Bilirubin AST ALT Alkaline Phosphatase Total Protein Albumin Triglycerides Cholesterol LDL Cholesterol, Calc HDL Cholesterol Vitamin B12 Folate TSH Free T4 Urine Color Yellow Urine Appearance Clear Urine pH 6.0 Ur Specific [place] <= 1.005 Urine Protein Negative Urine Glucose (UA) Negative Urine Ketones Negative Urine Blood Negative Urine Nitrite Negative Ur Leukocyte Esterase Negative Urine Opiates Screen Not Detected Urine Fentanyl Screen POSITIVE H Urine Fentanyl Ur Norfentanyl Quant Ur Barbiturates Screen Not Detected Ur Phencyclidine Scrn Not Detected Ur Amphetamines Screen Not Detected U Benzodiazepines Scrn Not Detected Urine Cocaine Screen Not Detected U Marijuana (THC) Screen POSITIVE H Ethyl Alcohol COVID-19 ([facility]) Negative COVID-19 Clin Com See Note 01/16/22 01/16/22 01/16/22 21:35 21:35 21:35 WBC 12.1 H RBC 5.48 D Hgb 15.0 D Hct 44.9 D MCV 81.9 MCH 27.4 MCHC 33.4 RDW 13.5 Plt Count 322 MPV 9.6 Immature Gran % (Auto) 0.5 H Neut % (Auto) 62.2 Lymph % (Auto) 28.5 [place] % (Auto) 6.2 Eos % (Auto) 2.2 Baso % (Auto) 0.4 Lymph # (Auto) 3.5 [place] # (Auto) 0.8 Eos # (Auto) 0.3 Baso # (Auto) 0.1 Abs Immat Gran (auto) 0.06 H Absolute Neuts (auto) 7.5 Absolute Nucleated RBC 0.000 Nucleated RBC % (auto) 0.0 Sodium 143 Potassium 3.9 Chloride 104 Carbon Dioxide 25 Anion Gap 18 BUN 9 Creatinine 0.71 Estim Creat Clear Calc 142.4 Estimated GFR > 60 Random Glucose 83 Estimat Average Glucose Hemoglobin A1c % Calcium 9.7 D Magnesium 2.1 Total Bilirubin 0.6 Direct Bilirubin 0.2 AST 16 ALT 8 Alkaline Phosphatase 81 Total Protein 7.4 Albumin 4.8 Triglycerides Cholesterol LDL Cholesterol, Calc HDL Cholesterol Vitamin B12 Folate TSH Free T4 Urine Color Urine Appearance Urine pH Ur Specific [place] Urine Protein Urine Glucose (UA) Urine Ketones Urine Blood Urine Nitrite Ur Leukocyte Esterase Urine Opiates Screen Urine Fentanyl Screen Urine Fentanyl Ur Norfentanyl Quant Ur Barbiturates Screen Ur Phencyclidine Scrn Ur Amphetamines Screen U Benzodiazepines Scrn Urine Cocaine Screen U Marijuana (THC) Screen Ethyl Alcohol 20 COVID-19 ([facility]) COVID-19 Clin Com 01/19/22 01/19/22 01/19/22 08:12 08:12 08:12 WBC RBC Hgb Hct MCV MCH MCHC RDW Plt Count MPV Immature Gran % (Auto) Neut % (Auto) Lymph % (Auto) [place] % (Auto) Eos % (Auto) Baso % (Auto) Lymph # (Auto) [place] # (Auto) Eos # (Auto) Baso # (Auto) Abs Immat Gran (auto) Absolute Neuts (auto) Absolute Nucleated RBC Nucleated RBC % (auto) Sodium Potassium Chloride Carbon Dioxide Anion Gap BUN Creatinine Estim Creat Clear Calc Estimated GFR Random Glucose Estimat Average Glucose 105 Hemoglobin A1c % 5.3 Calcium Magnesium 2.0 Total Bilirubin Direct Bilirubin AST ALT Alkaline Phosphatase Total Protein Albumin Triglycerides 66 Cholesterol 134 LDL Cholesterol, Calc 79 HDL Cholesterol 42 Vitamin B12 291 Folate 6.5 TSH 1.87 Free T4 0.97 Urine Color Urine Appearance Urine pH Ur Specific [place] Urine Protein Urine Glucose (UA) Urine Ketones Urine Blood Urine Nitrite Ur Leukocyte Esterase Urine Opiates Screen Urine Fentanyl Screen Urine Fentanyl Ur Norfentanyl Quant Ur Barbiturates Screen Ur Phencyclidine Scrn Ur Amphetamines Screen U Benzodiazepines Scrn Urine Cocaine Screen U Marijuana (THC) Screen Ethyl Alcohol COVID-19 ([facility]) COVID-19 [employer] 01/20/22 01/21/22 18:05 12:10 WBC RBC Hgb Hct MCV MCH MCHC RDW Plt Count MPV Immature Gran % (Auto) Neut % (Auto) Lymph % (Auto) [place] % (Auto) Eos % (Auto) Baso % (Auto) Lymph # (Auto) [place] # (Auto) Eos # (Auto) Baso # (Auto) Abs Immat Gran (auto) Absolute Neuts (auto) Absolute Nucleated RBC Nucleated RBC % (auto) Sodium Potassium Chloride Carbon Dioxide Anion Gap BUN Creatinine Estim Creat Clear Calc Estimated GFR Random Glucose Estimat Average Glucose Hemoglobin A1c % Calcium Magnesium Total Bilirubin Direct Bilirubin AST ALT Alkaline Phosphatase Total Protein Albumin Triglycerides Cholesterol LDL Cholesterol, Calc HDL Cholesterol Vitamin B12 Folate TSH Free T4 Urine Color Urine Appearance Urine pH Ur Specific [place] Urine Protein Urine Glucose (UA) Urine Ketones Urine Blood Urine Nitrite Ur Leukocyte Esterase Urine Opiates Screen Not Detected Urine Fentanyl Screen POSITIVE H Pending Urine Fentanyl Pending Ur Norfentanyl Quant Pending Ur Barbiturates Screen Not Detected Ur Phencyclidine Scrn Not Detected Ur Amphetamines Screen POSITIVE H U Benzodiazepines Scrn Not Detected Urine Cocaine Screen Not Detected U Marijuana (THC) Screen POSITIVE H Ethyl Alcohol COVID-19 ([facility]) COVID-19 Clin Com DS: Summary Hospital Course Hospital Course: Admission to adult psychiatry 01/19/22 to 01/22/22 for exacerbation of symptoms of insomnia, mood disorder, PTSD. Hx of polysubstance use with positive toxicology for amphetamines (prescribed), fentanyl, cannabis. Pt reported main sx of insomnia. Depakote 250 mg was given with success~4.5 hours on admit. Titration to 500 mg which was continuing to metabolize however was tolerated. Chlorpromazine 50 mg was trialed x 1 with no result, so discontinued. Pt reported finding Haldol 5 mg HS prn helpful. Klonopin, Adderall XR, Geodon were continued. Quvivig was not used. Doxepin was discontinued. Pt signed a three day notice on admit and would not remain in hospital as we had just started to make some progress on stabilizing his sleep cycle. Pt met with addictions team and will continue to meet with them as he is interested in Vivitrol. Time spent discussing smoking cessation with patient: 3 to 10 minutes Status at Discharge Functional status at discharge: independent ambulation Overall status at discharge: patient is progressing back to baseline Time Spent with Patient Time attestation: Total time spent providing and/or coordinating discharge services: 35 Time spent: Greater than 30 minutes Discharge Plan Discharge Anticipated Discharge Date/Time: 01/22/22 13:59 Patient Disposition: Home, Self-Care Discharge Diagnosis: Mood Disorder PTSD Insomnia Polysubstance Use Disorder Referrals: Vivitrol: [facility] [Other] - 01/22/22 11:15 am (Your appointment will take 45 minutes and is with Elizabeth Marcum. ) Therapy: Marie Rodríguez ([facility]) [Other] - 01/22/22 12:45 pm (Telehealth ) Psychiatry: Phong Amor ([facility]) [Other] - 01/29/22 10:20 am (Telehealth ) Epilepsy Physician: [facility] [Other] - 1 Week (Santosh's extension is 318. He will be calling you today after 2pm to arrange a time for you to complete an intake for their services. If you do not hear from him today, call him on Tuesday, 01/25. ) Edmond Murillo FNP- [Primary Care Provider] - 1 Week (PCP will call Patient with a follow-up Appointment after Discharge.) Discharge Medications: New divalproex 500 mg Tablet Extended Release 24 Hr 500 mg PO BEDTIME Qty: 15 1RF nicotine (polacrilex) 4 mg Lozenge 4 mg buccal Q2H PRN (Reason: Nicotine Cravings) Qty: 60 0RF haloperidol 5 mg Tablet 5 mg PO BEDTIME PRN (Reason: Insomnia) Qty: 15 1RF Chorionic Gonadotropin 0.5 ml IM TuTh@0900 Qty: 0 0RF multivitamin with minerals Capsule 1 cap PO DAILY Qty: 30 0RF Continued methenamine hippurate 1 gram tablet 1 g PO DAILY 90 Days Qty: 90 3RF amlodipine 2.5 mg tablet 2.5 mg PO DAILY Qty: 90 0RF carbidopa-levodopa 25-250 mg tablet 0.5 tab PO TID cyclobenzaprine 5 mg tablet 1 tab PO BEDTIME PRN (Reason: Pain) Myrbetriq 50 mg tablet extended release 24 hr 1 tab PO DAILY Quviviq 25 mg tablet 1 tab PO DAILY PRN (Reason: Sleep) ziprasidone HCl 40 mg capsule 80 mg PO BID dextroamphetamine-amphetamine 20 mg capsule,extended release 24hr 1 cap PO QAM clonazepam 1 mg tablet 1 mg PO TID PRN (Reason: Sleep) lisinopril 10 mg tablet 20 mg PO DAILY tizanidine 4 mg tablet 4 mg PO TID PRN (Reason: Muscle Spasm) Discontinued chorionic gonadotropin, human 10,000 unit recon soln See Rx Instructions IM .COMPLEX 60 Days Qty: 2 2RF Rx Instructions: - 0.5cc IM 2 x a week; dilute in 5 ml NS - injection should be 1000 units per injection doxepin 10 mg capsule 10 mg PO BEDTIME No Action lactulose 10 gram/15 mL solution 15 ml PO DAILY PRN (Reason: constipation) Qty: 946 0RF omeprazole 20 mg capsule,delayed release(DR/EC) 40 mg PO DAILY Qty: 180 1RF gabapentin 300 mg capsule 300 mg PO TID 30 Days Qty: 90 1RF naltrexone 50 mg tablet 50 mg PO DAILY Qty: 30 0RF Rx Instructions: take 1/2 tab daily for 3 days then increase to one tab daily Vivitrol 380 mg suspension,extended rel recon 380 mg IM Q4W Qty: 1 5RF Discharge Orders: Discharge Order (Routine); Ordered 01/22/22 Ordered By: Macarena Suarez Diet: Advance to usual diet Activity on Discharge: As tolerated Stand Alone Forms: Patient Portal Discharge page, Community Support Care Plan Goals: Mood and behavioral stability Health Concerns: Stable mood and behaviors Improved sleep quality Plan of Treatment: Follow up with out patient providers Take medications as directed Assessment: Pt declines to remain in patient to continue to work on sleep symptoms. Three day notice expires today. Discharge Date/Time: 01/22/22 11:12
[2022-02-06 08:01] LABS: Fentanyl, Ur NEGATIVE; Norfentanyl, Ur NEGATIVE
== END 2022-01-22 11:12 | disposition home or self-care (01) | DRG 885 ==
LOC: HO.ED 01-18 16:56 → HO.PM5 01-18 16:57
PROVIDERS: Nurse Practitioner Psychiatric/Mental Health; Admitting Provider Clinical Nurse Specialist Psychiatric/Mental Health, Adult; Emergency Provider Emergency Medicine; PCP Nurse Practitioner Family; Visit Provider Clinical Nurse Specialist Psychiatric/Mental Health, Adult
DX: F39 Unspecified mood [affective] disorder (principal); F43.10 Post-traumatic stress disorder, unspecified; F51.02 Adjustment insomnia; F17.210 Nicotine dependence, cigarettes, uncomplicated; Z20.822 Contact with and (suspected) exposure to COVID-19; Z23 Encounter for immunization; Z71.6 Tobacco abuse counseling; Z87.820 Personal history of traumatic brain injury; Z79.899 Other long term (current) drug therapy
CPT/HCPCS: 36415; 80048; 80061; 80076; 80307; 80354; 81003; 82077; 82607; 82746; 83036; 83735; 84439; 84443; 85025; 87635; 90686; 90792; 93005; 99285

== ENCOUNTER → 2022-01-22 11:16 | Outpatient (BNVA) | payer MEDICARE, MEDICAID, SELFPAY | PROVIDERS: PCP Nurse Practitioner Family; Visit Provider Nurse Practitioner Psychiatric/Mental Health | DX: F11.20 Opioid dependence, uncomplicated (principal) | CPT/HCPCS: 99212 ==

== ENCOUNTER → 2022-02-08 07:37 | Day surgery (SDC) | payer MEDICARE, MEDICAID, SELFPAY ==
[2022-02-01 13:02] VITALS: BMI 22.2
[2022-02-01 14:35] VITALS: BMI 22.1
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
--- NOTE | 2022-02-08 08:47 | PC.NURSE ---
PATIENT STATES HE TAKES AN UNKNOWN MEDICATIN THAT BREAKS DOWN INTO FENTANYL. DENIES TAKING FENTANYL. UNABLE TO GIVE A URINE SAMPLE AT THIS TIME.
--- NOTE | 2022-02-08 09:03 | PC.NURSE ---
PATIENT ATTEMPTING TO GIVE A URINE SAMPLE
[2022-02-08 09:12] VITALS: BP 103/52; PULSE 76; RESP 16; TEMP 36.3; O2SAT 95
[2022-02-08 09:27] LABS: Amphetamine Screen Urine POSITIVE (Not Detect); Barbiturates, Urine Not Detected (Not Detect); Benzodiazepines Screen Urine Not Detected (Not Detect); Cannabinoid Screen Urine POSITIVE (Not Detect); Cocaine Screen Urine Not Detected (Not Detect); Fentanyl, urine POSITIVE (Not Detect); Opiate Screen Urine Not Detected (Not Detect); Phencyclidine Screen Urine Not Detected (Not Detect)
== END ==
PROVIDERS: Nurse Practitioner; PCP Nurse Practitioner Family; Visit Provider Urology
DX: N32.81 Overactive bladder (principal); Z53.8 Procedure and treatment not carried out for other reasons; R79.9 Abnormal finding of blood chemistry, unspecified; E23.0 Hypopituitarism; Z79.899 Other long term (current) drug therapy
CPT/HCPCS: 36415; 80053; 80061; 80307; 81003; 83001; 83002; 84403; 84443; 85025; J0585

== ENCOUNTER 2022-02-08 10:58 | Outpatient (REF) | payer MEDICARE, MEDICAID, SELFPAY ==
[2022-02-08 13:56] LABS: MANUAL DIFF FLAG NO
[2022-02-08 14:00] LABS: Basophils Percent Auto 0.3 % (0-2); Eosinophils Absolute Auto 0.2 X10*3/uL (0.0-0.4); Eosinophils Percent Auto 1.3 % (0-4); Hematocrit 43.6 % (42.0-52.0); Hemoglobin 14.5 g/dl (14.0-18.0); Imm Gran Abs Auto 0.09 X10*3/uL (0.00-0.03); Imm Gran Pct Auto 0.6 % (0.0-0.4); Lymphocytes Absolute Auto 3.1 X10*3/uL (1.2-4.9); Lymphocytes Percent Auto 22.1 % (20-40); Mean Corpuscular HGB Conc 33.3 g/dl (31.0-36.0); Mean Corpuscular Hemoglobin 27.7 pg (27.0-33.0); Mean Corpuscular Volume 83.2 fL (80.0-98.0); Mean Platelet Volume 10.7 fL (9.4-12.4); Monocytes Percent Auto 7.5 % (2-11); Neutrophils Absolute Auto 9.5 x10*3/uL (2.0-8.3); Neutrophils Percent Auto 68.2 % (45-73); Platelet Count 293 X10*3/uL (160-400); Red Blood Count 5.24 X10*6/uL (4.60-5.80); Red Cell Distribution Width 14.4 % (11.0-16.0); White Blood Count 13.9 X10*3/uL (4.8-10.8)
[2022-02-08 14:05] LABS: Appearance Urine Clear; Color Urine Yellow; Glucose Urine UA Negative (Negative); Leukocyte Esterase Urine Negative (Negative); Nitrite Urine Negative (Negative); Urine Blood Negative (Negative); Urine Ketones Negative (Negative); Urine Protein Negative (Neg-Trace)
[2022-02-08 14:38] LABS: Alanine Aminotransferase < 6 U/L (0-40); Albumin Level 4.5 g/dL (3.5-5.0); Alkaline Phosphatase 65 U/L (39-117); Anion Gap 13 (12-20); Aspartate Amino Transferase 8 U/L (5-37); Bilirubin Total 0.7 mg/dL (0.0-1.0); Blood Urea Nitrogen 13 mg/dL (9-16); Calcium 9.5 mg/dL (8.4-10.2); Carbon Dioxide 29 mmol/L (22-29); Chloride 102 mmol/L (96-108); Cholesterol 143 mg/dL; Estimated Glomerular Filt Rate > 60; Glucose Fasting 92 mg/dL (60-99); HDL Cholesterol 41 mg/dL; LDL Cholesterol Calculated 84 mg/dl; Potassium 4.4 mmol/L (3.3-5.1); Sodium 140 mmol/L (135-145); Triglycerides 92 mg/dL
[2022-02-10 04:52] LABS: Follicle Stimulating Hormone 1.9 mIU/mL (1.6-8.0); Lutenizing Hormone 6.4 mIU/mL (1.5-9.3)
[2022-02-13 14:45] LABS: Testosterone, Total 739 ng/dL (250-1100)
== END 2022-02-08 10:59 | disposition home or self-care (01) ==
LOC: HO.HMGCLDS 10:58
PROVIDERS: Urology; PCP Nurse Practitioner Family; Visit Provider Nurse Practitioner Family
DX: Z13.89 Encounter for screening for other disorder (principal)
CPT/HCPCS: 36415; 80053; 80061; 81003; 83001; 83002; 84403; 84443; 85025

== ENCOUNTER 2022-02-09 11:38 | Outpatient (REF) | payer MEDICARE, MEDICAID, SELFPAY ==
[2022-02-09 14:18] LABS: MANUAL DIFF FLAG NO
[2022-02-09 14:21] LABS: Basophils Absolute Auto 0.1 X10*3/uL (0.0-0.2); Basophils Percent Auto 0.4 % (0-2); Eosinophils Absolute Auto 0.1 X10*3/uL (0.0-0.4); Eosinophils Percent Auto 0.8 % (0-4); Hematocrit 43.7 % (42.0-52.0); Hemoglobin 14.3 g/dl (14.0-18.0); Imm Gran Pct Auto 0.8 % (0.0-0.4); Lymphocytes Absolute Auto 2.8 X10*3/uL (1.2-4.9); Lymphocytes Percent Auto 22.2 % (20-40); Mean Corpuscular HGB Conc 32.7 g/dl (31.0-36.0); Mean Corpuscular Hemoglobin 27.6 pg (27.0-33.0); Mean Corpuscular Volume 84.2 fL (80.0-98.0); Mean Platelet Volume 11.1 fL (9.4-12.4); Monocytes Percent Auto 7.8 % (2-11); Neutrophils Absolute Auto 8.5 x10*3/uL (2.0-8.3); Platelet Count 300 X10*3/uL (160-400); Red Blood Count 5.19 X10*6/uL (4.60-5.80); Red Cell Distribution Width 14.2 % (11.0-16.0); White Blood Count 12.5 X10*3/uL (4.8-10.8)
== END 2022-02-09 11:39 | disposition home or self-care (01) ==
LOC: HO.HMGCLDS 11:38
PROVIDERS: PCP Nurse Practitioner Family; Visit Provider Nurse Practitioner Family
DX: D72.829 Elevated white blood cell count, unspecified (principal)
CPT/HCPCS: 36415; 85025

== ENCOUNTER → 2022-02-10 13:34 | Outpatient (BNVA) | payer MEDICARE, MEDICAID, SELFPAY | PROVIDERS: PCP Nurse Practitioner Family; Visit Provider Nurse Practitioner Psychiatric/Mental Health | DX: F11.90 Opioid use, unspecified, uncomplicated (principal) | CPT/HCPCS: 80305; 99212 ==

== ENCOUNTER → 2022-02-18 11:45 | Outpatient (BNVA) | payer MEDICARE, MEDICAID, SELFPAY | PROVIDERS: PCP Nurse Practitioner Family; Visit Provider Nurse Practitioner Psychiatric/Mental Health | DX: F11.20 Opioid dependence, uncomplicated (principal) | CPT/HCPCS: 99212 ==

== ENCOUNTER → 2022-02-18 13:15 | Outpatient (BNVA) | payer MEDICARE, MEDICAID, SELFPAY | PROVIDERS: PCP Nurse Practitioner Family; Visit Provider Urology | DX: N31.9 Neuromuscular dysfunction of bladder, unspecified (principal) | CPT/HCPCS: 52287 ==

== ENCOUNTER → 2022-02-26 12:55 | Outpatient (BNVA) | payer MEDICARE, MEDICAID, SELFPAY | PROVIDERS: PCP Nurse Practitioner Family; Visit Provider Nurse Practitioner Psychiatric/Mental Health | DX: Z51.81 Encounter for therapeutic drug level monitoring (principal); F11.20 Opioid dependence, uncomplicated | CPT/HCPCS: 80305; 99212 ==

== ENCOUNTER → 2022-04-30 15:02 | Outpatient (BNVA) | payer MEDICARE, MEDICAID, SELFPAY | PROVIDERS: PCP Nurse Practitioner Family; Visit Provider Urology | DX: N31.9 Neuromuscular dysfunction of bladder, unspecified (principal) | CPT/HCPCS: 51798 ==

== ENCOUNTER → 2022-09-01 12:59 | Outpatient (BNVA) | payer MEDICARE, MEDICAID, SELFPAY | PROVIDERS: PCP Nurse Practitioner Family; Visit Provider Urology | DX: N52.9 Male erectile dysfunction, unspecified (principal); E23.0 Hypopituitarism | CPT/HCPCS: Q3014 ==

== ENCOUNTER 2022-09-10 22:52 | Emergency (ER) | payer MEDICARE, MEDICAID, SELFPAY ==
--- NOTE | 2022-09-10 23:17 | ED_ITS ---
HPI - General Adult General Chief complaint: ETOH/Substance Use Stated complaint: ETOH/lac on arm Time Seen by Provider: 09/10/22 23:11 Source: patient Mode of arrival: ambulatory Limitations: no limitations History of Present Illness HPI narrative: Patient came with laceration to left forearm as heavy rack fell on his left forearm while patient was coming out of the bar on arrival patient's blood pressure was noticed to be on the lower side 90/45 patient does have a history of hypertension take lisinopril and amlodipine denies any dizziness lightheadedness chest pain or palpitation patient is on Seroquel 200 mg daily was taking it when he was section until 2 months ago he did not take it for last 2 months today he saw the psychiatrist but did not tell her that he is not taking medication for 2 months who prescribed him Seroquel 200 mg which he took it earlier today. Related Data Home Medications Medication Instructions Recorded Confirmed carbidopa 25 mg-levodopa 250 mg 0.5 tab PO TID 03/27/20 09/01/22 tablet dextroamphetamine-amphetamine ER 1 cap PO QAM 04/24/20 09/01/22 20 mg 24hr capsule,extend release ziprasidone HCl 40 mg capsule 80 mg PO BID 04/07/21 09/01/22 clonazepam 1 mg tablet 1 mg PO TID PRN Sleep 07/15/21 09/01/22 tizanidine 4 mg tablet 4 mg PO TID PRN Muscle Spasm 11/05/21 09/01/22 cyclobenzaprine 5 mg tablet 1 tab PO BEDTIME PRN Pain 01/17/22 09/01/22 daridorexant 25 mg tablet (Quviviq) 1 tab PO DAILY PRN Sleep 01/17/22 09/01/22 divalproex 500 mg tablet,extended 250 mg PO DAILY 02/04/22 09/01/22 release 24 hr Previous Rx's Medication Instructions Recorded methenamine hippurate 1 gram tablet 1 g PO DAILY 90 days #90 tabs 01/05/21 haloperidol 5 mg tablet 5 mg PO BEDTIME PRN Insomnia #15 01/22/22 tabs multivitamin with minerals 1 cap PO DAILY #30 caps 01/22/22 naltrexone 50 mg tablet 50 mg PO DAILY #30 tabs 01/22/22 naltrexone microspheres 380 mg 380 mg IM Q4W #1 ea 01/22/22 intramuscular suspension,extended release (Vivitrol) nicotine (polacrilex) 4 mg buccal 4 mg buccal Q2H PRN Nicotine 01/22/22 lozenge Cravings #60 ea lactulose 10 gram/15 mL oral 15 ml PO DAILY PRN constipation 01/23/22 solution #946 mL omeprazole 20 mg capsule,delayed 40 mg PO DAILY #180 caps 01/25/22 release diazepam 5 mg tablet 5 mg PO ONCE PRN anxiety 1 day #1 02/10/22 tab sulfamethoxazole 800 1 tab PO BID 5 days #10 tabs 02/10/22 mg-trimethoprim 160 mg tablet (Bactrim DS) buprenorphine 4 mg-naloxone 1 mg 1 film buccal BID #14 ea 02/26/22 sublingual film (Suboxone) gabapentin 300 mg capsule 300 mg PO TID 30 days #90 caps 07/14/22 lisinopril 10 mg tablet 20 mg PO DAILY #90 tabs 07/26/22 sildenafil 100 mg tablet 100 mg PO DAILY PRN sexual 07/26/22 activity #30 tabs chorionic gonadotropin, human See Rx Instructions IM .COMPLEX 60 09/01/22 10,000 unit IM powder for solution days #2 ea tadalafil 10 mg tablet 10 mg PO DAILY sexual activity 90 09/01/22 days #90 tabs amlodipine 2.5 mg tablet 2.5 mg PO DAILY #90 tabs 09/06/22 cephalexin 500 mg capsule 500 mg PO QID 7 days #28 caps 09/11/22 Allergies Allergy/AdvReac Type Severity Reaction Status Date / Time No Known Allergies Allergy Verified 09/01/22 13:12 [No Known Allergies*] Review of Systems Review of Systems: Yes all other systems are reviewed and are negative PMFSH Past Medical History Medical History Anoxia of brain Anxiety Ataxia Bipolar 1 disorder BPH (benign prostatic hyperplasia) Hx of traumatic brain injury Leg pain, bilateral OAB (overactive bladder) Obstructive sleep apnea OCD (obsessive compulsive disorder) Overactive bladder Parkinsonism Polysubstance use disorder PSP (progressive supranuclear palsy) PTSD (post-traumatic stress disorder) Right foot drop Self-catheterizes urinary bladder Spasticity Surgical History History of esophagogastroduodenoscopy (EGD) Hx of cystoscopy Family History Family History Father Cancer Mother No problems noted. Social History Social History Household Members: None Housing: House Are you a primary youth care professional to a significant other at home: No Do you presently have visiting nurse or other home services: No Alcohol intake: never Patient Tobacco Use Status: Current everyday Tobacco user Tobacco use type: Cigarette Cigarette Packs Per Day: 1 Cigarettes Per Day: 10 Years Smoked: 15 e-Cigarette/Vaping Use: Currently Using Second Hand Smoke Exposure: No Substance Use Type: Marijuana Advance Directives: No Advance Directives Information Provided: No service: No Current occupational status: disabled Sexual orientation: Don't Know Physical Exam ED Vital Signs: Vital Signs - 24 hr 09/10/22 23:19 09/11/22 01:42 Temperature 98.4 F 98.3 F Pulse Rate 83 49 L Respiratory Rate 15 10 L Blood Pressure 90/45 L 104/60 Pulse Oximetry 93 97 Oxygen Delivery Method Room Air Room Air BMI result Body Mass Index 20.3 Appearance: Alert. Oriented X3. No acute distress sleepy. Eyes: PERRLA, ENT: Pharynx normal. Oral Mucosa moist Neck: Normal inspection. Neck supple. CVS: Normal heart rate and rhythm. Pulses normal. Respiratory: No respiratory distress. Equal air entry bilateral, no wheezing/rales/rhonchi Abdomen: Soft and nontender. Bowel sounds are present, no mass palpable, no CVA tenderness Skin: Skin warm and dry. Normal skin color. Normal skin turgor. Extremities: No lower extremity edema. No calf tenderness turn sent for long laceration left forearm Neuro: Oriented X 3. No motor deficit. No sensory deficit.No cerebellar signs , cranial nerves II-XII intact Medications Administered Generic Name Dose Route Start Last Admin Trade Name Freq PRN Reason Stop Dose Admin Sodium Chloride 1,000 mls @ 999 mls/hr 09/11/22 01:17 09/11/22 01:28 Ns IV 09/11/22 02:17 999 mls/hr .Q1H1M ONE Administration Discontinued Medications Generic Name Dose Route Start Last Admin Trade Name Freq PRN Reason Stop Dose Admin Bacitracin 2 appl 09/11/22 01:17 09/11/22 01:27 Bacitracin Oint 0.9 Gm Packet TOPICAL 09/11/22 01:18 2 appl ONCE ONE Administration Protocol Cephalexin HCl 500 mg 09/11/22 01:18 09/11/22 01:27 Cephalexin 500 Mg Capsule PO 09/11/22 01:19 500 mg ONCE ONE Administration Sodium Chloride 1,000 mls @ 999 mls/hr 09/10/22 23:17 09/10/22 23:31 Ns IV 09/11/22 00:17 999 mls/hr .Q1H1M ONE Administration Procedures Laceration Laceration 1: Site: upper extremity (Forearm) Side (If applicable): left Size (cm): 10 Description: irregular Depth: simple, single layer Local Anesthetic: lidocaine 1% Amount of anesthesia used (mL): 15 Skin layer closed with: nylon Size (cm): 5-0 Number of sutures: 6 Technique: simple, interrupted Subcutaneous layer closed with: vicryl Size: 5-0 Number of sutures: 3 Technique: simple, interrupted Medical Decision Making Medical Decision Making [facility] Narrative: Patient history of hypertension PTSD anxiety taking lisinopril and amlodipine came from laceration to left brow noticed a low blood pressure is symptomatic of hypertension no fever no signs of sepsis patient does have chronic leukocytosis will give patient IV fluids check urine drug screening. According to patient supposed to be on Seroquel 200 mg daily which he did not take it for last 2 months but did not tell his psychiatrist workup showed potassium of 3.2 otherwise labs were stable patient been very lethargic and sleepy likely the side effect of Seroquel EKG without prolongation of QT interval. Will watch patient in the ER until blood pressure improved Lab Data [facility] Lab Attestation statement: I reviewed the patient's lab results. 09/10/22 23:32 09/10/22 15:55 Labs: Lab Results 09/10/22 09/10/22 Range/Units 15:55 23:32 WBC 13.4 H (4.8-10.8) X10*3/uL RBC 4.56 L (4.60-5.80) X10*6/uL Hgb 12.6 L (14.0-18.0) g/dl Hct 36.9 L (42.0-52.0) % MCV 80.9 (80.0-98.0) fL MCH 27.6 (27.0-33.0) pg MCHC 34.1 (31.0-36.0) g/dl RDW 14.5 (11.0-16.0) % Plt Count 253 (160-400) X10*3/uL MPV 11.0 (9.4-12.4) fL Immature Gran % (Auto) 0.4 (0.0-0.4) % Neut % (Auto) 80.7 H (45-73) % Lymph % (Auto) 13.2 L (20-40) % [place] % (Auto) 4.7 (2-11) % Eos % (Auto) 0.8 (0-4) % Baso % (Auto) 0.2 (0-2) % Lymph # (Auto) 1.8 (1.2-4.9) X10*3/uL [place] # (Auto) 0.6 (0.1-1.2) X10*3/uL Eos # (Auto) 0.1 (0.0-0.4) X10*3/uL Baso # (Auto) 0.0 (0.0-0.2) X10*3/uL Abs Immat Gran (auto) 0.06 H (0.00-0.03) X10*3/uL Absolute Neuts (auto) 10.8 H (2.0-8.3) x10*3/uL Absolute Nucleated RBC 0.000 (0.0-0.012) X10*3/uL Nucleated RBC % (auto) 0.0 (0.0-0.2) /100WBC Sodium 141 (135-145) mmol/L Potassium 3.2 L D (3.3-5.1) mmol/L Chloride 104 (96-108) mmol/L Carbon Dioxide 26 (22-29) mmol/L Anion Gap 14 (12-20) BUN 13 (9-16) mg/dL Creatinine 0.81 (0.5-1.4) mg/dL Estim Creat Clear Calc 124.8 Estimated GFR > 60 Random Glucose 132 H (60-115) mg/dL Calcium 9.1 (8.4-10.2) mg/dL Magnesium 1.8 (1.6-2.6) mg/dL Total Bilirubin 0.5 (0.0-1.0) mg/dL AST 11 (5-37) U/L ALT 6 (0-40) U/L Alkaline Phosphatase 69 (39-117) U/L Total Protein 6.2 L (6.5-8.0) g/dL Albumin 4.1 (3.5-5.0) g/dL Ethyl Alcohol < 10 mg/dL Independent Interpretation I performed an independent interpretation of an: EKG Interpretation: Normal sinus rhythm heart rate 64 beats per minute normal interval normal axis no acute ST T wave changes Discharge Plan Discharge Clinical Impression: Laceration of forearm, Hypotension Patient Disposition: Still a Patient Instructions: Laceration (ED), Hypotension (ED) Additional Instructions: Do not take Seroquel without discussing with psychiatrist tomorrow as your blood pressure was low today Drink plenty of fluids Suture removal in 10 days Wound care as advised Take antibiotics to avoid infection Prescriptions: New cephalexin 500 mg capsule 500 mg PO QID 7 Days Qty: 28 0RF No Action methenamine hippurate 1 gram tablet 1 g PO DAILY 90 Days Qty: 90 3RF lactulose 10 gram/15 mL solution 15 ml PO DAILY PRN (Reason: constipation) Qty: 946 0RF omeprazole 20 mg capsule,delayed release(DR/EC) 40 mg PO DAILY Qty: 180 1RF diazepam 5 mg tablet 5 mg PO ONCE PRN (Reason: anxiety) 1 Days Qty: 1 0RF Rx Instructions: Take medication after arrival at office sulfamethoxazole-trimethoprim [Bactrim DS] 800-160 mg tablet 1 tab PO BID 5 Days Qty: 10 0RF Rx Instructions: begin taking 2 days prior to procedure: take one tab in AM and one tab in PM on Tuesday, Tuesday, , Tuesday and Tuesday lisinopril 10 mg tablet 20 mg PO DAILY Qty: 90 1RF sildenafil 100 mg tablet 100 mg PO DAILY PRN (Reason: sexual activity) Qty: 30 5RF Rx Instructions: administer 30 minutes to 4 hours before activity, not to exceed one dose daily amlodipine 2.5 mg tablet 2.5 mg PO DAILY Qty: 90 0RF carbidopa-levodopa 25-250 mg tablet 0.5 tab PO TID cyclobenzaprine 5 mg tablet 1 tab PO BEDTIME PRN (Reason: Pain) Quviviq 25 mg tablet 1 tab PO DAILY PRN (Reason: Sleep) nicotine (polacrilex) 4 mg Lozenge 4 mg buccal Q2H PRN (Reason: Nicotine Cravings) Qty: 60 0RF haloperidol 5 mg Tablet 5 mg PO BEDTIME PRN (Reason: Insomnia) Qty: 15 1RF multivitamin with minerals Capsule 1 cap PO DAILY Qty: 30 0RF divalproex 500 mg tablet extended release 24 hr 250 mg PO DAILY gabapentin 300 mg capsule 300 mg PO TID 30 Days Qty: 90 2RF ziprasidone HCl 40 mg capsule 80 mg PO BID dextroamphetamine-amphetamine 20 mg capsule,extended release 24hr 1 cap PO QAM clonazepam 1 mg tablet 1 mg PO TID PRN (Reason: Sleep) naproxen 500 mg tablet 500 mg PO ONCE Qty: 1 0RF nitrofurantoin monohyd/m-cryst 100 mg capsule 100 mg PO ONCE Qty: 1 0RF lidocaine HCl 2 % jelly in applicator 10 ml intra-urethral ONCE Qty: 10 0RF tizanidine 4 mg tablet 4 mg PO TID PRN (Reason: Muscle Spasm) naltrexone 50 mg tablet 50 mg PO DAILY Qty: 30 0RF Rx Instructions: take 1/2 tab daily for 3 days then increase to one tab daily Vivitrol 380 mg suspension,extended rel recon 380 mg IM Q4W Qty: 1 5RF buprenorphine-naloxone [Suboxone] 4-1 mg film 1 film buccal BID Qty: 14 0RF Rx Instructions: place 1 strip/tab under (each) side of tongue chorionic gonadotropin, human 10,000 unit recon soln See Rx Instructions IM .COMPLEX 60 Days Qty: 2 2RF Rx Instructions: - 0.5cc IM 2 x a week; dilute in 5 ml NS - injection should be 1000 units per injection tadalafil 10 mg tablet 10 mg PO DAILY 90 Days Qty: 90 1RF
[2022-09-10 23:19] VITALS: BP 100/48; BP 90/45; PULSE 110; PULSE 83; RESP 15; TEMP 36.9; O2SAT 93; O2SAT 95; BMI 20.3
[2022-09-10] MEDS: 0.9 % Sodium Chloride 1,000 ML 999 ML IV (23:31)
[2022-09-10 23:45] LABS: MANUAL DIFF FLAG NO
[2022-09-10 23:46] LABS: Basophils Percent Auto 0.2 % (0-2); Eosinophils Absolute Auto 0.1 X10*3/uL (0.0-0.4); Eosinophils Percent Auto 0.8 % (0-4); Hematocrit 36.9 % (42.0-52.0); Hemoglobin 12.6 g/dl (14.0-18.0); Imm Gran Abs Auto 0.06 X10*3/uL (0.00-0.03); Imm Gran Pct Auto 0.4 % (0.0-0.4); Lymphocytes Absolute Auto 1.8 X10*3/uL (1.2-4.9); Lymphocytes Percent Auto 13.2 % (20-40); Mean Corpuscular HGB Conc 34.1 g/dl (31.0-36.0); Mean Corpuscular Hemoglobin 27.6 pg (27.0-33.0); Mean Corpuscular Volume 80.9 fL (80.0-98.0); Monocytes Absolute Auto 0.6 X10*3/uL (0.1-1.2); Monocytes Percent Auto 4.7 % (2-11); Neutrophils Absolute Auto 10.8 x10*3/uL (2.0-8.3); Neutrophils Percent Auto 80.7 % (45-73); Platelet Count 253 X10*3/uL (160-400); Red Blood Count 4.56 X10*6/uL (4.60-5.80); Red Cell Distribution Width 14.5 % (11.0-16.0); White Blood Count 13.4 X10*3/uL (4.8-10.8)
[2022-09-11 00:01] LABS: Alanine Aminotransferase 6 U/L (0-40); Albumin Level 4.1 g/dL (3.5-5.0); Alkaline Phosphatase 69 U/L (39-117); Anion Gap 14 (12-20); Aspartate Amino Transferase 11 U/L (5-37); Bilirubin Total 0.5 mg/dL (0.0-1.0); Blood Urea Nitrogen 13 mg/dL (9-16); Calcium 9.1 mg/dL (8.4-10.2); Carbon Dioxide 26 mmol/L (22-29); Chloride 104 mmol/L (96-108); Creatinine Clr Calc Pharmacy 124.8; Estimated Glomerular Filt Rate > 60; Ethanol < 10 mg/dL; Glucose Random 132 mg/dL (60-115); Magnesium 1.8 mg/dL (1.6-2.6); Potassium 3.2 mmol/L (3.3-5.1); Sodium 141 mmol/L (135-145); Total Protein 6.2 g/dL (6.5-8.0)
--- NOTE | 2022-09-11 01:20 | ECG_ITS ---
Test Reason : HYPOTENSION Blood Pressure : / mmHG Vent. Rate : 064 BPM Atrial Rate : 064 BPM P-R Int : 154 ms QRS Dur : 084 ms QT Int : 414 ms P-R-T Axes : 071 026 036 degrees QTc Int : 427 ms Normal sinus rhythm with sinus arrhythmia Normal ECG When compared with ECG of 18-JAN-2022 12:45, T wave amplitude has decreased in Anterior leads Referred By: Moe Gonsales Electronically Signed By:FARIDA VOGEL
[2022-09-11] MEDS: Bacitracin Oint 0.9 GM PACKET 2 APPL TOPICAL (01:27)
[2022-09-11] MEDS: cephALEXin 500 MG CAPSULE PO (01:27)
[2022-09-11] MEDS: 0.9 % Sodium Chloride 1,000 ML 999 ML IV (01:28)
[2022-09-11 01:42] VITALS: BP 104/60; PULSE 49; RESP 10; TEMP 36.8; O2SAT 97
[2022-09-11] MEDS: Potassium Chloride/H20 10 MEQ/100 ML PIGGYBACK 100 MEQ IV (02:25)
[2022-09-11] MEDS: Lidocaine HCl 1 % MPF 5 ML VIAL 15 ML INFILTRATI (02:25)
[2022-09-11 02:32] VITALS: BP 94/53; PULSE 63; RESP 14; O2SAT 99
[2022-09-11 04:05] VITALS: BP 106/69; PULSE 45; RESP 13; O2SAT 97
[2022-09-11 04:36] VITALS: BP 99/60; PULSE 50; RESP 12; O2SAT 98
[2022-09-11 05:18] VITALS: BP 104/48; PULSE 55; RESP 12; O2SAT 97
== END 2022-09-11 06:37 | disposition home or self-care (01) ==
PROVIDERS: Emergency Provider Internal Medicine
DX: S51.812A Laceration without foreign body of left forearm, initial encounter (principal); F41.9 Anxiety disorder, unspecified; I95.9 Hypotension, unspecified; I49.8 Other specified cardiac arrhythmias; F17.210 Nicotine dependence, cigarettes, uncomplicated; W26.9XXA Contact with unspecified sharp object(s), initial encounter; Y93.9 Activity, unspecified; Y92.9 Unspecified place or not applicable; Y99.9 Unspecified external cause status; Z79.899 Other long term (current) drug therapy; Z71.6 Tobacco abuse counseling
CPT/HCPCS: 12004; 36415; 80053; 80307; 83735; 85025; 93005; 96361; 96365; 96366; 99285

== ENCOUNTER 2022-09-28 13:49 | Outpatient (AMB) | payer MEDICARE, MEDICAID, SELFPAY ==
--- NOTE | 2022-09-28 13:50 | AM.OFFWIN_ITS ---
Intake Vital Signs 09/28/22 13:54 Height 5 ft 11 in BP 132/70 Blood Pressure Location Rt brachial Position Sitting Pulse 97 Pulse Source Pulse Oximeter Temp 97.9 F Temp Source Temporal Artery Scan Pulse Oximetry (%) 97 Oxygen Delivery Method Room Air Intake Visit Reasons: EST/cut to right arm Intake Note: Pt is here c/o having a deep cut on his right arm. Patient Tobacco Use Status: Current everyday Tobacco user Allergies No Known Allergies [No Known Allergies*] Allergy (Verified 09/28/22 13:52) Do you need a note to return to daycare/school/sports/work: Yes HPI HPI Comments History of Present Illness Details 31-year-old male that presents for wound check. Patient was working and had metal tray fall on him. He was seen evaluated received stitches. His discharge paperwork advised him to follow up for wound check. He denies any fevers chills wound drainage other symptoms. FOR[facility]LY [facility], [facility] Medical History Anoxia of brain Anxiety Ataxia Bipolar 1 disorder BPH (benign prostatic hyperplasia) Hx of traumatic brain injury Leg pain, bilateral OAB (overactive bladder) Obstructive sleep apnea OCD (obsessive compulsive disorder) Overactive bladder Parkinsonism Polysubstance use disorder PSP (progressive supranuclear palsy) PTSD (post-traumatic stress disorder) Right foot drop Self-catheterizes urinary bladder Spasticity Surgical History History of esophagogastroduodenoscopy (EGD) Hx of cystoscopy Family History Father Cancer Mother No problems noted. Social History Household Members: None Housing: House Are you a primary family day care worker to a significant other at home: No Do you presently have visiting nurse or other home services: No Alcohol intake: current Alcohol intake frequency: a few times a week Alcohol type: beer Patient Tobacco Use Status: Current everyday Tobacco user Tobacco use type: Cigarette Cigarette Packs Per Day: 1 Cigarettes Per Day: 10 Years Smoked: 15 e-Cigarette/Vaping Use: Currently Using Second Hand Smoke Exposure: No Substance Use Type: Marijuana service: No Current occupational status: disabled Sexual orientation: Don't Know Review of Systems Skin/Breast Details: Scab on the left forearm. Physical Exam Vital Signs: Last Vital Signs Temp 97.9 F 09/28/22 13:54 Pulse 97 09/28/22 13:54 BP 132/70 09/28/22 13:54 Pulse Ox 97 09/28/22 13:54 Oxygen Delivery Method Room Air 09/28/22 13:54 Const General: cooperative, healthy appearing, comfortable, no acute distress, alert, awake and Physically active Skin Other: Left forearm with 1 to 1-1/2 inch healing laceration scabbed over. Minor erythema surrounding the scab. No purulent drainage or warmth Assessment & Plan Assessment & Plan (1) Visit for wound check: Code(s): Z51.89 - Encounter for other specified aftercare Plan 31-year-old male that presents for wound check VSS. Exam patient presents alert and oriented no acute distress. Exam is notable for 1-1/2 cm laceration scabbed over on the left forearm with minor erythema. No warmth or purulent drainage present. Discussed with patient at mild redness around the wound is consistent with normal granulation and healing. Discuss that if the redness spreads or develops fever or warmth in the arm that he should return for reassessment. Discharge instructions, follow up and treatment are discussed with patient in my usual fashion. Alternatives in treatment are also discussed. The patient will return for worsening symptoms or as needed. Advised that any labs/imaging ordered will be followed up on and contact made if further treatment needed. Counseled that patient's condition may require further evaluation and/or treatment. Symptoms of concern for worsening disorder discussed in detail in my customary manner. Patient does verbalize understanding of the plan, there are no apparent barriers to communication. The patient is given the opportunity to ask questions and have them answered to his/her satisfaction Patient Instructions: Your seen evaluated in the urgent care for a wound check. Your wound at the time consistent with normal healing tissue. If you experience any abnormal drainage foul-smelling drainage fever worsening redness please return for wound check. Coding Level of Care Code Est Pt Level 2 (12361) Diagnoses Visit for wound check Z51.89
[2022-09-28 13:54] VITALS: BP 132/70; PULSE 97; TEMP 36.6; O2SAT 97
== END 2022-09-28 14:05 | disposition home or self-care (01) ==
PROVIDERS: Visit Provider Physician Assistant
DX: Z51.89 Encounter for other specified aftercare (principal)
CPT/HCPCS: 99212

== ENCOUNTER → 2022-10-01 15:11 | Outpatient (BNVA) | payer MEDICARE, MEDICAID, SELFPAY | PROVIDERS: Visit Provider Urology ==

== ENCOUNTER 2022-10-05 13:05 | Emergency (ER) | payer MEDICARE, MEDICAID, SELFPAY ==
[2022-10-05 13:26] VITALS: BP 133/81; PULSE 74; RESP 18; TEMP 36.6; O2SAT 98; BMI 21.8
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
== END 2022-10-05 17:25 | disposition home or self-care (01) ==
PROVIDERS: Emergency Provider Student in an Organized Health Care Education/Training Program; PCP Nurse Practitioner Family
DX: Z76.0 Encounter for issue of repeat prescription (principal); F17.210 Nicotine dependence, cigarettes, uncomplicated; Z71.6 Tobacco abuse counseling; Z79.899 Other long term (current) drug therapy
CPT/HCPCS: 99282

== ENCOUNTER 2022-10-19 15:31 | Outpatient (AMB) | payer MEDICARE, MEDICAID, SELFPAY ==
[2022-10-19 15:33] VITALS: BP 120/86; PULSE 98; O2SAT 97; BMI 23.0
--- NOTE | 2022-10-19 15:33 | MHC.PC.OV ---
Vital Signs 10/19/22 15:33 Height 5 ft 11 in Weight 165 lb 4 oz BMI 23.0 BP 120/86 Blood Pressure Location Rt brachial Position Sitting Pulse 98 Pulse Source Pulse Oximeter Pulse Oximetry (%) 97 Oxygen Delivery Method Room Air Intake Visit Reasons: Annual PE Allergies No Known Allergies [No Known Allergies*] Allergy (Verified 10/19/22 15:46) Medication List - Last Reconciled 10/19/22 by BOB CasanovaP- amlodipine 2.5 mg PO DAILY chorionic gonadotropin, human - 0.5cc IM 2 x a week; dilute in 5 ml NS - injection should be 1000 units per injection 60 days clonazepam 1 mg PO TID PRN 2 days cyclobenzaprine 1 tab PO BEDTIME PRN daridorexant (Quviviq) 25 mg PO BEDTIME dextroamphetamine-amphetamine 20 mg (Adderall) 20 mg PO DAILY dextroamphetamine-amphetamine 20 mg ER 1 cap PO QAM gabapentin 300 mg PO TID 30 days lactulose 15 mL PO DAILY PRN lisinopril 20 mg (2 x 10 mg) PO DAILY meloxicam 15 mg PO DAILY 3 days multivitamin with minerals 1 cap PO DAILY omeprazole 40 mg (2 x 20 mg) PO DAILY quetiapine (Seroquel) 200 mg PO BEDTIME 2 days sildenafil 100 mg PO DAILY PRN tadalafil 10 mg PO DAILY 90 days tizanidine 4 mg PO TID PRN Tobacco use date assessed: 04/13/21 Dental Screening Dental Screen Date: 10/19/22 Did you have a dental visit in the last 12 months?: Yes Did you have a dental problem in the last 6 months where you did not have access to dental care?: No Was dental information given to patient?: Patient has dentist HPI Annual PE HPI Details Pt is here for a PE. Will order labs. [facility] Medical History Anoxia of brain Anxiety Ataxia Bipolar 1 disorder BPH (benign prostatic hyperplasia) Hx of traumatic brain injury Leg pain, bilateral OAB (overactive bladder) Obstructive sleep apnea OCD (obsessive compulsive disorder) Overactive bladder Parkinsonism Polysubstance use disorder PSP (progressive supranuclear palsy) PTSD (post-traumatic stress disorder) Right foot drop Self-catheterizes urinary bladder Spasticity Surgical History History of esophagogastroduodenoscopy (EGD) Hx of cystoscopy Family History Father Cancer Mother No problems noted. Social History Household Members: None Housing: House Are you a primary home health care case manager to a significant other at home: No Do you presently have visiting nurse or other home services: No Alcohol intake: current Alcohol intake frequency: a few times a week Alcohol type: beer Patient Tobacco Use Status: Current everyday Tobacco user Tobacco use type: Cigarette Cigarettes Per Day: 10 Years Smoked: 15 e-Cigarette/Vaping Use: Currently Using Second Hand Smoke Exposure: Yes Substance Use Type: Marijuana service: No Current occupational status: disabled Sexual orientation: Don't Know Cognitive needs: No Hearing needs: No Vision needs: No Questionnaire PHQ-9 Over the last 2 weeks, how often have you been bothered by any of the following problems? 1. Little interest or pleasure in doing things: not at all 2. Feeling down, depressed, or hopeless: not at all 3. Trouble falling or staying asleep, or sleeping too much: nearly every day 4. Feeling tired or having little energy: nearly every day 5. Poor appetite or overeating: not at all 6. Feeling bad about yourself - or that you are a failure or have let yourself or your family down: not at all 7. Trouble concentrating on things, such as reading the newspaper or watching television: more than half the days 8. Moving or speaking so slowly that other people could have noticed. Or the opposite - being so fidgety or restless that you have been moving around a lot more than usual: more than half the days 9. Thoughts that you would be better off or of hurting yourself in some way: not at all Total score: 10 Source: Developed by Drs. Demetrio Porter, Jolly Beverly, Elvis Woodruff and colleagues, with an educational paul from [employer]. Thrive Questionnaire Date Thrive assessed: 04/13/21 I am a: Patient What is your living situation today?: I have a steady place to live Within the past 12 months, did the food you bought not last and you didn't have the money to get more?: Never true Within the past 12 months, did you worry whether your food would run out before you got money to buy more?: Never true Do you have trouble paying for medicines?: No Do you have trouble getting transportation to medical appointments?: No Do you have trouble paying your heating and electricity bill?: No Do you have trouble taking care of your child, family member or friend?: No Do you have trouble with day-to-day activities such as bathing, preparing meals, shopping, managing finances, etc.?: No Are you currently unemployed and looking for a job?: No Are you interested in more education?: No Currently or been in a relationship where the following occur: no concerns reported AUDIT C Alcohol Use Questionnaire (AUDIT-C) 1. How often do you have a drink containing alcohol?: Never Total Score: 0 LYUBOV-7 AMB Questionnaire LYUBOV-7 Date LYUBOV - 7 assessed: 10/19/22 Feeling nervous, anxious, or on edge: 3 = Nearly every day Not being able to stop or control worryin = Not at all Worrying too much about different things: 0 = Not at all Trouble relaxin = Nearly every day Being so restless that it is hard to sit still: 1 = Several days Becoming easily annoyed or irritable: 0 = Not at all Feeling afraid as if something awful might happen: 0 = Not at all Total LYUBOV-7 score (0-4 normal; 5-9 mild; 10-14 moderate; 15-21 severe): 7 Source: Developed by Drs. Demetrio Porter, Jolly Beverly, Elvis Woodruff and colleagues, with an educational paul from [employer]. LYUBOV-7 Assessment Billing LYUBOV-7 Assessment Tool: LYUBOV-7 Assessment 57857 Review of Systems Const Denies chills and Denies fever(s) Eyes Denies blurry vision ENT Denies vertigo, Denies dizziness and Denies sore throat Card Denies chest pain at rest, Denies chest pain with activity, Denies diaphoresis, Denies dyspnea and Denies dyspnea on exertion Resp Denies cough, Denies dyspnea, Denies dyspnea on exertion and Denies wheezing GI Denies abdominal pain, Denies melena, Denies hematochezia, Denies constipation, Denies diarrhea and Denies loose stools Denies hematuria Musc Denies numbness and Denies tingling Skin/Breast Denies lesions Neuro Denies vertigo, Denies dizziness, Denies numbness and Denies tingling Psych Denies anxiety, Denies depression, Denies homicidal ideation, Denies suicidal ideation and Denies other (substance abuse) Aller/Immun Denies wheezing Physical exam (Primary Care) Vital Signs: Last Vital Signs Pulse 98 10/19/22 15:33 BP 120/86 10/19/22 15:33 Pulse Ox 97 10/19/22 15:33 Oxygen Delivery Method Room Air 10/19/22 15:33 BMI result Body Mass Index 23.0 Tobacco/Smoking Status: Tobacco use Status Tobacco use date assessed 04/13/21 10/19/22 15:43 Patient Tobacco Use Status Current everyday Tobacco 10/19/22 15:43 Tobacco use type Cigarette 10/19/22 15:43 e-Cigarette/Vaping Use Currently Using 10/19/22 15:43 Thrive Assessment: Date of Thrive Assessment Date Thrive assessed 04/13/21 10/19/22 15:43 Currently or been in a relationship where the following occur: no concerns reported Const General: cooperative Nutritional Appearance: well nourished Orientation/consciousness: patient oriented x3 HENMT Head: Yes normal to inspection, Yes normocephalic and Yes atraumatic Ears: TM's normal bilaterally Eyes General: appearance normal, both eyes and all related structures Alignment and Position: alignment normal and position normal Neck Neck: Yes normal visual inspection and Yes no lymphadenopathy Thyroid: Thyroid normal Resp Effort & Inspection: normal respiratory effort Auscultation: clear to auscultation bilaterally Cardio Rate: regular rate Rhythm: regular rhythm Heart sounds: S1 normal heart sound present, S2 normal heart sound present and no murmurs GI Palpation (GI): Soft to palpation and nontender Auscultation: normal bowel sounds Male General Exam: Yes normal external exam Penis: normal penis Scrotum: scrotum normal, testes descended bilaterally and no inguinal hernias Testes: no testicular mass Skin Rashes: no rashes Neuro General: patient oriented x3, moves all extremities, no focal motor deficits and deep tendon reflexes 2+ bilaterally Romberg Test: Negative Extrem Other: drop foot to right side, brace on Psych Appearance: grossly normal Mental Status: mental status grossly normal Speech and movement: Normal speech and movement present Affect: normal affect Attitude: cooperative Thought process: Normal thought process present Thought content: Normal thought content present Insight: Good insight present (Psych) Judgement: Good judgement present (Psych) Assessment and Plan Assessment & Plan (1) Physical exam: Code(s): Z00.00 - Encounter for general adult medical examination without abnormal findings Plan: Labs ordered Plan The patient agreed to the use of a chief medical technologist for this encounter. Scribed for MEENA Fregoso by Marleny Mccollum chief medical technologist, on 10/19/2022 at 15:45 EST. Orders: Orders Comprehensive [place]. Panel Fast Today Z00.00 - Encounter for general adult medical examination without abnormal findings Lipid Panel Today Z00.00 - Encounter for general adult medical examination without abnormal findings TSH reflex Free T4 Today Z00.00 - Encounter for general adult medical examination without abnormal findings Complete Blood Count Auto Diff Today Z00.00 - Encounter for general adult medical examination without abnormal findings UA CC w/rflx Micro + Cult Today Z00.00 - Encounter for general adult medical examination without abnormal findings Coding Level of Care Code Est Pt Prev Care 18-39y(08380) Diagnoses Physical exam Z00.00 Additional Codes LYUBOV-7 Assessment Billing - LYUBOV-7 Assessment Tool: LYUBOV-7 Assessment 61877 ([id number])
== END 2022-10-19 16:02 | disposition home or self-care (01) ==
PROVIDERS: Visit Provider Nurse Practitioner Family
DX: Z00.00 Encounter for general adult medical examination without abnormal findings (principal)
CPT/HCPCS: 99395

== ENCOUNTER 2022-10-28 06:46 | Outpatient (REF) | payer MEDICARE, MEDICAID, SELFPAY ==
[2022-10-28 11:33] LABS: MANUAL DIFF FLAG NO
[2022-10-28 11:34] LABS: Appearance Urine Clear; Color Urine Dark Yellow; Glucose Urine UA Negative (Negative); Leukocyte Esterase Urine Trace (Negative); Nitrite Urine Negative (Negative); Specific Gravity - Urine >= 1.030 (1.005-1.025); UMIC TRIGGER UACC YES; Urine Blood Negative (Negative); Urine Ketones Trace mg/dL (Negative); Urine Protein 30 (1+) mg/dL (Neg-Trace)
[2022-10-28 11:47] LABS: Bacteria Urine None Seen (None Seen); WBC Urine 0-5 /HPF (0-5)
[2022-10-28 11:59] LABS: Basophils Percent Auto 0.3 % (0-2); Eosinophils Percent Auto 0.5 % (0-4); Hematocrit 39.5 % (42.0-52.0); Hemoglobin 13.3 g/dl (14.0-18.0); Imm Gran Abs Auto 0.05 X10*3/uL (0.00-0.03); Imm Gran Pct Auto 0.6 % (0.0-0.4); Lymphocytes Absolute Auto 1.7 X10*3/uL (1.2-4.9); Mean Corpuscular HGB Conc 33.7 g/dl (31.0-36.0); Mean Corpuscular Hemoglobin 28.7 pg (27.0-33.0); Mean Corpuscular Volume 85.1 fL (80.0-98.0); Mean Platelet Volume 11.3 fL (9.4-12.4); Monocytes Absolute Auto 0.9 X10*3/uL (0.1-1.2); Monocytes Percent Auto 9.9 % (2-11); Neutrophils Percent Auto 68.7 % (45-73); Platelet Count 287 X10*3/uL (160-400); Red Blood Count 4.64 X10*6/uL (4.60-5.80); Red Cell Distribution Width 14.6 % (11.0-16.0); White Blood Count 8.7 X10*3/uL (4.8-10.8)
[2022-10-28 12:50] LABS: Alanine Aminotransferase 9 U/L (0-40); Albumin Level 4.6 g/dL (3.5-5.0); Alkaline Phosphatase 86 U/L (39-117); Anion Gap 12 (12-20); Aspartate Amino Transferase 15 U/L (5-37); Bilirubin Total 0.4 mg/dL (0.0-1.0); Blood Urea Nitrogen 14 mg/dL (9-16); Calcium 9.3 mg/dL (8.4-10.2); Carbon Dioxide 28 mmol/L (22-29); Chloride 109 mmol/L (96-108); Cholesterol 140 mg/dL; Estimated Glomerular Filt Rate > 60; Glucose Fasting 117 mg/dL (60-99); HDL Cholesterol 39 mg/dL; LDL Cholesterol Calculated 84 mg/dl; Potassium 3.4 mmol/L (3.3-5.1); Sodium 146 mmol/L (135-145); TSH reflex Free T4 2.38 uIU/mL (0.32-4.0); Total Protein 7.3 g/dL (6.5-8.0); Triglycerides 89 mg/dL
== END 2022-10-28 06:47 | disposition home or self-care (01) ==
LOC: HO.HMGCLDS 06:46
PROVIDERS: PCP Nurse Practitioner Family; Visit Provider Nurse Practitioner Family
DX: Z00.00 Encounter for general adult medical examination without abnormal findings (principal); G47.33 Obstructive sleep apnea (adult) (pediatric); I10 Essential (primary) hypertension; F41.9 Anxiety disorder, unspecified; E03.9 Hypothyroidism, unspecified
CPT/HCPCS: 36415; 80053; 80061; 81001; 84443; 85025

== ENCOUNTER 2022-11-06 15:26 | Emergency (ER) | payer MEDICARE, MEDICAID, SELFPAY ==
[2022-11-06 15:42] VITALS: BP 127/80; BP 152/96; PULSE 83; PULSE 88; RESP 18; TEMP 36.5; O2SAT 100; O2SAT 99; BMI 22.3
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
[2022-11-06 16:09] LABS: Appearance Urine Clear; Color Urine Yellow; Glucose Urine UA Negative (Negative); Leukocyte Esterase Urine Negative (Negative); Nitrite Urine Negative (Negative); UMIC TRIGGER UACC YES; Urine Blood Trace (Negative); Urine Ketones Negative (Negative); Urine Protein 30 (1+) mg/dL (Neg-Trace)
[2022-11-06 16:13] LABS: Bacteria Urine None Seen (None Seen); Hyaline Casts Urine 0-2 /LPF (0-2); WBC Urine 0-5 /HPF (0-5)
[2022-11-06 16:16] LABS: Amphetamine Screen Urine POSITIVE (Not Detect); Barbiturates, Urine Not Detected (Not Detect); Benzodiazepines Screen Urine Not Detected (Not Detect); Cannabinoid Screen Urine POSITIVE (Not Detect); Cocaine Screen Urine POSITIVE (Not Detect); Opiate Screen Urine Not Detected (Not Detect); Phencyclidine Screen Urine POSITIVE (Not Detect)
[2022-11-06 16:30] LABS: MANUAL DIFF FLAG NO
[2022-11-06 16:51] LABS: Acetaminophen LAB < 17 mcg/mL (<30); Alanine Aminotransferase 10 U/L (0-40); Albumin Level 4.6 g/dL (3.5-5.0); Alkaline Phosphatase 85 U/L (39-117); Anion Gap 14 (12-20); Aspartate Amino Transferase 16 U/L (5-37); Bilirubin Total 0.6 mg/dL (0.0-1.0); Blood Urea Nitrogen 14 mg/dL (9-16); Calcium 9.4 mg/dL (8.4-10.2); Carbon Dioxide 27 mmol/L (22-29); Chloride 103 mmol/L (96-108); Creatinine Clr Calc Pharmacy 138.2; Estimated Glomerular Filt Rate > 60; Ethanol < 10 mg/dL; Glucose Random 98 mg/dL (60-115); Potassium 3.8 mmol/L (3.3-5.1); Salicylate < 5.0 mg/dL (15-30); Sodium 140 mmol/L (135-145); Total Protein 7.2 g/dL (6.5-8.0)
[2022-11-06 16:59] LABS: Basophils Percent Auto 0.2 % (0-2); Eosinophils Absolute Auto 0.1 X10*3/uL (0.0-0.4); Eosinophils Percent Auto 0.7 % (0-4); Hemoglobin 13.4 g/dl (14.0-18.0); Imm Gran Abs Auto 0.09 X10*3/uL (0.00-0.03); Imm Gran Pct Auto 0.5 % (0.0-0.4); Lymphocytes Absolute Auto 1.5 X10*3/uL (1.2-4.9); Lymphocytes Percent Auto 8.2 % (20-40); Mean Corpuscular HGB Conc 34.4 g/dl (31.0-36.0); Mean Corpuscular Hemoglobin 28.3 pg (27.0-33.0); Mean Corpuscular Volume 82.3 fL (80.0-98.0); Mean Platelet Volume 10.5 fL (9.4-12.4); Monocytes Absolute Auto 1.2 X10*3/uL (0.1-1.2); Monocytes Percent Auto 6.3 % (2-11); Neutrophils Absolute Auto 15.5 x10*3/uL (2.0-8.3); Neutrophils Percent Auto 84.1 % (45-73); Platelet Count 273 X10*3/uL (160-400); Red Blood Count 4.74 X10*6/uL (4.60-5.80); Red Cell Distribution Width 14.3 % (11.0-16.0); White Blood Count 18.4 X10*3/uL (4.8-10.8)
[2022-11-06 17:04] LABS: Prothrombin Time 12.4 SEC (11.1-13.3)
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
[2022-11-06 17:59] VITALS: BP 126/66; PULSE 89; RESP 16; TEMP 36.7; O2SAT 98
--- NOTE | 2022-11-06 18:45 | PC.NURSE ---
Star was tx from main ED. He has been engaging in self dialogue, was observed yelling at the mirror in the bathroom and having some agitation.
--- NOTE | 2022-11-06 20:23 | MHC.CARE ---
Contacted [facility]ASS[facility] regarding the transport of patient. There was no section 12 in paperwork. Called to confirm if patient came voluntarily. There was no coresponse and patient they report came voluntarily. No section 12 completed by PD.
[2022-11-07 12:56] LABS: Fentanyl, urine SEE COMMENTS (Not Detect)
[2022-11-11 10:11] LABS: Norfentanyl, Ur NEGATIVE
[2022-11-26 12:27] LABS: Fentanyl, Ur NEGATIVE
== END 2022-11-06 22:39 | disposition home or self-care (01) ==
PROVIDERS: Emergency Provider Emergency Medicine
DX: R41.82 Altered mental status, unspecified (principal); F19.10 Other psychoactive substance abuse, uncomplicated; R29.6 Repeated falls; F31.9 Bipolar disorder, unspecified; F43.10 Post-traumatic stress disorder, unspecified; Z87.820 Personal history of traumatic brain injury; F17.210 Nicotine dependence, cigarettes, uncomplicated; Z87.440 Personal history of urinary (tract) infections; Z79.899 Other long term (current) drug therapy
CPT/HCPCS: 36415; 80053; 80143; 80179; 80307; 80354; 81001; 81003; 85025; 85610; 99284; 99285

== ENCOUNTER 2022-11-07 15:38 | Emergency (ER) | payer MEDICARE, MEDICAID, SELFPAY ==
[2022-11-07 15:44] VITALS: BP 125/74; BP 130/72; PULSE 90; PULSE 95; RESP 18; TEMP 36.7; O2SAT 98; O2SAT 99; BMI 23.0
[2022-11-07 20:06] VITALS: BP 141/81; PULSE 88; RESP 18; TEMP 36.6; O2SAT 98
[2022-11-07 22:48] VITALS: RESP 13
--- NOTE | 2022-11-07 23:38 | PC.NURSE ---
Assumed care of pt.
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
[2022-11-08] VITALS: BP 126/67; PULSE 69; RESP 18; TEMP 36.8; O2SAT 99
[2022-11-08] MEDS: TiZANidine HCL 4 MG TABLET PO (00:41)
[2022-11-08] MEDS: lisinopriL 10 MG TABLET PO (00:42)
[2022-11-08] MEDS: amLODIPine Besylate 2.5 MG TABLET PO (00:42)
--- NOTE | 2022-11-08 00:47 | PC.NURSE ---
pt feels ready for discharge all questions answered, alert oriented x3 steady gait. calm and cooperative.
== END 2022-11-08 00:49 | disposition home or self-care (01) ==
PROVIDERS: Emergency Provider Internal Medicine
DX: F41.9 Anxiety disorder, unspecified (principal); I10 Essential (primary) hypertension; F17.210 Nicotine dependence, cigarettes, uncomplicated; F12.90 Cannabis use, unspecified, uncomplicated; Z76.0 Encounter for issue of repeat prescription; Z71.6 Tobacco abuse counseling; Z79.899 Other long term (current) drug therapy
CPT/HCPCS: 99284

== ENCOUNTER 2022-11-11 08:23 | Emergency (ER) | payer MEDICARE, MEDICAID, SELFPAY ==
[2022-11-11 08:31] VITALS: BP 140/80; PULSE 105; PULSE 77; RESP 16; TEMP 36.6; O2SAT 98; BMI 22.8
--- NOTE | 2022-11-11 08:48 | ED_ITS ---
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 Reports taking his home meds this morning and immediately vomiting them up, admits to 7 episodes of vomiting with associated diffuse abdominal discomfort secondary to wretching. Last BM was 2 days ago and states that is baseline for him. Currently nauseous in ED. He was last seen in our ED 5 days ago for acute polysubstance intoxication and AMS and d/c home. Denies illicit drug or etoh use. Denies fev er/ chills, CP, SOB, constipation or diarrhea, hematemesis, or hematochezia. MD elicited complaint: nausea, vomiting and abdominal pain Pertinent past history: other (opioid use disorder) Onset (ago): hour(s) Associated nausea: Yes Associated abdominal pain: Yes Location of pain: diffuse Exacerbating factors: eating and medication Related Data Home Medications Medication Instructions Recorded Confirmed amlodipine 2.5 mg tablet 2.5 mg PO DAILY 11/06/22 11/06/22 clonazepam 1 mg tablet 1 mg PO TID PRN anxiety 11/06/22 11/06/22 daridorexant 50 mg tablet (Quviviq) 50 mg PO DAILY 11/06/22 11/06/22 dextroamphetamine-amphetamine ER 1 cap PO QAM 11/06/22 11/06/22 20 mg 24hr capsule,extend release gabapentin 300 mg capsule 300 mg PO TID 11/06/22 11/06/22 lisinopril 10 mg tablet 10 mg PO BID 11/06/22 11/06/22 quetiapine 50 mg tablet 100 mg PO BEDTIME 11/06/22 11/06/22 sildenafil 100 mg tablet 100 mg PO DAILY PRN Sexual Activity 11/06/22 11/06/22 Previous Rx's Medication Instructions Recorded amlodipine 2.5 mg tablet 2.5 mg PO DAILY #30 tabs 11/08/22 lisinopril 10 mg tablet 10 mg PO BID #60 tabs 11/08/22 ondansetron 4 mg disintegrating 4 mg PO Q8H PRN nausea and 11/11/22 tablet vomiting #5 tabs Allergies Allergy/AdvReac Type Severity Reaction Status Date / Time No Known Allergies Allergy Verified 10/20/22 15:34 [No Known Allergies*] Review of Systems Review of Systems: Constitutional: No Fever, No Chills ENT/Mouth: No sore throat, No Rhinorrhea, No Swallowing Difficulty Eyes: No Eye Pain, No Swelling, No Redness Cardiovascular: No Chest Pain, No SOB, No Orthopnea, No Edema Respiratory: No Cough, No Sputum, No Wheezing, No dyspnea Gastrointestinal: + Nausea, + Vomiting, No Diarrhea, + abdominal Pain, No Hematochezia, No Melena Genitourinary: No Dysuria, No Urinary Frequency, No Hematuria Musculoskeletal: No joint pain, No Myalgias Skin: No Skin Lesions, No rash Neuro: No Weakness, No Numbness, No Dizziness, No Headache Psych: No Anxiety/Panic, No Depression Yes all other systems are reviewed and are negative Gastrointestinal: Gastrointestinal: Reports nausea PMFSH Past Medical History Attestation statement: The following information was validated with the patient. Source: old records reviewed and nursing notes reviewed Medical History Anoxia of brain Anxiety Ataxia Bipolar 1 disorder BPH (benign prostatic hyperplasia) Hx of traumatic brain injury Leg pain, bilateral OAB (overactive bladder) Obstructive sleep apnea OCD (obsessive compulsive disorder) Overactive bladder Parkinsonism Polysubstance use disorder PSP (progressive supranuclear palsy) PTSD (post-traumatic stress disorder) Right foot drop Self-catheterizes urinary bladder Spasticity Surgical History History of esophagogastroduodenoscopy (EGD) Hx of cystoscopy Family History Family History Father Cancer Mother No problems noted. Social History Social History Household Members: None Housing: House Are you a primary care management specialist to a significant other at home: No Do you presently have visiting nurse or other home services: No Alcohol intake: current Alcohol intake frequency: a few times a week Alcohol type: beer Patient Tobacco Use Status: Current everyday Tobacco user Tobacco use type: Cigarette Cigarettes Per Day: 10 Years Smoked: 15 e-Cigarette/Vaping Use: Currently Using Second Hand Smoke Exposure: Yes Substance Use Type: Marijuana Advance Directives: No Advance Directives Information Provided: Yes service: No Current occupational status: disabled Sexual orientation: Don't Know Cognitive needs: No Hearing needs: No Vision needs: No Physical Exam Vital Signs: Vital Signs: Last Vital Signs Temp 98.4 F 11/11/22 10:27 Pulse 90 11/11/22 10:27 Resp 14 11/11/22 10:27 BP 130/69 11/11/22 10:27 Pulse Ox 99 11/11/22 10:27 O2 Del Method Room Air 11/11/22 10:27 BMI result Body Mass Index 22.8 Appearance: Alert. Oriented X3. No acute distress. Head: normocephalic, atraumatic. Eyes: Pupils equal, round and reactive to light. ENT: Pharynx normal. No tonsillar swelling or exudate. Neck: Normal inspection. Neck supple. CVS: Normal heart rate and rhythm. Pulses normal. Respiratory: No respiratory distress. Breath sounds normal. Abdomen: Soft and nontender. +BS x4. Multiple small ecchymosis on abdomen in different stages of healing, suspicion for medication/substance injections Skin: Skin warm and dry. Normal skin color. Normal skin turgor. No rashes. Extremities: No lower extremity edema. No joint swelling. Neuro/psych: Oriented X 3. No motor deficit. No sensory deficit. CN II-XII intact. Normal speech and cognition. Course Course Course Narrative: 1002-- cbc without infection or anemia. UA without infection. UDS positive for polysubstance use including fentanyl, PCP, cocaine, and THC. Chemistry and ethanol pending. 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 Vital signs stable, afebrile. Exam significant for healing ecchymosis to abdomen, otherwise unremarkable. Abdomen soft, nonTTP, non distended. Plan: labs, UA, UDS labs unremarkable. Utox positive for fentanyl, PCP, cocaine and THC. patient counseled on drug use. he claims he does not remember using drugs due to his TBI. denied need for recovery or detox. tolerating PO. stable for d/c home Differential Diagnosis Differential Diagnoses: The differential diagnosis associated with the presenta tion includes GERD, gastritis, gastroenteritis, viral syndrome, SBO, constipation, polys ubstance use Admission/Observation Consideration of admission/observation: Escalation of care including admission/observation considered Lab Data [facility] Lab Attestation statement: I reviewed the patient's lab results. no metabolic derranagment, no leukocytosis 11/11/22 09:29 11/11/22 09:29 Labs: Lab Results 11/11/22 11/11/22 11/11/22 Range/Units 09:01 09:01 09:29 WBC 9.8 (4.8-10.8) X10*3/uL RBC 5.25 (4.60-5.80) X10*6/uL Hgb 14.8 (14.0-18.0) g/dl Hct 43.3 (42.0-52.0) % MCV 82.5 (80.0-98.0) fL MCH 28.2 (27.0-33.0) pg MCHC 34.2 (31.0-36.0) g/dl RDW 13.2 (11.0-16.0) % Plt Count 341 (160-400) X10*3/uL MPV Not Reportable Immature Gran % (Auto) 0.4 (0.0-0.4) % Neut % (Auto) 79.2 H (45-73) % Lymph % (Auto) 11.6 L (20-40) % [place] % (Auto) 7.9 (2-11) % Eos % (Auto) 0.6 (0-4) % Baso % (Auto) 0.3 (0-2) % Lymph # (Auto) 1.1 L (1.2-4.9) X10*3/uL [place] # (Auto) 0.8 (0.1-1.2) X10*3/uL Eos # (Auto) 0.1 (0.0-0.4) X10*3/uL Baso # (Auto) 0.0 (0.0-0.2) X10*3/uL Abs Immat Gran (auto) 0.04 H (0.00-0.03) X10*3/uL Absolute Neuts (auto) 7.8 (2.0-8.3) x10*3/uL Absolute Nucleated RBC 0.000 (0.0-0.012) X10*3/uL Nucleated RBC % (auto) 0.0 (0.0-0.2) /100WBC Smear Tech's Comments VERIFIED Sodium (135-145) mmol/L Potassium (3.3-5.1) mmol/L Chloride (96-108) mmol/L Carbon Dioxide (22-29) mmol/L Anion Gap (12-20) BUN (9-16) mg/dL Creatinine (0.5-1.4) mg/dL Estim Creat Clear Calc Estimated GFR Random Glucose (60-115) mg/dL Calcium (8.4-10.2) mg/dL Magnesium (1.6-2.6) mg/dL Total Bilirubin (0.0-1.0) mg/dL Direct Bilirubin (0.0-0.5) mg/dL AST (5-37) U/L ALT (0-40) U/L Alkaline Phosphatase (39-117) U/L Total Protein (6.5-8.0) g/dL Albumin (3.5-5.0) g/dL Urine Color Dark Yellow Urine Appearance Clear Urine pH 6.0 (5.0-9.0) Ur Specific [place] 1.020 (1.005-1.025) Urine Protein Trace (Neg-Trace) mg/dL Urine Glucose (UA) Negative (Negative) mg/dL Urine Ketones 40 (Negative) mg/dL Urine Blood Negative (Negative) Urine Nitrite Negative (Negative) Ur Leukocyte Esterase Negative (Negative) Urine Opiates Screen Not Detected (Not Detect) Urine Fentanyl Screen POSITIVE H (Not Detect) Ur Barbiturates Screen Not Detected (Not Detect) Ur Phencyclidine Scrn POSITIVE H (Not Detect) Ur Amphetamines Screen Not Detected (Not Detect) U Benzodiazepines Scrn Not Detected (Not Detect) Urine Cocaine Screen POSITIVE H (Not Detect) U Marijuana (THC) Screen POSITIVE H (Not Detect) Ethyl Alcohol mg/dL 11/11/22 Range/Units 09:29 WBC (4.8-10.8) X10*3/uL RBC (4.60-5.80) X10*6/uL Hgb (14.0-18.0) g/dl Hct (42.0-52.0) % MCV (80.0-98.0) fL MCH (27.0-33.0) pg MCHC (31.0-36.0) g/dl RDW (11.0-16.0) % Plt Count (160-400) X10*3/uL MPV Immature Gran % (Auto) (0.0-0.4) % Neut % (Auto) (45-73) % Lymph % (Auto) (20-40) % [place] % (Auto) (2-11) % Eos % (Auto) (0-4) % Baso % (Auto) (0-2) % Lymph # (Auto) (1.2-4.9) X10*3/uL [place] # (Auto) (0.1-1.2) X10*3/uL Eos # (Auto) (0.0-0.4) X10*3/uL Baso # (Auto) (0.0-0.2) X10*3/uL Abs Immat Gran (auto) (0.00-0.03) X10*3/uL Absolute Neuts (auto) (2.0-8.3) x10*3/uL Absolute Nucleated RBC (0.0-0.012) X10*3/uL Nucleated RBC % (auto) (0.0-0.2) /100WBC Smear Tech's Comments Sodium 138 (135-145) mmol/L Potassium 4.2 (3.3-5.1) mmol/L Chloride 95 L (96-108) mmol/L Carbon Dioxide 29 (22-29) mmol/L Anion Gap 18 (12-20) BUN 13 (9-16) mg/dL Creatinine 0.84 (0.5-1.4) mg/dL Estim Creat Clear Calc 131.4 Estimated GFR > 60 Random Glucose 107 (60-115) mg/dL Calcium 10.1 D (8.4-10.2) mg/dL Magnesium 2.1 (1.6-2.6) mg/dL Total Bilirubin 1.2 H (0.0-1.0) mg/dL Direct Bilirubin 0.4 (0.0-0.5) mg/dL AST 32 (5-37) U/L ALT 19 (0-40) U/L Alkaline Phosphatase 85 (39-117) U/L Total Protein 8.4 H (6.5-8.0) g/dL Albumin 4.9 (3.5-5.0) g/dL Urine Color Urine Appearance Urine pH (5.0-9.0) Ur Specific [place] (1.005-1.025) Urine Protein (Neg-Trace) mg/dL Urine Glucose (UA) (Negative) mg/dL Urine Ketones (Negative) mg/dL Urine Blood (Negative) Urine Nitrite (Negative) Ur Leukocyte Esterase (Negative) Urine Opiates Screen (Not Detect) Urine Fentanyl Screen (Not Detect) Ur Barbiturates Screen (Not Detect) Ur Phencyclidine Scrn (Not Detect) Ur Amphetamines Screen (Not Detect) U Benzodiazepines Scrn (Not Detect) Urine Cocaine Screen (Not Detect) U Marijuana (THC) Screen (Not Detect) Ethyl Alcohol < 10 mg/dL Independent Historian Clinical information obtained from an independent historian. History obtained from or confirmed by: EMS External Record Review External record reviewed: Inpatient record Tests considered The following testing was considered but not selected: considered CT scan of the abd but his exam was unremarkable Prescription Management I considered prescription management with: Other (antiemetic ) Chronic Conditions Patient?s care impacted by: Other (polysubstance abuse, TBI) Social Determinants Patient?s care significantly limited by Social Determinants of Health including: Inadequate housing Critical Care Time Critical Care Time Critical Care Time: No Discharge Plan Discharge Clinical Impression: Polysubstance abuse Patient Disposition: Home, Self-Care Instructions: Polysubstance Abuse (ED) Additional Instructions: Your lab workup today was normal Your urine toxicology was positive for fentanyl, PCP, cocaine and marijuana. This is what most likely caused your vomiting today Do not use drugs, they can kill you Recommend detox Take the prescribed nausea medication as needed If you develop new or worsening symptoms call 911 or come back to the ER for further evaluation. Prescriptions: New ondansetron 4 mg tablet,disintegrating 4 mg PO Q8H PRN (Reason: nausea and vomiting) Qty: 5 0RF No Action amlodipine 2.5 mg tablet 2.5 mg PO DAILY Qty: 30 0RF lisinopril 10 mg tablet 10 mg PO BID Qty: 60 0RF quetiapine 50 mg tablet 100 mg PO BEDTIME Quviviq 50 mg tablet 50 mg PO DAILY clonazepam 1 mg tablet 1 mg PO TID PRN (Reason: anxiety) sildenafil 100 mg tablet 100 mg PO DAILY PRN (Reason: Sexual Activity) dextroamphetamine-amphetamine 20 mg capsule,extended release 24hr 1 cap PO QAM lisinopril 10 mg tablet 10 mg PO BID gabapentin 300 mg capsule 300 mg PO TID amlodipine 2.5 mg tablet 2.5 mg PO DAILY Referrals: [facility] [Provider Group]
[2022-11-11 09:16] LABS: Appearance Urine Clear; Color Urine Dark Yellow; Glucose Urine UA Negative (Negative); Leukocyte Esterase Urine Negative (Negative); Nitrite Urine Negative (Negative); Urine Blood Negative (Negative); Urine Ketones 40 mg/dL (Negative); Urine Protein Trace mg/dL (Neg-Trace)
[2022-11-11 09:27] LABS: Amphetamine Screen Urine Not Detected (Not Detect); Barbiturates, Urine Not Detected (Not Detect); Benzodiazepines Screen Urine Not Detected (Not Detect); Cannabinoid Screen Urine POSITIVE (Not Detect); Cocaine Screen Urine POSITIVE (Not Detect); Fentanyl, urine POSITIVE (Not Detect); Opiate Screen Urine Not Detected (Not Detect); Phencyclidine Screen Urine POSITIVE (Not Detect)
[2022-11-11 09:39] LABS: Basophils Percent Auto 0.3 % (0-2); Imm Gran Abs Auto 0.04 X10*3/uL (0.00-0.03); Imm Gran Pct Auto 0.4 % (0.0-0.4); MANUAL DIFF FLAG SCAN; PLT CLUMP 1; Red Blood Count 5.25 X10*6/uL (4.60-5.80); Red Cell Distribution Width 13.2 % (11.0-16.0); SCAN SMEAR FLAG 1
[2022-11-11 09:41] LABS: Eosinophils Absolute Auto 0.1 X10*3/uL (0.0-0.4); Eosinophils Percent Auto 0.6 % (0-4); Hematocrit 43.3 % (42.0-52.0); Hemoglobin 14.8 g/dl (14.0-18.0); Lymphocytes Absolute Auto 1.1 X10*3/uL (1.2-4.9); Lymphocytes Percent Auto 11.6 % (20-40); Mean Corpuscular HGB Conc 34.2 g/dl (31.0-36.0); Mean Corpuscular Hemoglobin 28.2 pg (27.0-33.0); Mean Corpuscular Volume 82.5 fL (80.0-98.0); Monocytes Absolute Auto 0.8 X10*3/uL (0.1-1.2); Monocytes Percent Auto 7.9 % (2-11); Neutrophils Absolute Auto 7.8 x10*3/uL (2.0-8.3); Neutrophils Percent Auto 79.2 % (45-73)
[2022-11-11 09:45] LABS: White Blood Count 9.8 X10*3/uL (4.8-10.8)
[2022-11-11 10:01] LABS: Platelet Count 341 X10*3/uL (160-400); SLIDE REVIEW VERIFIED
[2022-11-11] MEDS: 0.9 % Sodium Chloride 1,000 ML 999 ML IVCONT (10:01)
[2022-11-11] MEDS: ondansetron HCL 4 MG/2 ML VIAL IVPUSH (10:01)
[2022-11-11 10:14] LABS: Alanine Aminotransferase 19 U/L (0-40); Albumin Level 4.9 g/dL (3.5-5.0); Alkaline Phosphatase 85 U/L (39-117); Anion Gap 18 (12-20); Aspartate Amino Transferase 32 U/L (5-37); Bilirubin Direct 0.4 mg/dL (0.0-0.5); Bilirubin Total 1.2 mg/dL (0.0-1.0); Blood Urea Nitrogen 13 mg/dL (9-16); Calcium 10.1 mg/dL (8.4-10.2); Carbon Dioxide 29 mmol/L (22-29); Chloride 95 mmol/L (96-108); Creatinine Clr Calc Pharmacy 131.4; Estimated Glomerular Filt Rate > 60; Ethanol < 10 mg/dL; Glucose Random 107 mg/dL (60-115); Magnesium 2.1 mg/dL (1.6-2.6); Potassium 4.2 mmol/L (3.3-5.1); Sodium 138 mmol/L (135-145); Total Protein 8.4 g/dL (6.5-8.0)
[2022-11-11 10:27] VITALS: BP 130/69; PULSE 90; RESP 14; TEMP 36.9; O2SAT 99
== END 2022-11-11 11:37 | disposition home or self-care (01) ==
PROVIDERS: Physician Assistant; Emergency Provider Emergency Medicine
DX: F19.10 Other psychoactive substance abuse, uncomplicated (principal); R11.2 Nausea with vomiting, unspecified; I10 Essential (primary) hypertension; G20 Parkinson's disease; F17.210 Nicotine dependence, cigarettes, uncomplicated; Z79.899 Other long term (current) drug therapy
CPT/HCPCS: 36415; 80048; 80076; 80307; 81003; 83735; 85025; 96374; 99284; J2405

== ENCOUNTER 2023-06-18 15:04 | Emergency (ER) | payer MEDICARE, MEDICAID, SELFPAY ==
[2023-06-18 15:10] VITALS: BP 140/90; PULSE 118; O2SAT 97
[2023-06-18 15:24] VITALS: BP 133/71; PULSE 107; RESP 16; TEMP 36.6; O2SAT 100; BMI 28.6
--- NOTE | 2023-06-18 15:55 | ED.GENADULT ---
HPI - General Adult General Chief complaint: Fall Stated complaint: AMS Time Seen by Provider: 06/18/23 15:49 Source: patient and EMS Mode of arrival: EMS Limitations: no limitations History of Present Illness HPI narrative: Patient is a 32 year old assigned male at with a history of TBI, polysubstance abuse / use, and anxiety presenting to the emergency department today after a fall. Patient states that he has history of TBI and falls all the time but today his step dad demanded he come to the ER. Patient states that he was just at [facility] last night / yesterday for the same falls and he does not want any treatment or examination today. Patient denies any dizziness, lightheadedness, abdominal pain, nausea, vomiting, fever, chills, blurry vision, double vision, loss of vision, chest pain, difficulty breathing, shortness of breath, back pain, night sweats, pain with urination, increased urinary frequency, increased urinary urgency, blood in his urine or stool, syncope or a near syncopal episode, bowel incontinence, bladder incontinence, bowel retention, bladder retention, or any other complaints at this time. Relieving factors: none Exacerbating factors: none Associated symptoms: denies other symptoms Treatments prior to arrival: none Related Data Home Medications Medication Instructions Recorded Confirmed clonazepam 1 mg tablet 1 mg PO TID PRN anxiety 11/06/22 11/06/22 daridorexant 50 mg tablet (Quviviq) 50 mg PO DAILY 11/06/22 11/06/22 dextroamphetamine-amphetamine ER 1 cap PO QAM 11/06/22 11/06/22 20 mg 24hr capsule,extend release quetiapine 50 mg tablet 100 mg PO BEDTIME 11/06/22 11/06/22 sildenafil 100 mg tablet 100 mg PO DAILY PRN Sexual Activity 11/06/22 11/06/22 Previous Rx's Medication Instructions Recorded ondansetron 4 mg disintegrating 4 mg PO Q8H PRN nausea and 11/11/22 tablet vomiting #5 tabs chorionic gonadotropin, human See Rx Instructions IM .COMPLEX 60 12/02/22 10,000 unit IM powder for solution days #2 ea amlodipine 2.5 mg tablet 2.5 mg PO DAILY #90 tabs 02/05/23 gabapentin 300 mg capsule 300 mg PO TID 30 days #90 caps 02/14/23 magnesium oxide 400 mg PO BID 90 days #180 tabs 03/07/23 omeprazole 40 mg capsule,delayed 40 mg PO DAILY 90 days #90 caps 03/29/23 release lisinopril 10 mg tablet 10 mg PO BID 90 days #180 tabs 04/26/23 Allergies Allergy/AdvReac Type Severity Reaction Status Date / Time No Known Allergies Allergy Verified 10/20/22 15:34 [No Known Allergies*] Review of Systems Constitutional: Constitutional: Reports no additional constitutional complaints, Denies chills, Denies fever(s), Reports frequent falls (chronic for the patient) and Denies night sweats Eyes: Eyes: Reports no additional eye complaints, Denies blurry vision, Denies change in vision, Denies diplopia, Denies eye discharge, Denies loss of vision and Denies eye pain ENT: Denies dizziness Cardiovascular: Cardiovascular: Reports no additional cardiovascular complaints, Denies chest pain, Denies lightheadedness, Denies Loss of Consciousness and Denies dyspnea Respiratory: Respiratory: Reports no additional respiratory complaints and Denies dyspnea Gastrointestinal: Gastrointestinal: Reports no additional gastrointestinal complaints, Denies abdominal pain, Denies melena, Denies hematochezia, Denies change in bowel habits and Denies change in stool character Genitourinary: Genitourinary: Reports no additional male genitourinary complaints, Denies hematuria, Denies oliguria, Denies difficulty urinating, Denies dysuria, Denies urinary frequency, Denies urinary hesitancy, Denies urinary incontinence and Denies urinary urgency Musculoskeletal: Musculoskeletal: Reports no additional musculoskeletal complaints, Denies numbness and Denies tingling Neurologic: Denies dizziness, Reports frequent falls (chronic for the patient), Denies loss of vision, Denies numbness and Denies tingling Psychiatric: Psychiatric: Reports no additional psychiatric complaints Endocrine: Endocrine: Reports no additional endocrine complaints Hematologic/Lymphatic: Hematologic/Lymphatic: Reports no additional hematologic/lymphatic complaints Allergic/Immunologic: Allergic/Immunologic: Reports no additional allergic/immunologic complaints PMFSH Past Medical History Attestation statement: The following information was validated with the patient. Source: old records reviewed and nursing notes reviewed Medical History Right foot drop Leg pain, bilateral Polysubstance use disorder PTSD (post-traumatic stress disorder) Ataxia Anoxia of brain Bipolar 1 disorder PSP (progressive supranuclear palsy) Parkinsonism OAB (overactive bladder) Self-catheterizes urinary bladder Anxiety OCD (obsessive compulsive disorder) Hx of traumatic brain injury BPH (benign prostatic hyperplasia) Spasticity Obstructive sleep apnea Overactive bladder Surgical History Hx of cystoscopy History of esophagogastroduodenoscopy (EGD) Family History Family History Father Cancer Mother No problems noted. Social History Social History Household Members: None Housing: House Are you a primary post acute care registered nurse to a significant other at home: No Do you presently have visiting nurse or other home services: No Alcohol intake: current Alcohol intake frequency: a few times a week Alcohol type: beer Comment: medicated, see MAR Patient Tobacco Use Status: Current everyday Tobacco user Tobacco use type: Cigarette Cigarettes Per Day: 10 Years Smoked: 15 e-Cigarette/Vaping Use: Currently Using Second Hand Smoke Exposure: Yes Substance Use Type: Marijuana Advance Directives: No Advance Directives Information Provided: No service: No Current occupational status: disabled Sexual orientation: Don't Know Cognitive needs: No Hearing needs: No Vision needs: No Physical Exam ED Vital Signs: Vital Signs - 24 hr 06/18/23 15:24 Temperature 97.8 F Pulse Rate 107 H Respiratory Rate 16 Blood Pressure 133/71 Pulse Oximetry 100 Oxygen Delivery Method Room Air BMI result Body Mass Index 28.6 Const General: cooperative, no acute distress, alert and awake Nutritional Appearance: well nourished Orientation/consciousness: patient oriented x3 Limitations: no limitations HENMT Ears: hearing grossly normal bilaterally and external ears normal General nose exam: Normal external nose present, no nasal discharge noted and no epistaxis Face and sinus: Yes abrasion (to the base of the lateral left eye, no eye involvment) and No laceration Mouth: Normal oral and palatal mucosa present, no drooling and no muffled voice Eyes General: appearance normal, both eyes and all related structures Periorbital: periorbital findings normal Eyelids: Yes eyelids normal Conjunctivae: conjunctivae normal Pupils: Equal, round and reactive pupils present EOM: EOMs intact bilaterally Neck Neck: Yes normal visual inspection, Yes full ROM and Yes no lymphadenopathy Chest Chest palpation & inspection: normal inspection of the chest Resp Effort & Inspection: normal respiratory effort and able to speak in complete sentences GI Inspection: Yes normal to inspection Neuro General: patient oriented x3 and moves all extremities Cranial nerves: Yes Equal, round and reactive pupils present Cognition (Neuro): normal cognition Motor exam (neuro): 5/5 motor strength present throughout Sensory Exam: Normal double simultaneous stimulation for sensation Coordination: [id number] test normal Extrem Other: minimal swelling to the left hand with 2 small abrasions minimal swelling to the left knee with a small abrasion General: Yes full ROM and Yes capillary refill normal Psych Appearance: grossly normal Mental Status: mental status grossly normal Affect: normal affect Attitude: cooperative Thought process: Normal thought process present Thought content: Normal thought content present Insight: Good insight present (Psych) Medical Decision Making Medical Decision Making MDM Narrative: Patient is a 32 year old assigned male at with a history of TBI, polysubstance abuse, and anxiety presenting to the emergency department today after a fall. Patient's physical exam was as noted in the physical exam portion of this note and consistent with a fall. Patient AOx4 and refusing any additional testing. Patient stated he does not want to stay here and does not want any imaging done on anything. Patient states that [facility] checked him out last night and he doesn't need it again . I called and spoke with the patient's mother who immediately began yelling he (Star) is not to come back to my house because I am getting a section 35 on him in 3 days. You have to keep him there and make him get treatment or he can go on the streets . I explained to the patient's mother that the patient is alert, oriented, and has the right to refuse treatment. I explained to the patient's mother that I cannot violate the patient's right to leave or his right to refuse treatment. The patient then called his mother and ultimately, he decided he wanted to leave. I again confirmed the patient is alert, oriented, and appropriate for discharge. Patient is steady on his feet and is continually requesting to leave. I requested to charge the patient's phone so that he wouldn't be discharged with no means of communication. Patient consented to that and waited patiently while his phone charged. I explained my physical exam findings to the patient. I answered all questions asked by the patient. I stressed the importance of the patient taking his medication as prescribed. I stressed the importance of the patient following up with his primary care provider. I stressed the importance of the patient returning to the emergency department immediately if his symptoms were to worsen or if he were to develop any dizziness, shortness of breath, difficulty breathing, chest pain, blurry vision, loss of vision, nausea, vomiting, abdominal pain, fever, chills, back pain, or any other complaints. Patient verbalized agreement and understanding with this treatment plan and discharge. Patient remains resting comfortably in the department is free to leave whenever he chooses to do so. Patient continues to decline any imaging. Patient will remain in physician observation until he awakes. Differential Diagnosis Differential Diagnoses: The differential diagnosis associated with the presentation includes Fall Abrasion Intoxication Drug use Alcohol use Admission/Observation Consideration of admission/observation: Escalation of care including admission/observation considered Patient would have been admitted to the hospital had his clinical presentation warranted hospital admission and he hadn't requested to leave. Independent Historian Clinical information obtained from an independent historian. History obtained from or confirmed by: Parent (patient's mother provided additional history and confirmed the history provided by the patient.) and EMS (EMS provided additional history and confirmed the history provided by the patient) Tests considered The following testing was considered but not selected: CT of the head, neck, and facial bones, x-ray of the left hand and left knee were all considered given the patient's recent fall however, the patient declined to have any of these done. Discharge Plan Discharge Clinical Impression: Fall Patient Disposition: Still a Patient Instructions: Fall Prevention (ED) Additional Instructions: Follow up with your primary care provider. Return to the emergency department immediately if your symptoms worsen or if you develop any dizziness, shortness of breath, difficulty breathing, chest pain, blurry vision, loss of vision, nausea, vomiting, abdominal pain, fever, chills, back pain, or any other complaints. Prescriptions: No Action chorionic gonadotropin, human 10,000 unit recon soln See Rx Instructions IM .COMPLEX 60 Days Qty: 2 2RF Rx Instructions: - 0.5cc IM 2 x a week; dilute in 5 ml NS - injection should be 1000 units per injection amlodipine 2.5 mg tablet 2.5 mg PO DAILY Qty: 90 1RF gabapentin 300 mg capsule 300 mg PO TID 30 Days Qty: 90 3RF magnesium oxide 400 mg magnesium tablet 400 mg PO BID 90 Days Qty: 180 2RF omeprazole 40 mg capsule,delayed release(DR/EC) 40 mg PO DAILY 90 Days Qty: 90 0RF lisinopril 10 mg tablet 10 mg PO BID 90 Days Qty: 180 1RF quetiapine 50 mg tablet 100 mg PO BEDTIME Quviviq 50 mg tablet 50 mg PO DAILY clonazepam 1 mg tablet 1 mg PO TID PRN (Reason: anxiety) sildenafil 100 mg tablet 100 mg PO DAILY PRN (Reason: Sexual Activity) dextroamphetamine-amphetamine 20 mg capsule,extended release 24hr 1 cap PO QAM ondansetron 4 mg tablet,disintegrating 4 mg PO Q8H PRN (Reason: nausea and vomiting) Qty: 5 0RF Referrals: Edmond Murillo, RAP ARTIST-BC [Primary Care Provider] - Print Language: Guyanese
--- NOTE | 2023-06-18 21:18 | PC.NURSE ---
Pt attempting to get out of bed stating im going home Pt redirected back into bed. Pt requested and given drink. Plan of care ongoing.
[2023-06-19 06:09] VITALS: BP 113/82; PULSE 96; RESP 16; TEMP 37.1; O2SAT 100
[2023-06-19 06:10] VITALS: BP 113/82; PULSE 96; RESP 16; TEMP 37.1; O2SAT 96
== END 2023-06-19 06:27 | disposition home or self-care (01) ==
PROVIDERS: Emergency Provider Emergency Medicine Emergency Medical Services; PCP Nurse Practitioner Family
DX: Z04.3 Encounter for examination and observation following other accident (principal); Z91.81 History of falling; Z87.820 Personal history of traumatic brain injury
CPT/HCPCS: 99282; 99284

== ENCOUNTER 2023-07-01 14:10 | Outpatient (AMB) | payer MEDICARE, MEDICAID, SELFPAY ==
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
== END 2023-07-01 14:24 | disposition left against medical advice (07) ==
LOC: HO.HUSH 14:10
PROVIDERS: PCP Nurse Practitioner Family; Visit Provider Urology
DX: E23.0 Hypopituitarism (principal)
CPT/HCPCS: 99442

== ENCOUNTER → 2023-07-01 14:10 | Outpatient (BNVA) | payer MEDICARE, MEDICAID, SELFPAY | PROVIDERS: PCP Nurse Practitioner Family; Visit Provider Urology ==

== ENCOUNTER → 2024-01-16 16:39 | Outpatient (AMB) | payer MEDICARE, MEDICAID, SELFPAY ==
--- NOTE | 2024-01-16 16:47 | A.OFFVIS_ITS ---
Intake Visit Reasons: Flu shot Allergies No Known Allergies [No Known Allergies*] Allergy (Verified 10/20/22 15:34) PFSH Medical History Right foot drop Leg pain, bilateral Polysubstance use disorder PTSD (post-traumatic stress disorder) Ataxia Anoxia of brain Bipolar 1 disorder PSP (progressive supranuclear palsy) Parkinsonism OAB (overactive bladder) Self-catheterizes urinary bladder Anxiety OCD (obsessive compulsive disorder) Hx of traumatic brain injury BPH (benign prostatic hyperplasia) Spasticity Obstructive sleep apnea Overactive bladder Surgical History Hx of cystoscopy History of esophagogastroduodenoscopy (EGD) Family History Father Cancer Mother No problems noted. Social History Household Members: None Housing: House Are you a primary pharmacist critical care to a significant other at home: No Do you presently have visiting nurse or other home services: No Alcohol intake: current Alcohol intake frequency: a few times a week Alcohol type: beer Comment: medicated, see MAR Patient Tobacco Use Status: Current everyday Tobacco user Tobacco use type: Cigarette Cigarettes Per Day: 10 Years Smoked: 15 e-Cigarette/Vaping Use: Currently Using Second Hand Smoke Exposure: Yes Substance Use Type: Marijuana service: No Current occupational status: disabled Sexual orientation: Don't Know Cognitive needs: No Hearing needs: No Vision needs: No Office Procedures Flu Questionnaire Does the patient have a severe egg allergy?: No Does the patient have severe life threatening allergies?: No Does the patient have a fever or illness today?: No Has the patient ever had Guillain-[place] Syndrome?: No Has the patient ever had any past reaction to a flu shot?: No Immunizations Fluarix Triv [id number] (PF) 45 mcg (15 mcg x 3)/0.5 mL IM syringe Performing Provider: MEENA Casanova Performing Location: [facility] Administered by: Nubia Hi on 01/16/24 16:50 Dose Route Admin Location Dispensed Lot Number Expiration Date [facility] Control System Computer Scientist 0.5 mL IM Right Deltoid 0.5 mL [id number] 09/17/24 70301-173-10 Glokalise VIS Given Date VIS Provided VIS Publication Date 01/16/24 Single Vaccine 20 Eligibility Eligibility Date Funding Source Not VFC Eligible 01/16/24 Private Assessment & Plan Assessment & Plan Orders: Orders Influenza [id number] Immunization Today Z23 - Encounter for immunization Medications: New Fluarix Triv [id number] (PF) (flu vacc [id number] 6mos up(PF)) 0.5 mL IM ONCE 0.5 mL 0RF NS Z23 - Encounter for immunization Coding
== END ==
LOC: HO.HMCC 16:39
PROVIDERS: PCP Nurse Practitioner Family; Visit Provider Nurse Practitioner Family
DX: Z23 Encounter for immunization (principal)

== ENCOUNTER → 2024-01-16 16:39 | Outpatient (BNVA) | payer MEDICARE, MEDICAID, SELFPAY | PROVIDERS: PCP Nurse Practitioner Family; Visit Provider Nurse Practitioner Family | DX: Z23 Encounter for immunization (principal) | CPT/HCPCS: 90471; 90656 ==

== ENCOUNTER 2024-02-10 14:55 | Outpatient (AMB) | payer MEDICARE, MEDICAID, SELFPAY ==
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
== END 2024-02-10 15:35 | disposition home or self-care (01) ==
PROVIDERS: PCP Nurse Practitioner Family; Visit Provider Urology
DX: N31.9 Neuromuscular dysfunction of bladder, unspecified (principal); N52.9 Male erectile dysfunction, unspecified
CPT/HCPCS: 99214

== ENCOUNTER → 2024-02-10 14:55 | Outpatient (BNVA) | payer MEDICARE, MEDICAID, SELFPAY | PROVIDERS: PCP Nurse Practitioner Family; Visit Provider Urology | DX: N31.9 Neuromuscular dysfunction of bladder, unspecified (principal); N52.9 Male erectile dysfunction, unspecified | CPT/HCPCS: 99212 ==

== ENCOUNTER 2024-04-09 12:04 | Day surgery (SDC) | payer MEDICARE, MEDICAID, SELFPAY ==
--- OUTSIDE RECORDS SUMMARY | 2024-04-02 19:20 | XMS_ITS | Clinical Summary ---
Author Organization Unknown Care Team Providers Care Clinical Laboratory Medical Director Name Role Phone RAJEEV SALAZAR, MOSES Unavailable Unavailable JAI RN, CANDELARIA Unavailable Unavailable CE RN, VERA Unavailable Unavailable IRENE PROFILE MILL OPERATOR TAPE CONTROL, BRIDGET Unavailable Unavailable Payers Payer Name Policy Type Policy Number Effective Date Expira tion Date [place] [id number] ON DEMAND MEDICARE - [facility] BILL[facility] - ABN [id number] Problems Condition Name Condition Details Condition Category Status Onset Date Resolution Date Last Treatment Date Treating Clinician Comments BIPOLAR DISORD, CRNT EPSD DEPRESS, SEV, W/O PSYCH FEATURES Active 11-25 00:00: 00 OTHER PSYCHOACTIVE SUBSTANCE ABUSE, UNCOMPLICATE D Active 2022-03 00:00: 00 PERSONAL HISTORY OF TRAUMATIC BRAIN INJURY Active 2022-03 00:00: 00 Allergies, Adverse Reactions, Alerts Allergy Name Allergy Type Status Severity Reaction(s) Onset Date Inactive Date Treating Clinician Comments NKA Propensity to adverse reactions Active 2022-12 06:01:5 2 Medications Ordered Medication Name Filled Medication Name Start Date Stop Date Current Medication? Ordering Clinician Indication Dosage Frequency Signature (SIG) Comments Components amitriptyli ne 25 mg tablet 2022-03 00:00: 00 Yes [id number] 25 mg BEDTIME 25 mg BEDTIME (route: oral) Med Classific ation: Central Nervous System Agents amlodipine 2.5 mg tablet 2022-03 00:00: 00 Yes [id number] 2.5 mg DAILY 2.5 mg DAILY (route: oral) Med Classific ation: Cardiovas cular Therapy Agents bisacodyl 5 mg tablet,diana yed release 2022-03 00:00: 00 02-15 23:59 :00 No [id number] 5 mg DAILY 5 mg DAILY (route: oral) Med Classific ation: Gastroint estinal Therapy Agents carbidopa 25 mg-levodopa 100 mg tablet 2022-03 0- 00:00: 00 Yes [id number] 1 tablet 3 TIMES DAILY 1 tablet 3 TIMES DAILY (route: oral) Med Classific ation: Central Nervous System Agents cyclobenzap rine 10 mg tablet 2022-03 00:00: 00 01-14 23:59 :00 No [id number] 10 mg DAILY 10 mg DAILY (route: oral) Med Classific ation: Locomotor System docusate sodium 100 mg capsule 2022-03 00:00: 00 02-15 23:59 :00 No [id number] 100 mg 2 TIMES DAILY 100 mg 2 TIMES DAILY (route: oral) Med Classific ation: Gastroint estinal Therapy Agents duloxetine 20 mg capsule,del ayed release 2022-03 00:00: 00 02-15 23:59 :00 No [id number] 20 mg 2 TIMES DAILY 20 mg 2 TIMES DAILY (route: oral) Med Classific ation: Central Nervous System Agents gabapentin 100 mg capsule 2022-03 00:00: 00 Yes [id number] 100 mg 3 TIMES DAILY 100 mg 3 TIMES DAILY (route: oral) Med Classific ation: Central Nervous System Agents gabapentin 400 mg capsule 2022-03 00:00: 00 Yes [id number] 400 mg 3 TIMES DAILY 400 mg 3 TIMES DAILY (route: oral) Med Classific ation: Central Nervous System Agents haloperidol 10 mg tablet 2022-03 00:00: 00 Yes [id number] 10 mg BEDTIME 10 mg BEDTIME (route: oral) Med Classific ation: Central Nervous System Agents lactulose 10 gram/15 mL oral solution 2022-03 00:00: 00 Yes [id number] 10 g DAILY 10 g WES Y (route: oral) Med Classific ation: Gastroint estinal Therapy Agents lamotrigine 100 mg tablet 2022-03 00:00: 00 Yes [id number] 100 mg DAILY 100 mg DAILY (route: oral) Med Classific ation: Central Nervous System Agents lisinopril 10 mg tablet 2022-03 00:00: 00 Yes [id number] 10 mg DAILY 10 mg DAILY (route: oral) Med Classific ation: Cardiovas cular Therapy Agents magnesium oxide 400 mg (241.3 mg magnesium) tablet 2022-03 0 00:00: 00 Yes [id number] 400 mg 2 TIMES DAILY 400 mg 2 TIMES DAILY (route: oral) Med Classific ation: Electroly te Balance-N utritiona l Products Nicorette 2 mg gum 2022-03 00:00: 00 02-15 23:59 :00 No [id number] 2 mg EVERY 8 HOURS 2 mg EVERY 8 HOURS (route: buccal) Med Classific ation: Chemical Dependenc y, Agents to Treat omeprazole 40 mg capsule,del ayed release 2022-03 00:00: 00 Yes [id number] 40 mg DAILY 40 mg DAILY (route: oral) Med Classific ation: Gastroint estinal Therapy Agents quetiapine 25 mg tablet 2022-03 00:00: 00 Yes [id number] 25 mg 2 TIMES DAILY 25 mg 2 TIMES DAILY (route: oral) Med Classific ation: Central Nervous System Agents quetiapine 400 mg tablet 2022-03 00:00: 00 Yes [id number] 400 mg BEDTIME 400 mg BEDTIME (route: oral) Med Classific ation: Central Nervous System Agents baclofen 20 mg tablet 2022-03 00:00: 00 05-02 23:59 :00 No [id number] 1 tablet 2 TIMES DAILY 1 tablet 2 TIMES DAILY (route: oral) Med Classific ation: Locomotor System bisacodyl 5 mg tablet,diana yed release 2022-03 00:00: 00 Yes [id number] 1 tablet NEEDED 1 tablet NEEDED (route: oral) Med Classific ation: Gastroint estinal Therapy Agents docusate sodium 100 mg capsule 2022-03 00:00: 00 Yes [id number] 1 capsule NEEDED 1 capsule NEEDED (route: oral) Med Classific ation: Gastroint estinal Therapy Agents duloxetine 30 mg capsule,del ayed release 2- 00:00: 00 Yes [id number] 1 capsule EVERY AM 1 capsule EVERY AM (route: oral) Med Classific ation: Central Nervous System Agents Vital Signs Vital Name Observation Time Observation Value Commen ts Pulse 2023-06-20 14:22:00.000 80 /min Pulse 2023-06-13 08:48:00.000 86 /min Pulse 2023-06-08 20:10:00.000 76 /min Pulse 2023-05-18 12:33:00.000 62 /min Pulse 2023-05-16 16:42:00.000 80 /min Respirations 2023-06-20 14:22:00.000 18 /min Respirations 2023-06-16 18:58:00.000 18 /min Respirations 2023-06-13 08:48:00.000 18 /min Respirations 2023-06-09 08:10:00.000 18 /min Respirations 2023-06-08 20:10:00.000 18 /min Respirations 2023-06-06 09:23:00.000 18 /min Respirations 2023-05-23 09:09:00.000 18 /min Respirations 2023-05-20 07:44:00.000 18 /min Respirations 2023-05-18 12:33:00.000 16 /min Respirations 2023-05-17 08:14:00.000 18 /min Respirations 2023-05-16 16:42:00.000 18 /min Respirations 2023-05-11 13:28:00.000 16 /min Respirations 2023-05-09 22:36:00.000 18 /min Systolic Blood Pressure 2023-06-20 14:22:00.000 130 mm [Hg] Systolic Blood Pressure 2023-06-16 18:58:00.000 122 mm [Hg] Systolic Blood Pressure 2023-06-13 08:48:00.000 120 mm [Hg] Systolic Blood Pressure 2023-06-09 08:10:00.000 130 mm [Hg] Systolic Blood Pressure 2023-06-08 20:10:00.000 124 mm [Hg] Systolic Blood Pressure 2023-06-06 09:23:00.000 118 mm [Hg] Systolic Blood Pressure 2023-05-30 08:58:00.000 118 mm [Hg] Systolic Blood Pressure 2023-05-27 20:46:00.000 118 mm [Hg] Systolic Blood Pressure 2023-05-24 20:18:00.000 118 mm [Hg] Systolic Blood Pressure 2023-05-23 09:09:00.000 122 mm [Hg] Systolic Blood Pressure 2023-05-20 07:44:00.000 120 mm [Hg] Systolic Blood Pressure 2023-05-18 12:33:00.000 124 mm [Hg] Systolic Blood Pressure 2023-05-17 08:14:00.000 120 mm [Hg] Systolic Blood Pressure 2023-05-16 16:42:00.000 122 mm [Hg] Systolic Blood Pressure 2023-05-11 13:28:00.000 122 mm [Hg] Systolic Blood Pressure 2023-05-09 22:36:00.000 124 mm [Hg] Diastolic Blood Pressure 2023-06-20 14:22:00.000 80 mm [Hg] Diastolic Blood Pressure 2023-06-16 18:58:00.000 64 mm [Hg] Diastolic Blood Pressure 2023-06-13 08:48:00.000 70 mm [Hg] Diastolic Blood Pressure 2023-06-09 08:10:00.000 70 mm [Hg] Diastolic Blood Pressure 2023-06-08 20:10:00.000 60 mm [Hg] Diastolic Blood Pressure 2023-06-06 09:23:00.000 70 mm [Hg] Diastolic Blood Pressure 2023-05-30 08:58:00.000 64 mm [Hg] Diastolic Blood Pressure 2023-05-27 20:46:00.000 70 mm [Hg] Diastolic Blood Pressure 2023-05-24 20:18:00.000 84 mm [Hg] Diastolic Blood Pressure 2023-05-23 09:09:00.000 62 mm [Hg] Diastolic Blood Pressure 2023-05-20 07:44:00.000 70 mm [Hg] Diastolic Blood Pressure 2023-05-18 12:33:00.000 60 mm [Hg] Diastolic Blood Pressure 2023-05-17 08:14:00.000 80 mm [Hg] Diastolic Blood Pressure 2023-05-16 16:42:00.000 60 mm [Hg] Diastolic Blood Pressure 2023-05-11 13:28:00.000 64 mm [Hg] Diastolic Blood Pressure 2023-05-09 22:36:00.000 60 mm [Hg] Plan of Treatment Planned Activity Planned Date Details Comments Future Scheduled Test SKILLED NU RSE TO EVALUATE PATIENT, IDENTIFY PRIMARY AND CO-MORBID CONDITIONS CODED PER CODING GUIDELINES, AND DEVELOP PATIENT SPECIFIC PLAN OF CARE THAT INCLUDES PATIENT GOAL FOR HOME HEALTH. [code = SKILLED NURSE TO EVALUATE PATIENT, IDENTIFY PRIMARY AND CO-MORBID CONDITIONS CODED PER CODING GUIDELINES, AND DEVELOP PATIENT SPECIFIC PLAN OF CARE THAT INCLUDES PATIENT GOAL FOR HOME HEALTH.] Future Scheduled Test SKILLED NU RSE TO O/A OF PATIENTS MENTAL/BEHAVIORAL STATUS, ASSESS VITAL SIGNS MONTHLY AND PRN ALLOW 2 PRNS FOR MEDICATION MANAGEMENT. [code = SKILLED NURSE TO O/A OF PATIENTS MENTAL/BEHAVIORAL STATUS, ASSESS VITAL SIGNS MONTHLY AND PRN ALLOW 2 PRNS FOR MEDICATION MANAGEMENT.] Future Scheduled Test SKILLED NU RSE WILL MAINTAIN SITUATIONAL AWARENESS FOR SAFETY AND WILL NOTIFY CLINICAL SOLVENT MIXER AND PHYSICIAN/PROVIDER WITH ANY CHANGE IN CONDITION. [code = SKILLED NURSE WILL MAINTAIN SITUATIONAL AWARENESS FOR SAFETY AND WILL NOTIFY CLINICAL SOLVENT MIXER AND PHYSICIAN/PROVIDER WITH ANY CHANGE IN CONDITION.] Future Scheduled Test SKILLED NU RSE FOR O/A OF GENERAL HEALTH STATUS OF PAIN, CARDIAC, RESPIRATORY, GASTROINTESTINAL, GENITOURINARY, SKIN, NEUROLOGIC, ENDOCRINE SYSTEMS TO IDENTIFY CHANGES ASSOCIATED WITH EXACERBATION FOR EARLY INTERVENTION OF COMPLICATIONS WEEKLY AND PRN [code = SKILLED NURSE FOR O/A OF GENERAL HEALTH STATUS OF PAIN, CARDIAC, RESPIRATORY, GASTROINTESTINAL, GENITOURINARY, SKIN, NEUROLOGIC, ENDOCRINE SYSTEMS TO IDENTIFY CHANGES ASSOCIATED WITH EXACERBATION FOR EARLY INTERVENTION OF COMPLICATIONS WEEKLY AND PRN] Future Scheduled Test SKILLED NU RSE TO REVIEW PATIENT MEDICATIONS. INSTRUCT PATIENT/CAREGIVER ON MONITORING OF EFFECTIVENESS, ADVERSE DRUG REACTIONS, SIDE EFFECTS OF ALL MEDICATIONS (PRESCRIPTION/-OTC), AND HOW AND WHEN TO REPORT PROBLEMS. [code = SKILLED NURSE TO REVIEW PATIENT MEDICATIONS. INSTRUCT PATIENT/CAREGIVER ON MONITORING OF EFFECTIVENESS, ADVERSE DRUG REACTIONS, SIDE EFFECTS OF ALL MEDICATIONS (PRESCRIPTION/-OTC), AND HOW AND WHEN TO REPORT PROBLEMS.] Future Scheduled Test SKILLED NU RSE TO PRE-POUR MEDICATION PER MEDICATION LIST [code = SKILLED NURSE TO PRE-POUR MEDICATION PER MEDICATION LIST] Future Scheduled Test SKILLED NU RSE FOR O/A OF SIGNS AND SYMPTOMS OF SUBSTANCE USE. INSTRUCT PATIENT ON RELATED RISKS AND WILL NOTIFY TREATMENT TEAM NEEDED. [code = SKILLED NURSE FOR O/A OF SIGNS AND SYMPTOMS OF SUBSTANCE USE. INSTRUCT PATIENT ON RELATED RISKS AND WILL NOTIFY TREATMENT TEAM NEEDED.] Future Scheduled Test SKILLED NU RSE FOR O/A OF NEUROCOGNITIVE AND BEHAVIORAL STATUS [code = SKILLED NURSE FOR O/A OF NEUROCOGNITIVE AND BEHAVIORAL STATUS] Future Scheduled Test SKILLED NU RSE FOR O/A OF CLIENT'S KNOWLEDGE OF DISEASE PROCESS AND MANAGEMENT. MAY TEACH DISEASE MANAGEMENT TECHNIQUES DESIGNED TO INCREASE CLIENT'S FUNCTIONAL STATUS. [code = SKILLED NURSE FOR O/A OF CLIENT'S KNOWLEDGE OF DISEASE PROCESS AND MANAGEMENT. MAY TEACH DISEASE MANAGEMENT TECHNIQUES DESIGNED TO INCREASE CLIENT'S FUNCTIONAL STATUS.] Goal 2023-03-03 Patient Goal - TO WALK WITHO UT FALLING Goal 2023-05-02 Patient Goal - G O TO REHAB, GET A NEW PCP. Goal 2023-07-05 Patient Goal - G O TO REHAB, STAY COMPLIANT WITH MEDICATION Goal Provider Goal - A PLAN OF CARE WILL BE ESTABLISHED THAT MEETS PATIENT'S [facility] NEEDS AND INCLUDES PATIENT GOAL FOR HOME HEALTH. Goal Provider Goal - ALTERED MENTAL/BEHAVIORAL STATUS WILL BE IDENTIFIED PROMPTLY AND INTERVENTION INITIATED QUICKLY TO MINIMIZE ASSOCIATED RISKS THROUGHOUT CERTIFICATION PERIOD. Goal Provider Goal - PATIENT WILL REMAIN SAFE IN THE COMMUNITY AND WILL BE FREE OF DANGER TO SELF AND OTHERS THROUGHOUT THE CERTIFICATION PERIOD. Goal Provider Goal - CHANGE IN GENERAL HEALTH STATUS WILL BE IDENTIFIED AND REPORTED TO PHYSICIAN FOR PROMPT INTERVENTION TO MINIMIZE ASSOCIATED RISKS THROUGHOUT CERTIFICATION PERIOD. Goal Provider Goal - PATIENT/CAREGIVER WILL VERBALIZE UNDERSTANDING OF EDUCATION PROVIDED ON MEDICATIONS BY THE END OF THE CERTIFICATION PERIOD. Goal Provider Goal - PATIENT WILL COMPLY WITH MEDICATION WHEN SKILLED NURSE PRE-POURS MEDICATION THROUGHOUT CERTIFICATION PERIOD. Goal Provider Goal - PATIENT WILL REMAIN SAFE IN COMMUNITY AND WILL ACKNOWLEDGE RELATED RISKS OF SUBSTANCE USE THROUGHOUT CERTIFICATION PERIOD. Goal Provider Goal - PATIENT WILL BE ABLE TO PERFORM DAILY FUNCTIONS AND MAINTAIN OPTIMAL BEHAVIORAL/NEUROCOGNITIVE STATUS THROUGHOUT CERTIFICATION PERIOD. Goal Provider Goal - PATIENT WILL DEMONSTRATE IMPROVED MANAGEMENT SKILLS IN DEALING WITH CURRENT DISEASE PROCESS BY THE END OF THE CERTIFICATION PERIOD. Reason for Visit REMAINS INPATIENT AT TIME OF DISCHARGE Encounters Start Date/Time End Date/Time Encounter Type Admission Type Attending Clinicians Care Facility Care Department Encounter ID Discharge Date Discharge Status Discharge Condition Discharge Reason Percent Goals Met 2023-01-07 00:00:00 2023-07-05 00:00:00 Outpatient RECERTIFIC [facility] [id number] 2023-07-05 00:00:00 DISCHARGED /TRANSFERR ED TO A SHORT-TERM [facility] FOR INPATIENT CARE REMAINS INPATIENT AT TIME OF DISCHARGE REMAINS IN INPATIENT FACILITY AT END OF CERT PERIOD 66.67
[2024-04-05 13:07] VITALS: BMI 21.6
[2024-04-09 13:03] VITALS: BP 148/87; PULSE 100; RESP 18; TEMP 36.9; O2SAT 96; BMI 22.6
--- NOTE | 2024-04-09 13:20 | P.CONAN_ITS ---
HPI - Anesthesia Eval Consult details Narrative: 33 yo male patient for Cystoscopy, bladder botox injection PMFSH Active Problems Active Problems: All Active Problems Physical exam (Acute) Hypogonadotropic hypogonadism (Acute) Fractured nose (Acute) Leukocytosis (Acute) Insomnia (Acute) Opioid use disorder (Acute) Coarse tremors (Acute) Neurogenic urinary bladder disorder (Acute) Recurrent UTI (urinary tract infection) (Acute) Obstructive sleep apnea (Acute) Central sleep apnea (Acute) Cellulitis (Acute) Erectile dysfunction (Acute) Insomnia (Acute) Encounter for annual wellness visit (AWV) in Medicare patient (Acute) Hypogonadism in male (Acute) HTN (hypertension) (Acute) Hypogonadotropic hypogonadism (Acute) Skin lesions, generalized (Acute) Contusion of back (Acute) Chronic lower back pain (Acute) Insomnia (Acute) Mood disorder (Acute) Polysubstance use disorder (Acute) PTSD (post-traumatic stress disorder) (Acute) Anxiety (Acute) PSP (progressive supranuclear palsy) (Acute) Spasticity (Acute) Past Medical History Medical History Right foot drop Leg pain, bilateral Polysubstance use disorder PTSD (post-traumatic stress disorder) Ataxia Anoxia of brain Bipolar 1 disorder PSP (progressive supranuclear palsy) Parkinsonism OAB (overactive bladder) Self-catheterizes urinary bladder Anxiety OCD (obsessive compulsive disorder) Hx of traumatic brain injury BPH (benign prostatic hyperplasia) Spasticity Obstructive sleep apnea Overactive bladder Family History Family History Father Cancer Mother No problems noted. Family history of problems with anesthesia: No Surgical History Surgical History Hx of cystoscopy History of esophagogastroduodenoscopy (EGD) History of Problems with Anesthesia: No Social History Social History Household Members: None Housing: House Are you a primary caregiver assisted living to a significant other at home: No Do you presently have visiting nurse or other home services: No Alcohol intake: current Alcohol intake frequency: does not drink Alcohol type: beer Comment: medicated, see MAR Patient Tobacco Use Status: Current everyday Tobacco user Tobacco use type: Cigarette Cigarettes Per Day: 10 Years Smoked: 15 e-Cigarette/Vaping Use: Currently Using Second Hand Smoke Exposure: Yes Substance Use Type: Marijuana service: No Current occupational status: disabled Sexual orientation: Don't Know Cognitive needs: No Hearing needs: No Vision needs: No Meds Allergies Allergy/AdvReac Type Severity Reaction Status Date / Time No Known Allergies Allergy Verified 02/10/24 15:14 [No Known Allergies*] Home Medications ?Medication ?Instructions ?Recorded ?Confirmed ?Last Taken ?Type quetiapine 50 mg tablet 100 mg PO BEDTIME 11/06/22 04/05/24 Unknown History amitriptyline 25 mg tablet 25 mg PO BEDTIME 04/05/24 04/05/24 Unknown History carbidopa 25 mg-levodopa 100 mg 1 tab PO TID 04/05/24 04/05/24 04/09/24 History tablet trazodone 100 mg tablet 100 mg PO BEDTIME 04/05/24 04/05/24 Unknown History Exam Height,Weight and Vital Signs: Height 5 ft 11 in Weight 73.65 kg Last Vital Signs Temp 98.5 F 04/09/24 13:03 Pulse 100 04/09/24 13:03 Resp 18 04/09/24 13:03 BP 148/87 H 04/09/24 13:03 Pulse Ox 96 04/09/24 13:03 O2 Del Method Room Air 04/09/24 13:03 Pertinent Lab Results Pertinent Lab Results: Lab Results 04/09/24 Range/Units 14:00 Urine Opiates Screen Not Detected (Not Detect) Ur Buprenorphine Scrn Positive H (Not Detect) ng/mL Ur Oxycodone Screen Not Detected (Not Detect) ng/mL Urine Methadone Screen Not Detected (Not Detect) ng/mL Urine Fentanyl Screen Not Detected (Not Detect) Ur Barbiturates Screen Not Detected (Not Detect) Ur Phencyclidine Scrn Not Detected (Not Detect) Ur Amphetamines Screen Not Detected (Not Detect) U Benzodiazepines Scrn Not Detected (Not Detect) Urine Cocaine Screen Not Detected (Not Detect) U Marijuana (THC) Screen Not Detected (Not Detect) Airway Mallampati Class: III TM Dist: >3cm Neck ROM: Full Loose/Missing/Broken Teeth: No Heart: RRR Lungs: CTAB Assessment and Plan Assessment Anesthesia Assessment: Anesthesia Plan Discussed and Chart Reviewed Final Anesthetic Review Family History of Problems with Anesthesia: No History of Problems with Anesthesia: No NPO: Yes ASA Class: III Final Preanesthetic Review: No Changes in Pt Med Stat, Meds/Allgs Chart Reviewed, Consent Obtained/Reviewed and Anes Risks/Benef Reviewed Patient Risk: Intermediate Procedure Risk: Low Assessment/Block/Sedation in SS: Assess/Block/Sedation-SS Anesthetic Plan Anesthetic Plan: GA Disposition: Standard PACU
[2024-04-09] MEDS: levoFLOXacin 500 MG TABLET PO (13:41)
[2024-04-09 14:25] LABS: Amphetamine Screen Urine Not Detected (Not Detect); Barbiturates, Urine Not Detected (Not Detect); Benzodiazepines Screen Urine Not Detected (Not Detect); Buprenorphine Scr Positive (Not Detect); Cannabinoid Screen Urine Not Detected (Not Detect); Cocaine Screen Urine Not Detected (Not Detect); Fentanyl, urine Not Detected (Not Detect); Methadone Screen, Urine Not Detected (Not Detect); Opiate Screen Urine Not Detected (Not Detect); Oxycodone Screen Urine Not Detected (Not Detect); Phencyclidine Screen Urine Not Detected (Not Detect)
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
--- NOTE | 2024-04-09 15:03 | P.OP_ITS ---
Operative Note Operative Note Date of Service: 04/09/24 Narrative: PreOperative Diagnosis: Overactive bladder with failure of medications Post Operative Diagnosis: Overactive bladder with failure of medications Procedure: Cystoscopy with injection 100 units Botox intra detrusor muscle Surgeon: Dr Rivera Mckeon Anesthesia: Sedation Indications for procedure: Has persistent urgency and frequency. Has failed oral medications. Prior Botox has been successful Procedure: After informed consent was verified the patient was brought to the operating room and placed in a supine position. Anesthesia was administered per protocol. Cystoscopy performed with 22 Faroese cystoscope. Bladder was emptied of urine. Bladder was refilled. Using 100 units of Botox mixed in 10 cc of normal saline injections were placed at the back wall of the bladder. 0.5cc placed at each injection site. Injections were placed in a grid 5 across and for high. I njections were placed from the inferior to superior position. Trabeculations on the bladder wall with targeted for each injection site. Procedure was tolerated well. Patient was extubated and transferred in stable condition to the recovery area. Pathology: None Drains: None
[2024-04-09 15:05] VITALS: BP 130/91; PULSE 85; RESP 16; TEMP 36.4; O2SAT 96
[2024-04-09 15:10] VITALS: BP 128/89; PULSE 88; RESP 16; O2SAT 96
[2024-04-09] MEDS: Phenazopyridine HCL 100 MG TABLET PO (15:14)
[2024-04-09 15:15] VITALS: BP 140/93; PULSE 97; RESP 18; O2SAT 97
[2024-04-09 15:20] VITALS: BP 125/85; PULSE 89; RESP 16; O2SAT 97
[2024-04-09 15:27] VITALS: BP 139/90; PULSE 89; RESP 16; TEMP 36.7; O2SAT 97
== END 2024-04-09 15:32 | disposition home or self-care (01) ==
PROVIDERS: Anesthesiology; PCP Nurse Practitioner Family; Visit Provider Urology
PROC: 3E0K8GC Introduction of Other Therapeutic Substance into Genitourinary Tract, Via Natural or Artificial Opening Endoscopic (ICD-10-PCS; CPT 52287; principal; 2024-04-09 14:00)
DX: N31.9 Neuromuscular dysfunction of bladder, unspecified (principal); N32.81 Overactive bladder; R39.15 Urgency of urination; R35.0 Frequency of micturition; G93.1 Anoxic brain damage, not elsewhere classified; G20.C Parkinsonism, unspecified; Z87.820 Personal history of traumatic brain injury; E23.0 Hypopituitarism; R25.2 Cramp and spasm; F19.90 Other psychoactive substance use, unspecified, uncomplicated; F31.9 Bipolar disorder, unspecified; Z79.899 Other long term (current) drug therapy; F17.210 Nicotine dependence, cigarettes, uncomplicated
CPT/HCPCS: 52287; 80307; J0585; J2003; J2405; J2704; J3010

== ENCOUNTER → 2024-04-09 12:04 | Outpatient (BNV) | payer MEDICARE, MEDICAID, SELFPAY | PROVIDERS: PCP Nurse Practitioner Family; Visit Provider Urology | DX: N31.9 Neuromuscular dysfunction of bladder, unspecified (principal) | CPT/HCPCS: 52287 ==

== ENCOUNTER → 2024-04-23 13:39 | Outpatient (BNVA) | payer MEDICARE, MEDICAID, SELFPAY | PROVIDERS: PCP Nurse Practitioner Family; Visit Provider Urology | DX: N31.9 Neuromuscular dysfunction of bladder, unspecified (principal) | CPT/HCPCS: 51798 ==

== ENCOUNTER 2024-07-10 14:59 | Outpatient (REF) | payer MEDICARE, MEDICAID, SELFPAY ==
--- OUTSIDE RECORDS SUMMARY | 2024-07-10 18:49 | XMS_ITS | Clinical Summary ---
Author Organization [facility] Address [address] [place] [address] Care Team Providers Care Hot Air Furnace Installer And Repairer Name Role Phone Pcp, No Primary Care [...] 7 DAYS 3 Active chorionic gonadotropin (PREGNYL) 41041 units injection 3 Active clonazePAM (KlonoPIN) 1 [...] age to complete this topic Care Teams Hot Air Furnace Installer And Repairer Relationship Specialty Start Date End Date Pcp, No PCP - General General Medicine 09/22/22
--- OUTSIDE RECORDS SUMMARY | 2024-07-10 18:49 | XMS_ITS | Encounter Summary ---
Author Organization [facility] Address [address] [place] [address] Care Team Providers Care Direct Care Supervisor Name Role Phone Bobby Bazan MD Primary Care Provider [phone] Reason for Visit * Reason Onset Date Comments Med Refill 06/29/2024 Zepbound w/titra tion Encounter Details Date Type Department Care Team (Late st Contact Info) Description 06/29/2024 Telephone Bariatric Surgery - [place] [address] [facility] [address] [place] [phone] Jose Johnson MD [address] [facility] [address] [place] [address] Med Refill (Zepbound w/titration) Social History Tobacco [...] PM EDT Office Visit Bariatric Surgery - [place] [address] [place] [phone] Jose Johnson MD 175 [facility] [address] [place] [address] documented as of this encounter Visit Diagnoses Not on filedocumented in this encounter Care Teams Direct Care Supervisor Relationship Specialty Start Date End Date Bobby Bazan MD [address] [place] [address] PCP - General 01/02/14 documented as of this encounter
--- OUTSIDE RECORDS SUMMARY | 2024-07-10 18:49 | XMS_ITS | Clinical Summary ---
Author Organization [address] [place] [address] Address [address] [place] [address] Phone Care Team Providers Care Production Control Expert Name Role Phone Bobby Bazan MD Primary Care Provider [phone] Allergies No known active allergies Medications carbidopa-levod [...] (BMI) of 36.0 to 36.9 in adult ([facility] V24, [facility] V28) Inject 0.5 mL (7.5 mg total) under the skin every 7 (seven) days. 2 mL 1 5 Active tirzepatide, weight loss, (Zepbound) 2.5 mg/0.5 mL injectionIndica tions:Class 2 severe obesity due to excess calories with serious comorbidity and body mass index (BMI) of 36.0 to 36.9 in adult ([facility] V24, [facility] V28) Inject 0.5 mL (2.5 [...] (BMI 30-39.9) 01/21/2014 Depression, major, in remission ([facility] [place]) Anxiety disorder 01/21/2014 Anoxic encephalopathy ([facility] [place]24, [facility] V28) 01/21/2014 Overview (04/12/2024): From heroing od Acid reflux 01/21/2014 Encounters Date Type Department Care Team Description 06/29/2024 Telephone Bariatric Surgery - [address] [address] Jose Johnson MD Med Refill (Zepbound w/titration) 05/22/2024 2:45 PM EST Consult Bariatric Surgery - [address] [address] Jose Johnson MD Class 2 severe obesity due to excess calories with serious comorbidity and body mass index (BMI) of 36.0 to 36.9 in adult ([facility] V24, [facility] V28) (Primary Dx) from Last 3 Months Immunizations Name Administration Dates Next Due Tdap Tetanus diptheria acell ular pertussis (Boostrix; Adacel) 7yo and older 03/29/2014 Surgical History Surgery Date Site/Laterality Comments OTHER SURGICAL HISTORY PROCEDURE: [place] EXCISION MALIGNANT LESION F/E/E/N/L 0.5 CM/<; COMMENT: [...] PM EDT Office Visit Bariatric Surgery - [place] [address] [place] [address] Jose Johnson MD [address] [place] [address] Health Maintenance Due Date Last Done Comments [...] * Annual BMP Blood Test (03/30/2014) Pathologist [facility] Annual BMP Blood Test abstracted Historical Provider HEALTH MAINTENANCE Final Result * Hepatitis C Screening (03/30/2014) Pathologist [facility] Hepatitis C Screening abstracted Historical Provider HEALTH MAINTENANCE Final Result * (ABNORMAL) Lipid panel (03/30/2014) Pathologist [facility] LDL/HDL Ratio 5(A) 0 - 4 Triglycerides 235(A) 0 - 150 mg/dL Cholesterol 166 0 - 200 mg/dL HDL 31(A) >=40 mg/dL LDL Cholesterol 88 0 - 100 mg/dL Blood Venous blood specimen / Unknown Historical Provider LAB BLOOD ORDERABLES Samina l Result from Last 3 Months or Most Recently Relevant to Health Maintenance Insurance MEDICARE MEDICAID - [place] Care Teams Production Control Expert Relationship Specialty Start Date End Date Bobby Bazan MD [address] [place] [address] PCP - General 01/02/14
[2024-07-11 04:29] LABS: Lutenizing Hormone 5.8 mIU/mL (1.5-9.3)
[2024-07-14 14:33] LABS: Testosterone, Free 64.9 pg/mL (35.0-155.0); Testosterone, Total 373 ng/dL (250-1100)
== END 2024-07-10 15:00 | disposition home or self-care (01) ==
LOC: HO.LAB 14:59
PROVIDERS: PCP Nurse Practitioner Family; Visit Provider Urology
DX: E23.0 Hypopituitarism (principal); N31.9 Neuromuscular dysfunction of bladder, unspecified
CPT/HCPCS: 36415; 51798; 81003; 83002; 84402; 84403; 99212

== ENCOUNTER 2024-07-10 14:59 | Outpatient (AMB) | payer MEDICARE, MEDICAID, SELFPAY ==
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
--- OUTSIDE RECORDS SUMMARY | 2024-07-10 17:55 | XMS_ITS | Encounter Summary ---
Author Organization [facility] Address [address] [place] [address] Care Team Providers Care Safety Deposit Supervisor Name Role Phone Bobby Bazan MD Primary Care Provider [phone] Reason for Visit * Reason Onset Date Comments Med Refill 06/29/2024 Zepbound w/titra tion Encounter Details Date Type Department Care Team (Late st Contact Info) Description 06/29/2024 Telephone Bariatric Surgery - [place] [address] [place] [phone] Jose Johnson MD [address] [place] [address] Med Refill (Zepbound w/titration) Social History Tobacco Use Types Packs/Day Years Used Date Smoking Tobacco: Every Day Cigarettes Alcohol Use Standard Drinks/Week Comments No 0 (1 standard drink = 0.6 oz pur e alcohol) Sex and Gender Information Value Date Recorded Sex Assigned at Not on file Legal Sex Male 6:37 AM EST Gender Identity Not on file Sexual Orientation Not on file documented as of this encounter Progress Notes * Maryse Joseph - 06/29/2024 3:08 PM EDT Patient did well on Zepbound 5 mgs and would like a refill with titration. If appropriate, please send script for Zepbound 7.5 mgs to their pharmacy. The patient does have a follow up in 09/13/2024 documented in this encounter Plan of Treatment Upcoming Encounters Date Type Department Care Team (Late st Contact Info) Description 09/13/2024 1:00 PM EDT Office Visit Bariatric Surgery - [place] [address] [place] [phone] Jose Johnson MD [address] [facility] [address] [place] [address] documented as of this encounter Visit Diagnoses Not on filedocumented in this encounter Care Teams Safety Deposit Supervisor Relationship Specialty Start Date End Date Bobby Bazan MD [address] [place] [address] PCP - General 01/02/14 documented as of this encounter
--- OUTSIDE RECORDS SUMMARY | 2024-07-10 17:55 | XMS_ITS | Clinical Summary ---
Author Organization [facility] Address [address] [place] [address] Care Team Providers Care Portrait Painter Name Role Phone Pcp, No Primary Care Provider Unavailabl e Allergies No known active allergies Medications amLODIPine (NORVASC) 2.5 MG tablet Take 2.5 mg by mouth daily. 3 Active amphetamine-dext roamphetamine (ADDERALL XR) 20 MG 24 hr capsule TAKE 1 CAPSULE BY MOUTH EVERY DAY IN THE MORNING 3 Active cephalexin (KEFLEX) 500 MG capsule TAKE 1 CAPSULE BY MOUTH 4 TIEMS DAILY FOR 7 DAYS 3 Active chorionic gonadotropin (PREGNYL) 07816 units injection 3 Active clonazePAM (KlonoPIN) 1 MG tablet TAKE 1 TABLET BY MOUTH THREE TIMES A DAY NEEDED FOR ANXIETY. DO NOT TAKE WITHIN 6 HRS OF QUVIVIQ 3 Active Quviviq 25 MG Tab TAKE ONE TABLET BY MOUTH AT BEDTIME, NEEDED FOR SLEEP. DO NOT TAKE WITHIN 6 HOURS OF CLONAZEPAM 3 Active gabapentin (NEURONTIN) 300 MG capsule 300 MG ORALLY 3 TIMES A DAY FOR 30 DAYS 3 Active ketoconazole (NIZORAL) 2 % shampoo APPLY AND LATHER SHAMPOO TO SCALP, LEAVE ON FOR 5 T 10 MINTYES USE DAILY OR NEEDED FOR SYMPTOMS. 3 Active lisinopril (PRINIVIL,ZeSTRI L) 10 MG tablet TAKE 2 TABLETS BY MOUTH MDAILY 3 Active OMEprazole (PriLOSEC) 20 MG capsule Take 40 mg by mouth daily. 3 Active QUEtiapine (SEROquel) 200 MG tablet 3 Active QUEtiapine (SEROquel) 50 MG tablet TAKE ONE TO TWO (1-2) TABLETS BY MOUTH AT BEDTIME, NEEDED FOR SLEEP 3 Active sildenafil (VIAGRA) 100 MG tablet TAKE ONE TABLET BY MOUTH EVERY DAY NEEDED FOR ERECTILE DYSFUNCTION 3 Active Quviviq 50 MG Tab TAKE ONE (1) TABLET BY MOUTH AT BEDTIME, NEEDED FOR SLEEP. DO NOT TAKE WITHIN 6 HR OF CLONAZEPAM 3 Active Social History Tobacco Use Types Packs/Day Years Used Date Smoking Tobacco: Every Day Cigarettes Smokeless Tobacco: Never Tobacco Cessation:Ready to Q uit: Not Asked; Counseling Given: Not Answered Alcohol Use Standard Drinks/Week Comments Not Currently 0 (1 standard drink = 0.6 oz pur e alcohol) Sex and Gender Information Value Date Recorded Sex Assigned at Not on file Legal Sex Male 2:33 PM EDT Gender Identity Not on file Sexual Orientation Not on file Plan of Treatment Health Maintenance Due Date Last Done Comments Hepatitis C Virus Screening 1988 HIV Screening 2001 DTaP/Tdap/Td Vaccines (1 - Tdap) 12/06/2007 Hepatitis B Vaccines (1 of 3 - 19+ 3-dose series) 12/06/2007 Pneumococcal Vaccine: Pediat breezy (0-5 Years) and At-Risk Patients (6 to 49 Years) (1 of 2 - PCV) 12/06/2007 Influenza Vaccine 10/20/2023 COVID-19 Vaccine ( - 2023-2 5 season) 2023 HPV Vaccines Aged Out No longer eligi ble based on patient's age to complete this topic Care Teams Portrait Painter Relationship Specialty Start Date End Date Pcp, No PCP - General General Medicine 09/22/22
== END 2024-07-10 16:11 | disposition home or self-care (01) ==
LOC: HO.HUSH 15:00
PROVIDERS: PCP Nurse Practitioner Family; Visit Provider Urology
DX: N31.9 Neuromuscular dysfunction of bladder, unspecified (principal); E23.0 Hypopituitarism
CPT/HCPCS: 99213; G2211

== ENCOUNTER 2024-08-02 09:24 | Outpatient (AMB) | payer MEDICARE, MEDICAID, SELFPAY ==
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
--- OUTSIDE RECORDS SUMMARY | 2024-08-02 09:58 | XMS_ITS | Clinical Summary ---
Author Organization [facility] Address [address] [place] [address] Care Team Providers Care Enterprise Resource Planning Consultant Name Role Phone Pcp, No Primary Care [...] 7 DAYS 3 Active chorionic gonadotropin (PREGNYL) 76857 units injection 3 Active clonazePAM (KlonoPIN) 1 [...] Years) (1 of 2 - PCV) 12/06/2007 COVID-19 Vaccine (2023-2 5 season) 2023 Influenza Vaccine 10/19/2024 HPV Vaccines Aged Out No longer eligi ble based on patient's age to complete this topic Care Teams Enterprise Resource Planning Consultant Relationship Specialty Start Date End Date Pcp, No PCP - General General Medicine 09/22/22
== END 2024-08-02 10:43 | disposition home or self-care (01) ==
LOC: HO.HUSH 09:24
PROVIDERS: PCP Nurse Practitioner Family; Visit Provider Urology
DX: N31.9 Neuromuscular dysfunction of bladder, unspecified (principal)
CPT/HCPCS: 99214

== ENCOUNTER → 2024-08-02 09:24 | Outpatient (BNVA) | payer MEDICARE, MEDICAID, SELFPAY | PROVIDERS: PCP Nurse Practitioner Family; Visit Provider Urology | DX: Z13.89 Encounter for screening for other disorder (principal) ==

== ENCOUNTER 2025-01-08 13:54 | Outpatient (REF) | payer MEDICARE, MEDICAID, SELFPAY ==
--- OUTSIDE RECORDS SUMMARY | 2025-01-08 18:39 | XMS_ITS | Clinical Summary ---
Author Organization [facility] Address [address] [place] [address] Care Team Providers Care Table Cover Folder Name Role Phone Pcp, No Primary Care [...] 7 DAYS 3 Active chorionic gonadotropin (PREGNYL) 39227 units injection 3 Active clonazePAM (KlonoPIN) 1 [...] (1 of 3 - 19+ 3-dose series) 11/19 Pneumococcal Vaccine: Pediat breezy (0-5 Years) and At-Risk Patients (6 to 49 Years) (1 of 2 - PCV) 12/06/2007 Influenza Vaccine 10/19/2024 COVID-19 Vaccine (1 - season) 2024 HPV Vaccines (No Doses Required) Completed Care Teams Table Cover Folder Relationship Specialty Start Date End Date Pcp, No PCP - General General Medicine 09/22/22
--- OUTSIDE RECORDS SUMMARY | 2025-01-08 18:39 | XMS_ITS | Encounter Summary ---
Author Organization [facility] Address [address] [place] [address] Phone Care Team Providers Care Rags Laborer Name Role Phone Annika Damon Primary Care Provider [phone] Encounter Details Date Type Department Care Team (Late st Contact Info) Description 12/11/2024 Documentation Only [facility] [address] [place] [phone] [place], [place] [address] [place] [address] Social History Tobacco Use Types Packs/Day Years Used Date Smoking Tobacco: Never Assessed Sex and Gender Information Value Date Recorded Sex Assigned at Not on file Legal Sex Male 5:24 PM EST Gender Identity Not on file Sexual Orientation Not on file documented as of this encounter Plan of Treatment Upcoming Encounters Date Type Department Care Team (Late st Contact Info) Description 01/14/2025 4:30 PM EDT Office Visit [facility] [address] [place] [address] Nate Flores MD [address] [place] [address] [place] [phone] documented as of this encounter Visit Diagnoses Not on filedocumented in this encounter Care Teams Rags Laborer Relationship Specialty Start Date End Date Annika Damon [address] [place] [address] PCP - General 12/11/24 documented as of this encounter
--- OUTSIDE RECORDS SUMMARY | 2025-01-08 18:39 | XMS_ITS | Clinical Summary ---
Author Organization [facility] Address [address] [place] [address] Phone Care Team Providers Care Form Grader Name Role Phone Annika Damon Primary Care Provider [phone] Encounters Date Type Department Care Team Description 12/11/2024 Documentation Only [facility] [address] [place] [address] Sulema Robles [place] from Last 3 Months Social History Tobacco Use Types Packs/Day Years Used Date Smoking Tobacco: Never Assessed Sex and Gender Information Value Date Recorded Sex Assigned at Not on file Legal Sex Male 5:24 PM EST Gender Identity Not on file Sexual Orientation Not on file Plan of Treatment Upcoming Encounters Date Type Department Care Team (Late st Contact Info) Description 01/14/2025 4:30 PM EDT Office Visit [facility] [address] [address] Nate Flores MD [address] [facility] [place] [address] Health Maintenance Due Date Last Done Comments Hepatitis B Vaccine (1 of 3 - 19+ 3-dose series) 12/05 Pneumococcal Vaccine: Peds ( 0 to 5 Years) and At-Risk Patients (6 to 49 Years) (1 of 2 - PCV) 12/06/2007 Influenza Vaccine (#1) 2024 Insurance Medicare Medicaid [place] Care Teams Form Grader Relationship Specialty Start Date End Date Annika Damon [address] [place] [address] PCP - General 12/11/24
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
--- OUTSIDE RECORDS SUMMARY | 2025-01-08 18:39 | XMS_ITS ---
Author Name [facility] Organization Unknown History of Medication Use Medication Directions Dispensed Refills Start Date End Date Stat albuterol sulfate 12/26/2024 act herbert benzonatate 12/26/2024 active amlodipine besylate 12/07/2024 a ctive carbidopa/levodopa 11/26/2024 ac tive Zepbound 09/26/2024 active quetiapine fumarate 08/08/2024 a ctive gabapentin 05/22/2024 active QUEtiapine (SEROquel) 200 MG tablet 09/19/2022 active clonazePAM (KlonoPIN) 1 MG tablet TAKE 1 TABLET BY MOUTH THREE TIMES A DAY NEEDED FOR ANXIETY. DO NOT TAKE WITHIN 6 HRS OF QUVIVIQ 09/16/2022 active lisinopril (PRINIVIL,ZeSTRIL) 10 MG tablet TAKE 2 TABLETS BY MOUTH MDAILY 09/15/2022 active OMEprazole (PriLOSEC) 20 MG capsule Take 40 mg by mouth daily. 09/15/2022 active cephalexin (KEFLEX) 500 MG capsule TAKE 1 CAPSULE BY MOUTH 4 TIEMS DAILY FOR 7 DAYS 09/11/2022 active QUEtiapine (SEROquel) 50 MG tablet TAKE ONE TO TWO (1-2) TABLETS BY MOUTH AT BEDTIME, NEEDED FOR SLEEP 09/09/2022 active Quviviq 50 MG Tab TAKE ONE (1) TABLET BY MOUTH AT BEDTIME, NEEDED FOR SLEEP. DO NOT TAKE WITHIN 6 HR OF CLONAZEPAM 09/02/2022 active amLODIPine (NORVASC) 2.5 MG tablet Take 2.5 mg by mouth daily. 08/19/2022 active amphetamine-dextroamp hetamine (ADDERALL XR) 20 MG 24 hr capsule TAKE 1 CAPSULE BY MOUTH EVERY DAY IN THE MORNING 07/30/2022 active chorionic gonadotropin (PREGNYL) 32602 units injection 07/30/2022 active ketoconazole (NIZORAL) 2 % shampoo APPLY AND LATHER SHAMPOO TO SCALP, LEAVE ON FOR 5 T 10 MINTYES USE DAILY OR NEEDED FOR SYMPTOMS. 07/28/2022 active sildenafil (VIAGRA) 100 MG tablet TAKE ONE TABLET BY MOUTH EVERY DAY NEEDED FOR ERECTILE DYSFUNCTION 07/26/2022 active gabapentin (NEURONTIN) 300 MG capsule 300 MG ORALLY 3 TIMES A DAY FOR 30 DAYS 07/14/2022 active Quviviq 25 MG Tab TAKE ONE TABLET BY MOUTH AT BEDTIME, NEEDED FOR SLEEP. DO NOT TAKE WITHIN 6 HOURS OF CLONAZEPAM 07/13/2022 active Problems Problem Status Onset Date Problem Type Date of Resoluti on Source Visit for suture removal active EncounterDiagnosisAct CCT Encounters Encounter Type Encounter Reason Primary Diagnosis Location Date Ambulatory TBE Unspecified acut e lower respiratory infection [facility] 12/26/2024 Ambulatory Encounter for re moval of sutures [facility] 09/22/2022 Care Team Organization Name Specialty Phone Email Start Date End Da te [facility] 12/26/2024 [facility] 12/26/2024 [facility] NO PCP Primary Care 09/22/2022 09/22/2022 [facility] PCP,No Primary Care 09/22/2022
== END 2025-01-08 13:55 | disposition home or self-care (01) ==
LOC: HO.LAB 13:54
PROVIDERS: PCP Nurse Practitioner Family; Visit Provider Urology
DX: N52.9 Male erectile dysfunction, unspecified (principal)
CPT/HCPCS: 36415; 84403

== ENCOUNTER 2025-01-16 09:49 | Outpatient (AMB) | payer MEDICARE, MEDICAID, SELFPAY ==
--- OUTSIDE RECORDS SUMMARY | 2025-01-14 16:30 | XMS_ITS | Encounter Summary ---
Author Organization [facility] Address [address] [place] [address] Phone Care Team Providers Care Rubber Boots And Shoes Repairer Name Role Phone Annika Damon Primary Care Provider [phone] Encounter Details Date Type Department Care Team (Late st Contact Info) Description 01/14/2025 4:30 PM EDT Office Visit [facility] [address] [place] [address] Nate Flores MD [address] [place] [address] [place] [address] Acute kidney failure with tubular necrosis (HCC) (Primary Dx) Social History Tobacco Use Types Packs/Day Years Used Date Smoking Tobacco: Never Assessed Sex and Gender Information Value Date Recorded Sex Assigned at Not on file Legal Sex Male 5:24 PM EST Gender Identity Not on file Sexual Orientation Not on file documented as of this encounter Last Filed Vital Signs Vital Sign Reading Time Taken Comments Blood Pressure 143/90 01/14/2025 4:46 PM EDT Pulse - - Temperature - - Respiratory Rate - - Oxygen Saturation - - Inhaled Oxygen Concentration - - Weight - - Height - - Body Mass Index - - documented in this encounter Plan of Treatment Upcoming Encounters Date Type Department Care Team (Late st Contact Info) Description 04/19/2025 2:15 PM EST Office [facility] [address] [place] [address] Nate Flores MD [address] [facility] [place] [address] Pending Results Name Type Priority Associated Diagnoses Date /Time Protein, Total, Random Urine w/Creatinine (Protein/Creat Ratio) Lab Routine Acute kidney failure with tubular necrosis (HCC) 01/15/2025 12:36 PM EDT Urine Albumin / Creatinine Ratio Lab Routine Acute kidney failure with tubular necrosis (HCC) 01/15/2025 12:36 PM EDT documented as of this encounter Procedures Procedure Name Priority Date/Time Associated Diagnosis Comments MICROSCOPIC EXAMINATION - DO NOT USE Routine 01/15/2025 12:36 PM EDT PROTEIN / CREATININE RATIO, URINE Routine 01/15/2025 12:36 PM EDT Acute kidney failure with tubular necrosis (HCC) URINE ALBUMIN / CREATININE RATIO Routine 01/15/2025 12:36 PM EDT Acute kidney failure with tubular necrosis (HCC) URINALYSIS WITH MICROSCOPIC Routine 01/15/2025 12:36 PM EDT Acute kidney failure with tubular necrosis (HCC) CBC AND DIFFERENTIAL Routine 01/15/2025 12:36 PM EDT Acute kidney failure with tubular necrosis (HCC) RENAL FUNCTION PANEL Routine 01/15/2025 12:36 PM EDT Acute kidney failure with tubular necrosis (HCC) documented in this encounter Results * Microscopic Examination (01/15/2025 12:36 PM EDT) WBC, Urine None seen 0 - 5 /hpf [facility] RBC, Urine None seen 0 - 2 /hpf [facility] Squamous Epithelial, Urine None seen 0 - 10 /hpf [facility] Casts None seen None seen /lpf [facility] Bacteria, Urine None seen None seen/Few [facility] 01/15/2025 12:3 6 PM EDT 01/15/2025 Nate Flores MD LAB MICROBIOLOGY - GENERAL OR DERABLES Final Result [facility] [address] [place] [address] * (ABNORMAL) Urinalysis with microscopic (01/15/2025 12:36 PM EDT) Specific [place], Urine 1.006 1.005 - 1.030 [facility] pH Urine 8.0(H) 5.0 - 7.5 [facility] Color, Urine Yellow Yellow [facility] Appearance Urine Clear Clear [facility] WBC Esterase Urine Negative Negative [facility] Protein, Ur Negative Negative/Tra ce [facility] [phone] Glucose, Ur Negative Negative [facility] Ketones, Urine Negative Negative [facility] Blood Urine Negative Negative [facility] Bilirubin Urine Negative Negative [facility] Urobilinogen Urine 0.2 0.2 - 1.0 mg/dL [facility] Nitrite, Urine Negative Negative [facility] Microscopic Examination Comment [facility] Comment:Microscopic follows if indicated. Other Microsc. Observations See below: [facility] [phone] Comment:Microscopic was zack cated and was performed. Urine Urine specimen obtained by clean catch procedure / Unknown 01/15/2025 12:36 PM EDT 01/15/2025 us Nate Flores MD LAB URINE ORDERABLES Final Re sult [facility] [address] [place] [address] * (ABNORMAL) Renal Function Panel (01/15/2025 12:36 PM EDT) Glucose 86 70 - 99 mg/dL [facility] BUN 8 6 - 20 mg/dL [facility] Creatinine 0.80 0.76 - 1.27 mg/dL [facility] eGFR CKD-EPI CR 2020 118 >59 mL/min/1.7 3 [facility] BUN/Creatinine Ratio 10 9 - 20 [facility] Sodium 143 134 - 144 mmol/L [facility] Potassium 3.9 3.5 - 5.2 mmol/L [facility] Chloride 103 96 - 106 mmol/L [facility] Bicarbonate (CO2) 23 20 - 29 mmol/L [facility] Calcium 10.1 8.7 - 10.2 mg/dL [facility] Albumin 4.7 4.1 - 5.1 g/dL [facility] Phosphorus 2.4(L) 2.8 - 4.1 mg/dL [facility] Blood Venous blood / Unknown 01/15/2025 12:36 PM EDT 01/15/2025 us Nate Flores MD LAB BLOOD ORDERABLES Final Re sult [facility] [address] [place] [address] * (ABNORMAL) CBC and Differential (01/15/2025 12:36 PM EDT) WBC 12.4(H) 3.4 - 10.8 x10E3/uL [facility] RBC 4.56 4.14 - 5.80 x10E6/uL [facility] Hemoglobin 13.6 13.0 - 17.7 g/dL [facility] Hematocrit 40.9 37.5 - 51.0 % [facility] MCV 90 79 - 97 fL [facility] MCH 29.8 26.6 - 33.0 pg [facility] MCHC 33.3 31.5 - 35.7 g/dL [facility] RDW 15.6(H) 11.6 - 15.4 % [facility] Platelets 337 150 - 450 x10E3/uL [facility] Neutrophils Relative 67 Not Estab. % [facility] Lymphocytes Relative 23 Not Estab. % [facility] Monocytes 7 Not Estab. % [facility] Eosinophils Relative 1 Not Estab. % [facility] Basophils Relative 0 Not Estab. % [facility] Neutrophils Absolute 8.4(H) 1.4 - 7.0 x10E3/uL [facility] Lymphocytes Absolute 2.8 0.7 - 3.1 x10E3/uL [facility] Monocytes Absolute 0.8 0.1 - 0.9 x10E3/uL [facility] Eosinophils Absolute 0.1 0.0 - 0.4 x10E3/uL [facility] Basophils Absolute 0.1 0.0 - 0.2 x10E3/uL [facility] Immature Granulocytes 2 Not Estab. % [facility] Immature Grans (Absolute) 0.2(H) 0.0 - 0.1 x10E3/uL [facility] Comment: (An elevated percentage of Immature Granulocytes has not been found to be clinically significant as a sole clinical predictor of disease. Does NOT include bands or blast cells. associated physiological leukocytosis may also show increased immature granulocytes without clinical significance.) Blood Venous blood / Unknown 01/15/2025 12:36 PM EDT 01/15/2025 us Nate Flores MD LAB BLOOD ORDERABLES Final Re sult [facility] [address] [place] [phone] documented in this encounter Visit Diagnoses Diagnosis Acute kidney failure with tubular necrosis (HCC)- Primary documented in this encounter Care Teams Rubber Boots And Shoes Repairer Relationship Specialty Start Date End Date Annika Damon [address] [place] [address] PCP - General 12/11/24 documented as of this encounter
--- NOTE | 2025-01-16 10:03 | A.OFFVIS_ITS ---
Intake Visit Reasons: 6m encephalopathy Accompanied by: Mother Allergies No Known Allergies (No Known Allergies*) Allergy (Verified 01/16/25 10:09) Medication List - Last Reconciled 01/16/25 by Crys Villarreal CNP amitriptyline 25 mg PO BEDTIME atorvastatin 20 mg PO DAILY carbidopa-levodopa 25-100 mg 1 tab PO TID 30 days gabapentin 300 mg PO TID 30 days gabapentin 100 mg PO TID haloperidol 5 mg PO BEDTIME hydrochlorothiazide 25 mg PO DAILY hydroxyzine pamoate 25 mg PO QID PRN lisinopril 10 mg PO BID 90 days melatonin 3 mg PO BEDTIME PRN omeprazole 40 mg PO DAILY 90 days quetiapine 100 mg PO BEDTIME quetiapine 400 mg PO BEDTIME tadalafil 5 mg PO DAILY 90 days tamsulosin 0.4 mg PO BEDTIME 30 days tirzepatide (weight loss) (Zepbound) 5 mg subcut QWEEK trazodone 100 mg PO BEDTIME HPI Comments Details: 34-year-old man with h/o drug abuse, drug overdose resulting in coma and anoxic brain injury, and associated behavioral syndrome who went to 2 drug rehab programs and has not used any substances, including alcohol or marijuana, since 05/2023. He was here with his mother. He was doing okay. He has not taken baclofen for a few months and spasms had not been happening. No significant tremors. No falls. Sleep was okay. Mood was okay. He was following with psychiatrist. He had lost weight with Zepbound. He wanted to try to eliminate as many medications as possible and was asking to stop carbidopa-levodopa. [facility] Medical History (Updated 01/16/25 @ 10:08 by Crys Villarreal CNP) Hypogonadism in male Hypogonadotropic hypogonadism Right foot drop Leg pain, bilateral Polysubstance use disorder PTSD (post-traumatic stress disorder) Ataxia Anoxia of brain Bipolar 1 disorder PSP (progressive supranuclear palsy) Parkinsonism OAB (overactive bladder) Self-catheterizes urinary bladder Anxiety OCD (obsessive compulsive disorder) Hx of traumatic brain injury BPH (benign prostatic hyperplasia) Spasticity Obstructive sleep apnea Overactive bladder Surgical History Hx of cystoscopy History of esophagogastroduodenoscopy (EGD) Family History Father Cancer Mother No problems noted. Social History Household Members: None Housing: House Are you a primary manager career to a significant other at home: No Do you presently have visiting nurse or other home services: No Alcohol intake: current Alcohol intake frequency: does not drink Alcohol type: beer Comment: medicated, see MAR Patient Tobacco Use Status: Current everyday Tobacco user Tobacco use type: Cigarette Cigarettes Per Day: 10 Years Smoked: 15 e-Cigarette/Vaping Use: Currently Using Second Hand Smoke Exposure: Yes Substance Use Type: Marijuana service: No Current occupational status: disabled Sexual orientation: Don't Know Cognitive needs: No Hearing needs: No Vision needs: No Review of Systems Const Denies chills, Denies daytime sleepiness, Denies difficulty sleeping, Denies fatigue, Denies fever(s), Denies frequent falls, Denies headache(s), Denies increased appetite, Denies poor appetite, Denies snoring, Reports weakness, Denies weight gain and Denies weight loss Eyes Denies loss of vision ENT Denies vertigo, Denies dizziness and Denies headache(s) Card Denies chest pain at rest, Denies chest pain with activity, Denies syncope, Denies leg edema and Denies palpitations Resp Denies snoring GI Denies constipation, Denies heartburn, Denies diarrhea and Denies nausea Denies urinary frequency, Denies urinary incontinence and Denies urinary urgency Musc Reports abnormal gait (balance difficulty), Denies numbness and Denies tingling Skin/Breast Denies dry skin and Denies rash Neuro Reports abnormal gait (balance difficulty), Denies vertigo, Denies dizziness, Denies syncope, Denies frequent falls, Denies headache(s), Denies lack of coordination, Denies loss of vision, Denies memory loss, Denies numbness, Denies restless legs, Denies seizure-like activity, Denies tingling, Denies paresthesias, Reports tremor(s) and Reports weakness Psych Denies anxiety, Denies depression, Denies auditory hallucinations, Denies memory loss, Denies visual hallucinations and Denies suicidal ideation Endo Denies fatigue and Denies palpitations Physical Exam Const Other: General Appearance:? normal, in no acute distress. Skin:? no rashes, no significant birthmarks. Heart:? S1, S2 normal, no murmurs. Lungs:? clear anteriorly and posteriorly. Extremities:? no edema. Psych:? alert, oriented, cognitive function intact, cooperative with exam. Neuro Other: Mental Status:?Normal attention, orientation, and affect.? Cranial Nerves:?Pupils are equal, round and reactive to light. External occular muscles are intact. Visual osullivan are full. Face is symmetrical. Facial sensations are normal. Tongue is midline. Palate elevates symmetrically. Shoulder shrugging is normal. Hearing to bedside conversation is normal. Motor Examination:?DTRs are 2-3 in arms and 3 in legs with flexor plantars. Sensory Exam:?....? Coordination:?No ataxia,?no titubation.? Gait Exam: Within normal limits. Cerebellar Signs:?[id number] is okay. Extrapyramidal System:?No tremor, rigidity with normal facial expressions.? Pronator Drift:?Not present.? Involuntary Movements:?Mild bilateral hand postural tremor. Speech:?Normal.? Results Reviewed Results Reviewed: MRI brain WO at [facility] in Mar 2020: same as before, brainstem seems ok MRI brain WO at [facility] in 2012: b/l deep WM symmetrical borderzone areas hyperintensity on DWI and FLAIR, ?anoxic injury. Assessment & Plan Assessment & Plan (1) Encephalopathy: Code(s): G93.40 - Encephalopathy, unspecified Category: Medical (2) Anoxic brain damage: Code(s): G93.1 - Anoxic brain damage, not elsewhere classified Category: Medical (3) Parkinsonism: Code(s): G20 - Parkinson's disease Category: Medical Qualifiers: Parkinsonism type: unspecified Qualified Code(s): G20 - Parkinson's disease Plan: He was interested in reducing the amount of medications he was taking and wanted to stop carbidopa-levodopa if possible. Risks vs benefits of stopping medication discussed, and he was still interested in stopping medication. Stop carbidopa-levodopa 25-100mg 1 table three times a day. May restart medication in the future if symptoms return/worsen. Follow up in 3 months or sooner as needed. (4) Spasticity: Code(s): R25.2 - Cramp and spasm Category: Medical Plan: He has not taken baclofen 10mg 1 tablet twice a day as needed for few months. No significant spasticity and medication was not needed at this time, can consider restarting medication in the future if needed. (5) History of polydrug abuse: Code(s): F19.11 - Other psychoactive substance abuse, in remission Category: Medical Plan . Medications: Discontinued carbidopa-levodopa 25-100 mg Discontinued Reason: Doctor's Order 1 tab PO TID 30 days 90 tabs 5RF Coding Level of Care Code Est Pt Level 4 (86504) Diagnoses Encephalopathy G93.40 Anoxic brain damage G93.1 Parkinsonism, unspecified Parkinsonism type G20 Parkinsonism type: unspecified Spasticity R25.2 History of polydrug abuse F19.11
--- OUTSIDE RECORDS SUMMARY | 2025-01-16 11:50 | XMS_ITS | Clinical Summary ---
Author Organization [facility] Address [address] [address] Phone Care Team Providers Care Biologics Specialist Name Role Phone Annika Damon Primary Care Provider [phone] Encounters Date Type Department Care Team Description 01/14/2025 4:30 PM EDT Office Visit [facility] [address] [place] [address] Nate Flores MD Acute kidney failure with tubular necrosis (HCC) (Primary Dx) 12/11/2024 Documentation Only [facility] [address] [place] [address] Sulema Robles MA from Last 3 Months Social History Tobacco Use Types Packs/Day Years Used Date Smoking Tobacco: Never Assessed Sex and Gender Information Value Date Recorded Sex Assigned at Not on file Legal Sex Male 5:24 PM EST Gender Identity Not on file Sexual Orientation Not on file Last Filed Vital Signs Vital Sign Reading Time Taken Comments Blood Pressure 143/90 01/14/2025 4:46 PM EDT Pulse - - Temperature - - Respiratory Rate - - Oxygen Saturation - - Inhaled Oxygen Concentration - - Weight - - Height - - Body Mass Index - - Plan of Treatment Upcoming Encounters Date Type Department Care Team (Late st Contact Info) Description 04/19/2025 2:15 PM EST Office Visit [facility] [address] [place] [address] Nate Flores MD [address] [place] [address] [place] [address] Health Maintenance Due Date Last Done Comments Hepatitis B Vaccine (1 of 3 - 19+ 3-dose series) 12/06/2007 Pneumococcal Vaccine: Peds ( 0 to 5 Years) and At-Risk Patients (6 to 49 Years) (3 of 3 - PCV) 07/16/2017 07/16/2016, 01/28/2013 Influenza Vaccine (#1) 2024 Pneumococcal Vaccine: 50+ Years Discontinued 7, 01/28/2013 Procedures Procedure Name Priority Date/Time Associated Diagnosis Comments URINE ALBUMIN / CREATININE RATIO Routine 01/15/2025 12:36 PM EDT Acute kidney failure with tubular necrosis (HCC) PROTEIN / CREATININE RATIO, URINE Routine 01/15/2025 12:36 PM EDT Acute kidney failure with tubular necrosis (HCC) URINALYSIS WITH MICROSCOPIC Routine 01/15/2025 12:36 PM EDT Acute kidney failure with tubular necrosis (HCC) RENAL FUNCTION PANEL Routine 01/15/2025 12:36 PM EDT Acute kidney failure with tubular necrosis (HCC) CBC AND DIFFERENTIAL Routine 01/15/2025 12:36 PM EDT Acute kidney failure with tubular necrosis (HCC) MICROSCOPIC EXAMINATION - DO NOT USE Routine 01/15/2025 12:36 PM EDT from Last 3 Months Results * Microscopic Examination (01/15/2025 12:36 PM EDT) WBC, Urine None seen 0 - 5 /hpf [facility] RBC, Urine None seen 0 - 2 /hpf [facility] Squamous Epithelial, Urine None seen 0 - 10 /hpf [facility] Casts None seen None seen /lpf [facility] Bacteria, Urine None seen None seen/Few [facility] 01/15/2025 12:3 6 PM EDT 01/15/2025 us Nate Flores MD LAB MICROBIOLOGY - GENERAL OR DERABLES Final Result [facility] [address] [place] [address] * (ABNORMAL) Urinalysis with microscopic (01/15/2025 12:36 PM EDT) Specific [place], Urine 1.006 1.005 - 1.030 [facility] [phone] pH Urine 8.0(H) 5.0 - 7.5 [facility] Color, Urine Yellow Yellow [facility] Appearance Urine Clear Clear [facility] [place] WBC Esterase Urine Negative Negative [facility] Protein, Ur Negative Negative/Tra ce [facility] [phone] Glucose, Ur Negative Negative [facility] Ketones, Urine Negative Negative [facility] [place] Blood Urine Negative Negative [facility] Bilirubin Urine Negative Negative [facility] [place] [phone] Urobilinogen Urine 0.2 0.2 - 1.0 mg/dL [facility] Nitrite, Urine Negative Negative [facility] Microscopic Examination Comment [facility] [phone] Comment:Microscopic follows if indicated. Other Microsc. Observations See below: [facility] Comment:Microscopic was zack cated and was performed. Urine Urine specimen obtained by clean catch procedure / Unknown 01/15/2025 12:36 PM EDT 01/15/2025 Nate Flores MD LAB URINE ORDERABLES Final Re sult [facility] [address] [place] [address] * (ABNORMAL) CBC and Differential (01/15/2025 12:36 PM EDT) WBC 12.4(H) 3.4 - 10.8 x10E3/uL [facility] RBC 4.56 4.14 - 5.80 x10E6/uL [facility] Hemoglobin 13.6 13.0 - 17.7 g/dL [facility] Hematocrit 40.9 37.5 - 51.0 % [facility] MCV 90 79 - 97 fL [facility] MCH 29.8 26.6 - 33.0 pg [facility] MCHC 33.3 31.5 - 35.7 g/dL [facility] RDW 15.6(H) 11.6 - 15.4 % [facility] Platelets 337 150 - 450 x10E3/uL [facility] Neutrophils Relative 67 Not Estab. % [facility] Lymphocytes Relative 23 Not Estab. % [facility] Monocytes 7 Not Estab. % [facility] Eosinophils Relative 1 Not Estab. % [facility] Basophils Relative 0 Not Estab. % [facility] Neutrophils Absolute 8.4(H) 1.4 - 7.0 x10E3/uL [facility] Lymphocytes Absolute 2.8 0.7 - 3.1 x10E3/uL [facility] Monocytes Absolute 0.8 0.1 - 0.9 x10E3/uL [facility] Eosinophils Absolute 0.1 0.0 - 0.4 x10E3/uL [facility] Basophils Absolute 0.1 0.0 - 0.2 x10E3/uL [facility] Immature Granulocytes 2 Not Estab. % [facility] Immature Grans (Absolute) 0.2(H) 0.0 - 0.1 x10E3/uL [facility] Comment: (An elevated percentage of Immature Granulocytes has not been found to be clinically significant as a sole clinical predictor of disease. Does NOT include bands or blast cells. associated physiological leukocytosis may also show increased immature granulocytes without clinical significance.) Blood Venous blood / Unknown 01/15/2025 12:36 PM EDT 01/15/2025 us Nate Flores MD LAB BLOOD ORDERABLES [facility] [place] [address] [place] [address] * (ABNORMAL) Renal Function Panel (01/15/2025 12:36 PM EDT) Glucose 86 70 - 99 mg/dL [facility] BUN 8 6 - 20 mg/dL [facility] Creatinine 0.80 0.76 - 1.27 mg/dL [facility] eGFR CKD-EPI CR 2020 118 >59 mL/min/1.7 3 [facility] BUN/Creatinine Ratio 10 9 - 20 [facility] Sodium 143 134 - 144 mmol/L [facility] Potassium 3.9 3.5 - 5.2 mmol/L [facility] Chloride 103 96 - 106 mmol/L [facility] Bicarbonate (CO2) 23 20 - 29 mmol/L [facility] Calcium 10.1 8.7 - 10.2 mg/dL [facility] Albumin 4.7 4.1 - 5.1 g/dL [facility] Phosphorus 2.4(L) 2.8 - 4.1 mg/dL [facility] Blood Venous blood / Unknown 01/15/2025 12:36 PM EDT 01/15/2025 us Nate Flores MD LAB BLOOD ORDERABLES Final Re sult [facility] [address] [place] [address] from Last 3 Months Insurance Medicare Medicaid [place] Care Teams Biologics Specialist Relationship Specialty Start Date End Date Annika Damon [address] [place] [address] PCP - General 12/11/24
--- OUTSIDE RECORDS SUMMARY | 2025-01-16 11:50 | XMS_ITS | Clinical Summary ---
Author Organization [facility] Address [address] [place] [address] Care Team Providers Care Senior Javascript Engineer Name Role Phone Pcp, No Primary Care [...] 7 DAYS 3 Active chorionic gonadotropin (PREGNYL) 31250 units injection 3 Active clonazePAM (KlonoPIN) 1 [...] Vaccines (No Doses Required) Completed Care Teams Senior Javascript Engineer Relationship Specialty Start Date End Date Pcp, No PCP - General General Medicine 09/22/22
--- OUTSIDE RECORDS SUMMARY | 2025-01-16 11:50 | XMS_ITS | Encounter Summary ---
Author Organization [facility] Address [address] [place] [address] Care Team Providers Care Mechanical Cad Drafter Name Role Phone Bobby Bazan MD Primary Care Provider [phone] Reason for Visit * Reason Onset Date Comments Med Refill 01/14/2025 Zepbound Encounter Details Date Type Department Care Team (Late Contact Info) Description 01/14/2025 Telephone Bariatric Surgery [address] [address] Jose Johnson MD [address] [place] [phone] Social History Tobacco Use Types Packs/Day Years [...] as of this encounter Progress Notes * Winnie Castro - 01/14/2025 10:15 AM EDT Patient did well on Zepbound 10 mgs and would like a refill with titration. If appropriate, please send script for Zepbound 12.5 mgs to their pharmacy. The patient does have a follow up in 03/07/2025 documented in this encounter Plan of Treatment Upcoming Encounters Date Type Department Care Team (Late Contact Info) Description 03/07/2025 8:45 AM EST Office Visit Bariatric Surgery [facility] [address] [phone] Jose Johnson MD [address] [place] [phone] documented as of this encounter Visit Diagnoses Not on filedocumented in this encounter Care Teams Mechanical Cad Drafter Relationship Specialty Start Date End Date Bobby Bazan MD [address] [place] [address] PCP - General 01/02/14 documented as of this encounter
--- OUTSIDE RECORDS SUMMARY | 2025-01-16 11:50 | XMS_ITS | Encounter Summary ---
Author Organization [facility] Address [address] [place] [address] Phone Care Team Providers Care Cadworx Piping Designer Name Role Phone DonnaAnnika noble Primary Care Provider [phone] Encounter Details Date Type Department Care Team (Late st Contact Info) Description 12/11/2024 Documentation Only [facility] [address] [place] [address] Sulema RoblesYODER, [place] [address] [place] [address] Social History Tobacco Use Types [...] Visit [facility] [address] [place] [address] Nate Flores MD [address] [place] [address] documented as of this encounter Visit Diagnoses Not on filedocumented in this encounter Care Teams Cadworx Piping Designer Relationship Specialty Start Date End Date Annika Damon [address] [place] [address] PCP - General 12/11/24 documented as of this encounter
--- OUTSIDE RECORDS SUMMARY | 2025-01-16 11:50 | XMS_ITS | Clinical Summary ---
Author Organization [address] [facility] Address [address] [place] [address] Phone Care Team Providers Care Transfer Engineer Name Role Phone Bobby Bazan MD Primary Care Provider [phone] Allergies No known active allergies Medications carbidopa-levod [...] day. 08/09/2024 Active tirzepatide, weight loss, (Zepbound) 12.5 mg/0.5 mL injection Inject 0.5 mL (12.5 mg total) under the skin every 7 (seven) days. 2 mL 01/14/2025 5 Active tirzepatide, weight loss, (Zepbound) 10 mg/0.5 [...] (BMI 30-39.9) 01/21/2014 Depression, major, in remission ([facility] V24) Anxiety disorder 01/21/2014 Anoxic encephalopathy ([facility] V24, [facility] V28) 01/21/2014 Overview (04/12/2024): From heroing od Acid reflux 01/21/2014 Encounters Date Type Department Care Team Description 01/14/2025 Telephone Bariatric Surgery - [place] [address] [facility] [address] [place] [address] Jose Johnson MD 12/07/2024 Telephone Bariatric Surgery - [place] [address] [facility] [address] [place] [address] Jose Johnson MD 11/21/2024 Telephone [facility] [address] [place] [address] Annika Damon FNP 11/20/2024 Telephone Bariatric Surgery - [place] [address] [facility] [address] [place] [address] Jose Johnson MD 10/19/2024 Telephone Bariatric Surgery - [place] [address] [facility] [address] [place] [phone] Jose Johnson MD from Last 3 Months Immunizations Immunization Administration Dates Next Due Tdap Tetanus diptheria acell ular pertussis (Boostrix; Adacel) 7yo and older 03/29/2014 Surgical History Surgery Date Site/Laterality Comments OTHER SURGICAL HISTORY PROCEDURE: NM EXCISION MALIGNANT LESION F/E/E/N/L 0.5 CM/<; COMMENT: [...] AM EST Office Visit Bariatric Surgery - [address] [place] [address] Jose Johnson MD [address] [place] [address] Health Maintenance Due Date Last Done Comments [...] Influencers of Health Screening 04/13/2024 COVID-19 Vaccine (3 - season) 2024 07/28/2020, 07/07/2020 Influenza Vaccine [...] * Annual BMP Blood Test (03/30/2014) Pathologist [facility] Annual BMP Blood Test abstracted Historical Provider HEALTH MAINTENANCE Final Result * Hepatitis C Screening (03/30/2014) [facility] Hepatitis C Screening abstracted Historical Provider HEALTH MAINTENANCE Final Result * (ABNORMAL) Lipid panel (03/30/2014) [facility] LDL/HDL Ratio 5(A) 0 - 4 Triglycerides 235(A) 0 - 150 mg/dL Cholesterol 166 0 - 200 mg/dL HDL 31(A) >=40 mg/dL LDL Cholesterol 88 0 - 100 mg/dL Blood Venous blood specimen / Unknown us Historical Provider LAB BLOOD ORDERABLES Samina l Result from Last 3 Months or Most Recently Relevant to Health Maintenance Insurance MEDICARE MEDICAID - [place] Care Teams Transfer Engineer Relationship Specialty Start Date End Date Bobby Bazan MD [address] [place] [address] PCP - General 01/02/14
== END 2025-01-16 10:20 | disposition home or self-care (01) ==
LOC: HO.HSM 09:50
PROVIDERS: PCP Nurse Practitioner Family; Referring Provider Nurse Practitioner Family; Visit Provider Registered Nurse
DX: G93.1 Anoxic brain damage, not elsewhere classified (principal); G93.40 Encephalopathy, unspecified; G20.C Parkinsonism, unspecified; F19.11 Other psychoactive substance abuse, in remission; R25.2 Cramp and spasm
CPT/HCPCS: 99214

== ENCOUNTER → 2025-01-16 09:49 | Outpatient (BNVA) | payer MEDICARE, MEDICAID, SELFPAY | PROVIDERS: PCP Nurse Practitioner Family; Referring Provider Nurse Practitioner Family; Visit Provider Registered Nurse | DX: G93.1 Anoxic brain damage, not elsewhere classified (principal); G93.40 Encephalopathy, unspecified; G20.C Parkinsonism, unspecified; R25.2 Cramp and spasm; F19.11 Other psychoactive substance abuse, in remission; Z79.899 Other long term (current) drug therapy | CPT/HCPCS: 99212 ==

== ENCOUNTER 2025-01-23 12:34 | Outpatient (AMB) | payer MEDICARE, MEDICAID, SELFPAY ==
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
--- OUTSIDE RECORDS SUMMARY | 2025-01-23 15:13 | XMS_ITS | Clinical Summary ---
Author Organization [facility] Address [address] [place] [address] Care Team Providers Care Microarray Operations Vice President Name Role Phone Pcp, No Primary Care [...] 7 DAYS 3 Active chorionic gonadotropin (PREGNYL) 02842 units injection 3 Active clonazePAM (KlonoPIN) 1 [...] Vaccines (No Doses Required) Completed Care Teams Microarray Operations Vice President Relationship Specialty Start Date End Date Pcp, No PCP - General General Medicine 09/22/22
== END 2025-01-23 13:36 | disposition home or self-care (01) ==
LOC: HO.HUSH 12:35
PROVIDERS: PCP Nurse Practitioner Family; Visit Provider Urology
DX: N39.0 Urinary tract infection, site not specified (principal); N52.9 Male erectile dysfunction, unspecified
CPT/HCPCS: 99213

== ENCOUNTER → 2025-01-23 12:34 | Outpatient (BNVA) | payer MEDICARE, MEDICAID, SELFPAY | PROVIDERS: PCP Nurse Practitioner Family; Visit Provider Urology | DX: N31.9 Neuromuscular dysfunction of bladder, unspecified (principal); N52.9 Male erectile dysfunction, unspecified; N21.9 Calculus of lower urinary tract, unspecified | CPT/HCPCS: 51798; 99212 ==